=== PATIENT | female | born 1965 | race Caucasian/White ===

== ENCOUNTER → 2017-06-05 14:14 | Outpatient (CLI) | payer BC, SELFPAY ==
[2017-06-05 16:52] LABS: Thyroid Stim Hormone (TSH) 3.89 uIU/mL (0.358-3.74)
[2017-06-06 09:22] LABS: Vitamin B12 422 pg/mL (211-911)
== END ==
PROVIDERS: Family Provider Family Medicine; PCP Family Medicine; Visit Provider Psychiatry & Neurology Neurology
DX: R41.3 Other amnesia (principal)
CPT/HCPCS: 36415; 82607; 82746; 84443

== ENCOUNTER → 2017-06-19 17:55 | Outpatient (CLI) | payer BC, SELFPAY | PROVIDERS: Family Provider Family Medicine; PCP Family Medicine; Visit Provider Psychiatry & Neurology Neurology | DX: R41.3 Other amnesia (principal); Z79.899 Other long term (current) drug therapy; E66.01 Morbid (severe) obesity due to excess calories ==

== ENCOUNTER 2020-09-19 11:53 | Outpatient (RCR) | payer BC, SELFPAY | END 2020-10-18 23:59 | LOC: LABSPEC 11:53 | PROVIDERS: PCP Family Medicine; Visit Provider Family Medicine | DX: Z03.818 Encounter for observation for suspected exposure to other biological agents ruled out (principal) | CPT/HCPCS: 87635; U0005; U0003 ==

== ENCOUNTER 2024-12-23 13:11 | Emergency (ER) | payer BC, SELFPAY ==
[2024-12-23 13:16] VITALS: BP 144/87; PULSE 68; RESP 12; TEMP 36; O2SAT 97; BMI 34.9
[2024-12-23 13:20] VITALS: BP 146/83; PULSE 70; RESP 15; O2SAT 95
--- NOTE | 2024-12-23 13:32 | EKG12_ITS ---
Test Reason : CHEST PAIN Blood Pressure : */* mmHG Vent. Rate : 63 BPM Atrial Rate : 63 BPM P-R Int : 168 ms QRS Dur : 76 ms QT Int : 424 ms P-R-T Axes : 31 -7 27 degrees QTcB Int : 433 ms Normal sinus rhythm Low voltage QRS Borderline ECG Confirmed by VIRI TAM, XENIA ([id number]), editorial writer JATINDER LARSEN ([id number]) on 12/27/2024 9:03:13 AM Referred By: Confirmed By: XENIA MEREDITH MD
--- NOTE | 2024-12-23 13:48 | RAD_ITS ---
PROCEDURE: CHEST PA AND LATERAL 12/23/2024 REASON FOR EXAM: CHEST PAIN TECHNIQUE: Procedure Code: RADCXR Modality: DX Procedure: CHEST PA AND LATERAL COMPARISON: None FINDINGS: Hardware: EKG leads Heart: Normal Mediastinum: No Lungs: The lungs are clear. Bones: Mild degenerative changes. Mild exaggeration of the thoracic kyphosis. Grade 1 anterolisthesis in the lower lumbar spine. RAD/Chest PA and Lateral IMPRESSION: No acute cardiopulmonary process Reading Location: [id number]
[2024-12-23 13:52] LABS: Hematocrit 38.9 % (37-47); Hemoglobin 13.0 g/dL (12.0-15.0); Immature Granulocytes Count 0.010 X10^3/uL (0.0-0.0); Mean Corp Hgb Conc 33.4 g/dL (32-36); Mean Corpuscular Volume 88.8 fL (81-99); Mean Platelet Vol. 9.5 fl (6.2-12.0); NRBC Flagged by Analyzer 0 % (0-5); Platelet Count 282 K/mm3 (150-450); RBC Distribution Width CV 14.7 % (11.6-14.6); RBC Distribution Width SD 47.8 fl (35.1-43.9); Red Blood Count 4.38 M/mm3 (4.2-5.4); White Blood Count 4.8 K/mm3 (4.4-11.0)
[2024-12-23 14:26] LABS: Anion Gap 12 (5-15); BUN 12 mg/dL (4-19); BUN/Creat Ratio 12.0 RATIO (10-20); Calcium,Total 8.9 mg/dL (7.6-11.0); Carbon Dioxide 21.3 mmol/L (21.0-32.0); Chloride 108 mmol/L (98-108); Estimated Creatinine Clearance 69.64 ml/min (50-250); Glucose 109 mg/dL (70-99); Potassium 4.1 mmol/L (3.3-5.1); Pro- Brain NATRIURETIC PEPTIDE 96 pg/mL (<=900); Troponin T High Sensitivity 7 ng/L (<=14)
[2024-12-23 15:08] VITALS: BP 140/96; PULSE 55; RESP 14; O2SAT 97
[2024-12-23 15:54] LABS: Troponin T High Sens 2 HR 10 ng/L (<=14)
[2024-12-23 16:45] VITALS: BP 139/70; PULSE 56; RESP 16; O2SAT 99
[2024-12-23 16:58] VITALS: O2SAT 95
[2024-12-23 17:05] VITALS: PULSE 61; RESP 14; O2SAT 100
--- NOTE | 2024-12-23 17:41 | ED.VIS.CHEST ---
HPI History of Present Illness Chief Complaint: Chest Pain Narrative Narrative: Patient is a 59-year-old female who presented to the emergency department the chief complaint of chest pressure. States that yesterday she developed chest pressure and has been constant. States that nothing makes this better or worse. Patient denies any recent travel history denies any history of blood clots. Patient notes that she has around her sick grandchild recently and has been complaining of upper respiratory symptoms as well. Patient states that she has not had a stress test in the outpatient setting. Patient states that she does smoke. PFSH PFSH Home Medications ?Medication ?Instructions ?Recorded ?Last Taken ?Type bupropion HCl 300 mg 24 hr tablet, 300 mg PO DAILY 06/07/15 Unknown History extended release escitalopram oxalate 20 mg tablet 20 mg PO DAILY 06/07/15 Unknown History etodolac 300 mg capsule 300 mg PO TIDCM ##30 06/07/15 Unknown Rx gabapentin 400 mg capsule 400 mg PO DAILY 06/07/15 Unknown History gabapentin 800 mg tablet 800 mg PO QHS 06/07/15 Unknown History propranolol 10 mg tablet 10 mg PO TID PRN PRN UNKNOWN 06/07/15 Unknown History sumatriptan succinate 50 mg tablet 50 mg PO .X1 PRN 06/07/15 Unknown History tizanidine 4 mg tablet (Zanaflex) 4 mg PO Q8H PRN PRN Muscle Spasm 06/07/15 Unknown History topiramate 50 mg tablet (Topamax) 50 mg PO BID 06/07/15 Unknown History albuterol sulfate 90 mcg/actuation 2 puff inhalation Q6H PRN 12/23/24 Unknown Rx aerosol inhaler (Ventolin HFA) shortness of breath or wheezing #8.5 grams doxycycline hyclate 100 mg capsule 100 mg PO BID 5 days #10 caps 12/23/24 Unknown Rx prednisone 50 mg tablet 50 mg PO DAILY 5 days #5 tabs 12/23/24 Unknown Rx Allergy/AdvReac Type Severity Reaction Status Date / Time No Known Allergies Allergy Verified 06/07/15 17:04 Social History Smoking Status: Current every day smoker tobacco type: cigarettes ROS ROS ED ROS Narrative Constitutional: Denies any fevers, chills, headaches Cardiovascular: Complains of chest pressure as noted above denies palpitations Respiratory: Complains of cough denies any shortness of breath or wheezing Abdomen: Denies abdominal pain nausea vomit diarrhea Neurological: Denies any numbness, weakness, tingling Musculoskeletal: Denies any back pain Skin: Denies any rashes or lesions EXAM Physical Exam Narrative Exam Narrative: General: Patient was lying in bed rest comfortably did not appear to be in acute distress Head: Atraumatic, normocephalic Eyes: PERRL bilaterally, EOMI bilateral, no conjunctival injection noted Neck: Soft, supple, trachea midline Cardiovascular: Regular rate and rhythm Respiratory: Patient has end expiratory wheezing noted bilaterally Extremities: +5/5 strength noted in the bilateral lower extremity radial pulses +2/4 in the bilateral extremities, no pedal edema exam Neurological: Patient following commands as she was at [facility] years 2024 Skin: Warm, dry, tact no rashes or lesions noted Const Vital Signs: 12/23/24 13:16 12/23/24 13:20 12/23/24 13:52 Temperature 96.8 F L Temperature Source Temporal Pulse Rate 68 70 Respiratory Rate 12 15 Blood Pressure 144/87 H 146/83 H Blood Pressure Mean 106 104 Pulse Ox 97 95 Oxygen Delivery Method Room Air Room Air Room Air 12/23/24 15:08 12/23/24 16:45 12/23/24 17:05 Temperature Temperature Source Pulse Rate 55 L 56 L Respiratory Rate 14 16 Blood Pressure 140/96 H 139/70 H Blood Pressure Mean 110 93 Pulse Ox 97 99 100 Oxygen Delivery Method Room Air Room Air Room Air 12/23/24 17:05 Temperature Temperature Source Pulse Rate 61 Respiratory Rate 14 Blood Pressure Blood Pressure Mean Pulse Ox Oxygen Delivery Method MDM MDM MDM Narrative Medical decision making narrative: Patient is a 51-year-old female who presents to the emergency department chief complaint of chest discomfort. States that this pressure has been constant since yesterday and nothing makes this better or worse. On the differential diagnose includes but limited to ACS, pneumonia, pneumothorax, upper respiratory infection secondary viral etiology, COPD exacerbation. Once workup is obtained reviewed she will be reevaluated. Patient's CBC reviewed showed no evidence leukocytosis white blood count normal at 4.8, hemoglobin stable at 13, platelet count was noted to be 282. Patient sodium was 141, potassium normal 4.1, creatinine was 0.97. Patient's troponin was 7 with a delta troponin of 10 proBNP normal at 96. Patient's EKG showed sinus rhythm with a rate of [address] interval normal at 168. Patient chest x-ray reviewed by myself and by radiology which showed no acute cardiopulmonary processes. Patient was given 3 DuoNebs and Solu-Medrol. On reevaluation patient she is feeling better she would like to go home at this point time. Patient be given prescriptions for doxycycline as well as prednisone for the next 5 days. She will be given albuterol inhaler as well. She was vies follow-up with Dr. Powers send return with worsening symptoms or concerns. Given that she has not had a stress test in the outpatient setting she is also advised that she would have 1 of these is obtained as well. She is agreeable this plan as well as significant other at bedside all course concerns answered she was discharged home in stable condition. Lab Data Labs: Laboratory Results - last 24 hr 12/23/24 12/23/24 12:56 13:20 WBC 4.8 RBC 4.38 Hgb 13.0 Hct 38.9 MCV 88.8 MCH 29.7 MCHC 33.4 RDW Std Deviation 47.8 H RDW Coeff of Ho 14.7 H Plt Count 282 MPV 9.5 Immature Gran % (Auto) 0.200 Neut % (Auto) 58.0 Lymph % (Auto) 24.7 [place] % (Auto) 10.2 H Eos % (Auto) 5.0 Baso % (Auto) 1.9 H Absolute Neuts (auto) 2.8 Absolute Lymphs (auto) 1.19 Nucleated RBC % 0 Sodium 141 Potassium 4.1 Chloride 108 Carbon Dioxide 21.3 Anion Gap 12 BUN 12 Creatinine 0.97 Estim Creat Clear Calc 69.64 Est GFR (MDRD) Non-Af 68 BUN/Creatinine Ratio 12.0 Glucose 109 H Calcium 8.9 Troponin T High Sens 7 Troponin T Hi Sens 2 Hr 10 NT pro BNP II 96 Radiography Diagnostic Testing: Clinical Impression(s) from Imaging Studies Chest X-Ray 12/23/24 13:48 IMPRESSION: No acute cardiopulmonary process Reading Location: [facility] Discharge Plan Triage Chief Complaint: Chest Pain ED Provider: Alfredo Aguirre Dx/Rx/DC Orders Clinical Impression: COPD exacerbation, Chest pain, Viral upper respiratory infection Prescriptions: New albuterol sulfate [Ventolin HFA] 90 mcg/actuation HFA aerosol inhaler 2 puff inhalation Q6H PRN (Reason: shortness of breath or wheezing) Qty: 8.5 0RF prednisone 50 mg tablet 50 mg PO DAILY 5 Days Qty: 5 0RF doxycycline hyclate 100 mg capsule 100 mg PO BID 5 Days Qty: 10 0RF No Action tizanidine [Zanaflex] 4 MG tablet 4 mg PO Q8H PRN PRN (Reason: Muscle Spasm) gabapentin 400 MG capsule 400 mg PO DAILY sumatriptan succinate 50 MG tablet 50 mg PO .X1 PRN propranolol 10 MG tablet 10 mg PO TID PRN PRN (Reason: UNKNOWN) gabapentin 800 MG tablet 800 mg PO QHS escitalopram oxalate 20 MG tablet 20 mg PO DAILY bupropion HCl 300 MG tablet extended release 24 hr 300 mg PO DAILY topiramate [Topamax] 50 MG tablet 50 mg PO BID etodolac 300 MG capsule 300 mg PO TIDCM Qty: 30 0RF Rx Instructions: with food Primary Care Provider: Rogerio Millan Referrals: Rogerio Millan MD [Primary Care Provider] - Activity Restrictions/Additional Instructions: Follow-up your doctor in outpatient setting. To have your primary care physician order a stress test. Return with worsening symptoms or other concerns. Take antibiotics and steroids as prescribed. Use inhaler as prescribed. Print Language: [place]i Disposition Disposition: Home, Self Care
--- OUTSIDE RECORDS SUMMARY | 2024-12-23 21:27 | XMS RPT_ITS | CCD ---
Author Organization [facility] Care Team Providers Care Audit Consultant Name Role Phone PROVIDER, UNKNOWN Admitting Unavailable PROVIDER, UNKNOWN Attending Unavailable Rogerio Millan MD Primary Care Provider Kyler TAM, Rogerio Barnes Primary Care Provider Rogerio Millan MD Primary Care Provider Rogerio Millan MD Primary Care Provider Rogerio Millan MD Primary Care Provider Shai JAPANESE INTERPRETER.TREE WORKERAnne Unavailable Jennifer JAPANESE INTERPRETER.TREE WORKER, Rona Dickey Unavailable 1( [phone] KYLER, ROGERIO Primary Care Unavailable KYLER, ROGERIO Attending Unavailable KYLER, ROGERIO Referring Unavailable KYLER, ROGERIO Primary Care Unavailable SELF Referring Unavailable KYLER, ROGERIO Primary Care Unavailable KYLER, ROGERIO Attending Unavailable KYLER, ROGERIO Primary Care Unavailable KYLER, ROGERIO Referring Unavailable KYLER, ROGERIO Primary Care Unavailable KYLER, ROGERIO Attending Unavailable KYLER, ROGERIO Referring Unavailable KYLER, ROGERIO Primary Care Unavailable Dr. Rogerio Millan MD Primary Care Provider [phone] Dr. Alfredo Aguirre DO Emergency Provider [phone] Allergies Allergy Classification Reported Allergen(s) Allergy Type Date of Onset Reaction(s) Facility (20 sources) Furosemide; Translations: [FUROSEMIDE] Drug Allergy 06-07-2015 [facility] Medications Current Medications Medication Drug Class(es) Dates Sig (Normalized) Sig (Original) [id number] 200 actuat albuterol 0.09 mg/actuat metered dose inhaler (20 sources) beta2-Adrenergic Agonist Start: 12-23-2024 Albuterol Sulfate (Ventolin Hfa) 90 mcg/actuation HFA aerosol inhaler Active 2 NMA INHALATION EVERY 6 HOURS as needed for shortness of breath or wheezing 8.5 0 December 23, 2024 12:00am Start: 07-22-2019 take 2 puff(s) by in halation every four hours as needed for wheezing albuterol HFA (VENTOLIN HFA) 90 mcg/actuation inhaler Indications: Hemoptysis , Wheezing , Bronchitis Inhale 2 Puffs as instructed every 4 hours as needed for Wheezing/Shortness of Breath. 1 Inhaler 07/22/2019 Active Comment on above: Inhale 2 Puffs as in structed every 4 hours as needed for Wheezing/Shortness of Breath. 24 hr buPROPion hydrochloride 300 mg extended release oral tablet (20 sources) Aminoketone Start: End: take 1 tablet by mouth once daily buPROPion XL (WELLBUTRIN XL) 300 mg 24 hr tablet Indications: Depression, unspecified depression type Take 1 tablet by mouth once daily. 90 tablet 1 08/27/2024 Active Comment on above: Take 1 tablet by dasia th once daily. doxycycline hyclate 100 mg oral capsule (1 source) Tetracycline-class Drug Start: take 1 capsule by mouth twice daily Doxycycline Hyclate 100 mg capsule Active 100 mg PO TWICE A DAY 10 5 0 December 23, 2024 12:00am escitalopram 20 mg oral tablet (1 source) Serotonin Reuptake Inhibitor Start: take 1 tablet by mouth once daily Escitalopram Oxalate 20 MG tablet Active 20 mg PO DAILY June 07, 2015 1:00am etodolac 300 mg oral capsule (1 source) Nonsteroidal Anti-inflammatory Drug Start: take 1 capsule by mouth three times daily at mealtime Etodolac 300 MG capsule Active 300 mg PO 3 TIMES DAILY WITH MEALS 30 0 June 07, 2015 1:00am with food gabapentin 400 mg oral capsule (20 sources) Anti-epileptic Agent Start: End: take 1 capsule by mouth once daily in the morning, then take 2 capsules by mouth at bedtime gabapentin (NEURONTIN) 400 mg capsule Indications: Fibromyalgia Take 1 capsule by mouth every morning and 2 capsules at bedtime. 270 capsule 1 07/30/2024 05/11/2025 Active Start: 06-07-2015 take 1 tablet by dasia th at bedtime Gabapentin 800 MG tablet Active 800 mg PO AT BEDTIME June 07, 2015 1:00am Comment on above: Take 1 capsule by mo uth every morning and 2 capsules at bedtime. predniSONE 50 mg oral tablet (1 source) Start: 5 take 1 tablet by mouth once daily Prednisone 50 mg tablet Active 50 mg PO DAILY 5 5 0 December 23, 2024 12:00am propranolol hydrochloride 10 mg oral tablet (1 source) beta-Adrenergic Gabino Start: 6 take 1 tablet by mouth three times daily as needed SUMAtriptan 50 mg oral tablet (1 source) Serotonin-1b and Serotonin-1d Receptor Agonist Start: 6 Sumatriptan Succinate 50 MG tablet Active 50 mg PO .X1 PRN June 07, 2015 1:00am tiZANidine 4 mg oral tablet (1 source) Central alpha-2 Adrenergic Agonist Start: 6 take 1 tablet by mouth every eight hours as needed for muscle spasms Tizanidine (Zanaflex) 4 MG tablet Active 4 mg PO EVERY 8 HOURS NEEDED as needed for Muscle Spasm June 07, 2015 1:00am topiramate 50 mg oral tablet (20 sources) Start: 6 take 1 tablet by mouth twice daily Topiramate (Topamax) 50 MG tablet Active 50 mg PO TWICE A DAY June 07, 2015 1:00am take 1 capsule by mouth once deidra ly topiramate XR (TROKENDI XR) 50 mg capsule Take 1 capsule by mouth once daily. Active Comment on above: Take 1 capsule by mo uth once daily. Problems Active Problems Problem Classification Problem Date Documented Date Episodic/Chronic Acquired foot deformities (1 source) Talipes planus; Translations: [Flat foot [pes planus] (acquired), right foot] Episodic Chronic kidney disease (20 sources) Chronic kidney disease stage 3; Translations: [CKD (chronic kidney disease) stage 3, GFR 30-59 ml/min] Onset: 05-14-2020 Resolved: 05-21-2024 05-14-2020 Chronic Chronic obstructive pulmonary disease and bronchiectasis (1 source) Acute exacerbation of chronic obstructive airways disease; Translations: [Chronic obstructive pulmonary disease with (acute) exacerbation] 12-23-2024 Chronic Disorders of lipid metabolism (20 sources) Mixed hyperlipidemia; Translations: [Mixed hyperlipidemia] Onset: 07-31-2016 07-31-2016 Chronic Essential hypertension (20 sources) Hypertensive disorder; Translations: [Essential (primary) hypertension] Onset: 03-25-2014 03-25-2014 Chronic Headache; including migraine (20 sources) Migraine; Translations: [Migraine, unspecified, not intractable, without status migrainosus] Onset: 03-25-2014 04-26-2020 Chronic Immunizations and screening for infectious disease (14 sources) Patient encounter status; Translations: [Encounter for screening for human immunodeficiency virus [HIV]] Episodic Mood disorders (20 sources) Depressive disorder; Translations: [Depression, unspecified depression type] Onset: 03-25-2014 Chronic Nonspecific chest pain (1 source) Chest pain; Translations: [Chest pain, unspecified] 12-23-2024 Episodic Other connective tissue disease (1 source) Pain in both feet; Translations: [Pain in right foot] Episodic Other connective tissue disease (3 sources) Pain in left foot; Translations: [Pain in left foot] Episodic Other connective tissue disease (1 source) Plantar fasciitis of left foot; Translations: [Plantar fascial fibromatosis] Episodic Other diseases of kidney and ureters (1 source) Renal impairment; Translations: [Disorder of kidney and ureter, unspecified] 01-13-2023 Episodic Other hereditary and degenerative nervous system conditions (20 sources) Essential tremor; Translations: [Essential tremor] Onset: 03-25-2014 07-25-2016 Chronic Other hereditary and degenerative nervous system conditions (1 source) Essential tremor; Translations: [Tremor, essential] Onset: 07-25-2016 Chronic Other nutritional; endocrine; and metabolic disorders (16 sources) Obesity; Translations: [Obesity, unspecified] Onset: 01-23-2024 07-16-2023 Chronic Other nutritional; endocrine; and metabolic disorders (1 source) Body mass index (BMI) 36.0-36.9, adult; Translations: [Class 2 obesity with body mass index (BMI) of 36.0 to 36.9 in adult, unspecified obesity type, unspecified whether serious comorbidity present] Onset: 01-23-2024 Chronic Other screening for suspected conditions (not mental disorders or infectious disease) (4 sources) Thyroid hormone tests abnormal; Translations: [Other specified abnormal findings of blood chemistry] Onset: 05-21-2024 01-26-2024 Episodic Other upper respiratory infections (2 sources) Acute upper respiratory infection; Translations: [Acute upper respiratory infection, unspecified] 07-16-2023 Episodic Thyroid disorders (20 sources) Subclinical hypothyroidism; Translations: [Other specified hypothyroidism] Onset: 03-25-2014 Resolved: 07-25-2016 06-23-2017 Chronic Unclassified (1 source) Class 2 obesity with body mass index (BMI) of 36.0 to 36.9 in adult, unspecified obesity type, unspecified whether serious comorbidity present; Translations: [Class 2 obesity with body mass index (BMI) of 36.0 to 36.9 in adult, unspecified obesity type, unspecified whether serious comorbidity present] Onset: 01-23-2024 Past or Other Problems Problem Classification Problem Date Documented Da te Episodic/Chronic Diabetes mellitus without complication (20 sources) Hyperglycemia; Translations: [Hyperglycemia, unspecified] Onset: 11-24-2020 Resolved: 05-21-2024 11-24-2020 Episodic Gastrointestinal hemorrhage (14 sources) Rectal hemorrhage; Translations: [Hemorrhage of anus and rectum] Onset: 12-13-2010 Resolved: 12-31-2016 12-31-2016 Episodic Other connective tissue disease (20 sources) Fibromyalgia; Translations: [Fibromyalgia] Onset: 03-25-2014 Episodic Other nutritional; endocrine; and metabolic disorders (20 sources) Constitutional obesity; Translations: [Other obesity] Onset: 07-25-2016 Resolved: 07-16-2023 07-25-2016 Chronic Unclassified (2 sources) Patient encounter status 09-06-2024 Results Test Name Value Interpretation Reference Range Facility Absolute lymphocyte countOrd ered By: Alfredo Aguirre on 12-23-2024 Lymphocytes Auto (Unsp spec) [#/Vol] 1.19 10*3/uL 0.83-4.51 [facility] Absolute neutrophil countOrd ered By: Alfredo Aguirre on 12-23-2024 Neutrophils (Bld) [#/Vol] 2.8 10*3/uL 2.0-7.7 [facility] Anion gap in Serum or Plasma Ordered By: Alfredo Aguirre on 12-23-2024 Anion gap [Moles/Vol] 12 mmol/L 5-15 [facility] Automated lymphocyte count a s percentage of total leukocytesOrdered By: Alfredo Aguirre on 12-23-2024 Lymphocytes/100 WBC Auto (Unsp spec) 24.7 % 19-41 [facility] BUN/creatinine ratioOrdered By: Alfredo Aguirre on 12-23-2024 Urea nitrogen/Creatinine [Mass ratio] 12.0 mg/mg 10-20 [facility] Basophil percentageOrdered B y: Alfredo Aguirre on 12-23-2024 Basophils/100 WBC (Bld) 1.9 % High 0-1 [facility] Carbon dioxide, total [Moles /volume] in Central venous bloodOrdered By: Alfredo Aguirre on 12-23-2024 CO2 [Moles/Vol] 21.3 mmol/L 21.0-32.0 [facility] Chloride assayOrdered By: Lele Aguirre on 12-23-2024 Chloride [Moles/Vol] 108 mmol/L 98-108 [facility] Eosinophil percentageOrdered By: Alfredo Aguirre on 12-23-2024 Eosinophils/100 WBC (Bld) 5.0 % 0-5 [facility] Erythrocyte distribution wid th ratioOrdered By: Alfredo Aguirre on 12-23-2024 Erythrocyte distribution width (RBC) [Ratio] 14.7 % High 11.6-14.6 [facility] Erythrocyte distribution wid th standard deviationOrdered By: Alfredo Aguirre on 12-23-2024 Erythrocyte distribution width (RBC) [Ratio] 47.8 fl High 35.1-43.9 [facility] Glomerular filtration rate ( GFR) estimation/1.73 sq m using serum, plasma, or whole bOrdered By: Alfredo Aguirre on 12-23-2024 GFR/1.73 sq M.predicted among non-blacks MDRD (S/P/Bld) [Vol rate/Area] 68 mL/min/{1.73_m2} >60 [facility] Comment on above: mL/min/1.73m2 CKD-EP I Creatinine Equation (2020) Hematocrit Auto (Bld) [Volum e fraction]Ordered By: Alfredo Aguirre on 12-23-2024 Hematocrit (Bld) [Volume fraction] 38.9 % 37-47 [facility] Hemoglobin measurementOrdere d By: Alfredo Aguirre on 12-23-2024 Hemoglobin (Bld) [Mass/Vol] 13.0 g/dL 12.0-15.0 [facility] Immature granulocytes/100 WB C Auto (Bld)Ordered By: Alfredo Aguirre on 12-23-2024 Immature granulocytes/100 WBC (Bld) 0.200 % 0.0-0.9 [facility] Comment on above: IG% - Immature Granu locytes (promyelocytes, myelocytes and metamyelocytes) > 1% indicates that a LEFT SHIFT is Present. MCV (mean corpuscular volume ) determinationOrdered By: Alfredo Aguirre on 12-23-2024 MCV (RBC) [Entitic vol] 88.8 fL 81-99 [facility] Mean corpuscular hemoglobin (MCH) determinationOrdered By: Alfredo Aguirre on 12-23-2024 MCH (RBC) [Entitic mass] 29.7 pg 27.0-32.0 [facility] Mean corpuscular hemoglobin concentration (MCHC) determinationOrdered By: Alfredo Aguirre on 12-23-2024 MCHC (RBC) [Mass/Vol] 33.4 g/dL 32-36 [facility] Mean platelet volume determi nationOrdered By: Alfredo Aguirre on 12-23-2024 Platelet mean volume (Bld) [Entitic vol] 9.5 fL 6.2-12.0 [facility] Monocyte percentageOrdered B y: Alfredo Aguirre on 12-23-2024 Monocytes/100 WBC (Bld) 10.2 % High 0-10 [facility] Natriuretic peptide.B prohor brigida N-Terminal [Mass/volume] in Serum or PlasmaOrdered By: Alfredo Aguirre on 12-23-2024 Natriuretic peptide.B prohormone N-Terminal [Mass/Vol] 96 pg/mL <900 [facility] Comment on above: Heart Failure Unlike ly: < 300 pg/mLHeart Failure Likely< 50 Years: > 450 pg/mL50-75 Years: > 900 pg/mL>75 Years: > 1800 pg/mL Neutrophil percentageOrdered By: Alfredo Aguirre on 12-23-2024 Neutrophils/100 WBC (Bld) 58.0 % 47-70 [facility] Nucleated red blood cell per centageOrdered By: Alfredo Aguirre on 12-23-2024 Nucleated RBC/100 WBC (Bld) [Ratio] 0 % 0-5 [facility] Platelet countOrdered By: Lele Aguirre on 12-23-2024 Platelets (Bld) [#/Vol] 282 10*3/uL 150-450 [facility] Potassium measurement (mass/ volume)Ordered By: Alfredo Aguirre on 12-23-2024 Potassium (Unsp spec) [Mass/Vol] 4.1 mmol/L 3.3-5.1 [facility] RBC Auto (Bld) [#/Vol]Ordere d By: Alfredo Aguirre on 12-23-2024 RBC (Bld) [#/Vol] 4.38 10*6/uL 4.2-5.4 [facility] Serum creatinine measurement (mass/volume)Ordered By: Alfredo Aguirre on 12-23-2024 Creatinine [Mass/Vol] 0.97 mg/dL 0.70-1.20 [facility] Serum glucose measurement (m ass/volume)Ordered By: Alfredo Aguirre on 12-23-2024 Glucose [Mass/Vol] 109 mg/dL High 70-99 [facility] Serum or plasma calcium freddy urement (mass/volume)Ordered By: Alfredo Aguirre on 12-23-2024 Calcium [Mass/Vol] 8.9 mg/dL 7.6-11.0 [facility] Serum or plasma urea nitroge n measurement (mass/volume)Ordered By: Alfredo Aguirre on 12-23-2024 Urea nitrogen [Mass/Vol] 12 mg/dL 4-19 [facility] Sodium levelOrdered By: Cris Aguirre on 12-23-2024 Sodium [Moles/Vol] 141 mmol/L 133-145 [facility] Troponin T.cardiac [Mass/vol ume] in Serum or Plasma by High sensitivity methodOrdered By: Alfredo Aguirre on 12-23-2024 Troponin T.cardiac High sensitivity method [Mass/Vol] 10 ng/L <14 [facility] Troponin T.cardiac High sensitivity method [Mass/Vol] 7 ng/L <14 [facility] White blood cell (WBC) count Ordered By: Alfredo Aguirre on 12-23-2024 WBC (Bld) [#/Vol] 4.8 10*3/uL 4.4-11.0 [facility] T4/FTI/T4Uon 11-19-2024 FTI 5.3 ug/dL Normal 5.3-10.[address] [facility] Comment on above: Order Comment: Speci men Type: BLOOD SPECIMENOrdering Facility: [facility] Address: [address] [place] [address] Performed By: #### 3 016-3, T4FTI ####[facility] LABCLIA [id number] [place] [address] [place] T4 [Mass/Vol] 6.1 ug/dL Normal 5.5-10.[address] [facility] Comment on above: Order Comment: Speci men Type: BLOOD SPECIMENOrdering Facility: [facility] Address: [address] [place] [address] Performed By: #### 3 016-3, T4FTI ####[facility] LABCLIA [id number] [place] [address] [place] T4 uptake [Mass/Vol] 1.15 Normal 0.91-1.19 [facility] Comment on above: Order Comment: Speci men Type: BLOOD SPECIMENOrdering Facility: [facility] Address: [address] [place] [address] Performed By: #### 3 016-3, T4FTI ####[facility] LABIA [id number] [place] [address] [place] TSH SerPl-aCncon 11-19-2024 TSH Qn 6.560 m[IU]/L High 0.270-4.[address] [facility] Comment on above: Order Comment: Speci men Type: BLOOD SPECIMENOrdering Facility: [facility] Address: [address] [place] [address] Performed By: #### 3 016-3, T4FTI ####[facility] LABCLIA [id number] [place] [address] [place] CNOVon 11-05-2024 CNOV Office Visit (FAMPWS) DAMIAN SOLOMON ([id number]) 1965 F Date Time Provider Department 11/05/24 3:00 PM ROGERIO MILLAN FAMPWS During your visit today, we recorded the following information about you: Pulse Blood pressure Weight 64/minute 128/74 88.1 kg Rogerio Millan MD 11/05/2024 3:11 PM Signed - Continue taking your topiramate (Topamax) as prescribed; do not let your supply run out to prevent headaches and seizures. - Keep taking bupropion as prescribed for mood support. - Continue your gabapentin for fibromyalgia-related pain. - Maintain your physical therapy exercises as recommended. - Go for blood tests on November 19 to check your thyroid hormones (T4 and TSH). - In about six months, have labs drawn for thyroid-stimulating hormone (TSH), cholesterol, and a complete blood count; orders have been placed. - Complete the [facility] colorectal cancer screening kit after January 24; the order has been sent. - For leg vein discomfort, consider wearing support stockings; maintaining a healthy weight can help manage varicose veins. - Consider updating your tetanus and shingles vaccines; check your insurance coverage for these. - Schedule a follow-up visit in six months to review your labs and overall health. Rogerio Millan MD 11/05/2024 3:11 PM Signed Damian Solomon is a 59-year-old female with a history of migraines, fibromyalgia, and hypothyroidism, presenting for a 6-month follow-up. HPI Migraine: - Experiencing monthly migraines due to delayed Topamax refills. - Delay in refills reportedly due to insurance issues with [employer]. - Considering discussing medication change with neurologist at next appointment in 2 weeks. - Denies seizures. - No side effects from Topamax. Hypothyroidism: - Last blood work in January showed borderline thyroid levels. - Scheduled for T4 and TSH blood work on November 19. - Denies hair loss or constipation. - Reports weight loss. Fibromyalgia: - Managed with gabapentin; reports good control of symptoms. Depression: - Managed with bupropion; reports occasional aggravation at work. - No major side effects from medication. - Reports good sleep. 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 - Trying to lose weight; lost 3 lbs since last visit. - No chest pain or dyspnea. - is retired. MEDICATIONS: Current Outpatient Medications Medication Sig buPROPion XL (WELLBUTRIN XL) 300 mg 24 hr tablet Take 1 tablet by mouth once daily. gabapentin (NEURONTIN) 400 mg capsule Take 1 capsule by mouth every morning and 2 capsules at bedtime. albuterol HFA (VENTOLIN HFA) 90 mcg/actuation inhaler Inhale 2 Puffs as instructed every 4 hours as needed for Wheezing/Shortness of Breath. topiramate XR (TROKENDI XR) 50 mg capsule Take 1 capsule by mouth once daily. No current facility-administere d medications for this visit. ALLERGIES: ALLERGIES Allergen Reactions Lasix [Furosemide] Hives PAST MEDICAL HISTORY Diagnosis Date Arthritis back of head Depression Fibromyalgia Hemorrhage of gastrointestinal tract, unspecified Hemorrhage of rectum and anus Internal hemorrhoids without mention of complication Migraine Bavis Sleep deprivation brain won't let her sleep Unspecified essential hypertension Vulvar cellulitis 08/25/2019 PAST SURGICAL HISTORY Procedure Laterality Date APPENDECTOMY 2008 COLONOSCOPY FLX DX W/COLLJ SPEC WHEN PFRMD 12/18/10 PAST SURGICAL HISTORY OF 2009 carpal tunnel left wrist TOTAL ABDOMINAL HYSTERECT W/WO RMVL TUBE OVARY 2010 Hysterectomy, [place] FAMILY HISTORY Problem Relation Age of Onset Heart Father Diabetes Mother Asthma Mother Social History Tobacco Use Smoking status: Every Day Current packs/day: 0.50 Types: Cigarettes Smokeless tobacco: Never Vaping Use Vaping status: Never Used Substance Use Topics Alcohol use: No Drug use: No Reviewed current medications, allergies, past medical history, surgical history, family history and social history today. REVIEW OF SYSTEMS Constitutional: (+) weight loss, (-) insomnia Head: (+) headaches Cardiovascular: (-) chest pain Respiratory: (-) shortness of breath Gastrointestinal: (-) constipation, (-) abdominal pain Skin: (+) varicose veins, (-) alopecia Psychiatric: (+) irritability HEALTH MAINTENANCE: Reviewed health maintenance issues today and recommended the following in detail. Colorectal Cancer Screening due on 01/24/2025 LAB REVIEWED: Labs: - (January) T4 and TSH: Borderline results VITALS: BP 128/74 Pulse 64 Wt 88.1 kg (194 lb 3.2 oz) SpO2 98% BMI 36.66 kg/m? Last 4 Encounter Wt Readings: Date: Wt: 11/05/2024 88.1 kg (194 lb 3.2 oz) 05/21/2024 89.6 kg (197 lb 9.6 oz) 01/23/2024 86.7 kg (191 lb 2.2 oz) 07/16/2023 87.1 kg (192 lb) PHYSICAL EXAMINATION: GE (more content not included)... Normal [facility] DBT Breast - bilateral scree kyliegon 09-06-2024 IMPRESSION: There is no mammographic evidence of malignancy in either breast. Routine screening mammogram is recommended. Annual mammogram will be due in 1 year. BI-RADS Category 1: Negative RISK: Based on the Tyrer-Cuzick (TC) risk assessment model, this patient has a 5.6% lifetime risk of developing breast cancer, meaning they are at average risk for developing breast cancer. However, this is only an estimate based on available history provided on the patient's questionnaire. We encourage all patients to talk with their providers about these results, further recommendations for managing breast health, and appropriate supplemental screening options if the patient has dense breast tissue. Interpreting Radiologist: Linda Ward M.D. Electronically signed on: 09/06/2024 Global Ceo: ALEX Transcribe Date/Time: Sep 06 2024 9:48A Dictated by: LINDA WARD MD This examination was interpreted and the report reviewed and electronically signed by: LINDA WARD MD on Sep 06 2024 1:15PM [facility] DIVISION OF RADIOLOGY * * *Final Report* * * DATE OF EXAM: Sep 06 2024 10:00AM [id number] - [facility] SCREENING W LISSETH / PROCEDURE REASON: Encounter for screening mammogram for breast cancer * * * * Physician Interpretation * * * * RESULT: [address] [address] [place] [address] #[id number] - [facility] SCREENING W L[facility]SET[facility] HISTORY: 59 year-old patient seen for screening. Patient is asymptomatic in both breasts. Patient states no personal history of breast cancer. COMPARISON STUDIES: The present examination has been compared to prior imaging studies dated 12/31/2016 (mammogram), 02/05/2018 (mammogram), 05/18/2020 (mammogram), 07/16/2022 (mammogram) and 07/25/2023 (mammogram). MAMMOGRAM TECHNIQUE: The study was acquired using full field digital technology and interpreted from soft copy. Digital Breast Tomosynthesis (DBT) images were obtained and used to assist in the interpretation of this examination. MAMMOGRAM FINDINGS: There are scattered areas of fibroglandular density. No suspicious masses, calcifications or other abnormalities are seen in either breast. There are no significant interval changes. DIVISION OF RADIOLOGY Provider, [facility] [place] - 09/06/2024 * * *Final Report* * * DATE OF EXAM: Sep 06 2024 10:00AM [facility] 0582 - [facility] SCREENING W LISSETH / PROCEDURE REASON: Encounter for screening mammogram for breast cancer * * * * Physician Interpretation * * * * RESULT: [place] [address] #[id number] - [facility] [facility] SCREENING W LISSETH HISTORY: 59 year-old patient seen for screening. Patient is asymptomatic in both breasts. Patient states no personal history of breast cancer. COMPARISON STUDIES: The present examination has been compared to prior imaging studies dated 12/31/2016 (mammogram), 02/05/2018 (mammogram), 05/18/2020 (mammogram), 07/16/2022 (mammogram) and 07/25/2023 (mammogram). MAMMOGRAM TECHNIQUE: The study was acquired using full field digital technology and interpreted from soft copy. Digital Breast Tomosynthesis (DBT) images were obtained and used to assist in the interpretation of this examination. MAMMOGRAM FINDINGS: There are scattered areas of fibroglandular density. No suspicious masses, calcifications or other abnormalities are seen in either breast. There are no significant interval changes. IMPRESSION IMPRESSION: There is no mammographic evidence of malignancy in either breast. Routine screening mammogram is recommended. Annual mammogram will be due in 1 year. BI-RADS Category 1: Negative RISK: Based on the Tyrer-Cuzick (TC) risk assessment model, this patient has a 5.6% lifetime risk of developing breast cancer, meaning they are at average risk for developing breast cancer. However, this is only an estimate based on available history provided on the patient's questionnaire. We encourage all patients to talk with their providers about these results, further recommendations for managing breast health, and appropriate supplemental screening options if the patient has dense breast tissue. Interpreting Radiologist: Linda Ward M.D. Electronically signed on: 09/06/2024 Global Ceo: ALEX Transcribe Date/Time: Sep 06 2024 9:48A Dictated by: LINDA WARD MD This examination was interpreted and the report reviewed and electronically signed by: LINDA WARD MD on Sep 06 2024 1:15PM EST [facility] Radiology Study observation (narrative) [facility] DBT Breast - bilateral scree ningOrdered By: Ccf Provider on 09-06-2024 [facility] CHANG SCREENING W TOMOon 09-06 CHANG SCREENING W LISSETH * * *Final Report* * * DATE OF EXAM: Sep 06 2024 10:00AM [facility] [id number] - CHANG SCREENING W LISSETH / PROCEDURE REASON: Encounter for screening mammogram for breast cancer * * * * Physician Interpretation * * * * RESULT: [address] [address] [place] [address] #[id number] - CHANG SCREENING W LISSETH HISTORY: 59 year-old patient seen for screening. Patient is asymptomatic in both breasts. Patient states no personal history of breast cancer. COMPARISON STUDIES: The present examination has been compared to prior imaging studies dated 12/31/2016 (mammogram), 02/05/2018 (mammogram), 05/18/2020 (mammogram), 07/16/2022 (mammogram) and 07/25/2023 (mammogram). MAMMOGRAM TECHNIQUE: The study was acquired using full field digital technology and interpreted from soft copy. Digital Breast Tomosynthesis (DBT) images were obtained and used to assist in the interpretation of this examination. MAMMOGRAM FINDINGS: There are scattered areas of fibroglandular density. No suspicious masses, calcifications or other abnormalities are seen in either breast. There are no significant interval changes. IMPRESSION: There is no mammographic evidence of malignancy in either breast. Routine screening mammogram is recommended. Annual mammogram will be due in 1 year. BI-RADS Category 1: Negative RISK: Based on the Tyrer-Cuzick (TC) risk assessment model, this patient has a 5.6% lifetime risk of developing breast cancer, meaning they are at average risk for developing breast cancer. However, this is only an estimate based on available history provided on the patient's questionnaire. We encourage all patients to talk with their providers about these results, further recommendations for managing breast health, and appropriate supplemental screening options if the patient has dense breast tissue. Interpreting Radiologist: Linda Ward M.D. Electronically signed on: 09/06/2024 Global Ceo: ALEX Transcribe Date/Time: Sep 06 2024 9:48A Dictated by: LINDA WARD MD This examination was interpreted and the report reviewed and electronically signed by: LINDA WARD MD on Sep 06 2024 1:15PM EST [id number] CN Normal [facility] 06-14-2024 [facility] DAMIAN SOLOMON ([id number]) 1965 F Date Time Provider Department 06/14/24 ROGERIO MILLAN [facility] During your visit today, we recorded the following information about you: Monie Padron MA 06/14/2024 5:36 PM Signed Type of form: Physical Attestation Form Form received via walk in When form is completed, Fax form to [facility] [phone] Form has been forwarded to Physician Desk: PING Carrington William J, MD 06/14/2024 5:56 PM Signed done Shola Frye LPN 06/14/2024 6:26 PM Signed Completed. Allergies As of Date: 06/14/2024 Noted Allergy Reaction LASIX (FUROSEMIDE) 06/07/2015 4 - Hives Date Reviewed: 05/21/2024 Reviewed by: Stephanie Damian OCCA - Fully Assessed Reason for Visit: Forms [913] Prescriptions as of 06/14/2024 - buPROPion XL (WELLBUTRIN XL) 300 mg 24 hr tablet Take 1 tablet by mouth once daily. - gabapentin (NEURONTIN) 400 mg capsule Take 1 capsule by mouth every morning and 2 capsules at bedtime. - albuterol HFA (VENTOLIN HFA) 90 mcg/actuation inhaler Inhale 2 Puffs as instructed every 4 hours as needed for Wheezing/Shortness of Breath. - topiramate XR (TROKENDI XR) 50 mg capsule Take 1 capsule by mouth once daily. Problem List As Of Date 06/14/2024 Noted Resolved Rectal bleeding [K62.5] 12/13/2010 12/31/2016 Tremor, essential [G25.0] 03/25/2014 Migraine [G43.909] 03/25/2014 Fibromyalgia [M79.7] 03/25/2014 Hypertension [I10] 03/25/2014 Hypothyroid [E03.9] 03/25/2014 07/25/2016 Depressed [F32.A] 03/25/2014 Constitutional obesity [E66.89] 07/25/2016 07/16/2023 Mixed hyperlipidemia [E78.2] 07/31/2016 Subclinical hypothyroidism [E03.8] 06/23/2017 CKD (chronic kidney disease) stage 3, GFR 30-59*05/14/2020 05/21/2024 Hyperglycemia [R73.9] 11/24/2020 05/21/2024 Class 2 obesity with body mass index (BMI) of 3*01/23/2024 Encounter Status:Closed by SHOLA FRYE on 06/14/[address] [facility] CNOVon 05-21-2024 CNOV Office Visit (FAMPWS) LEANDRODAMIAN ([id number]) 1965 F Date Time Provider Department 05/21/24 8:00 AM ROGERIO MILLAN During your visit today, we recorded the following information about you: Pulse Respiration Blood pressure Weight 72/minute 18/minute 126/74 89.6 kg Height 1.55 m Rogerio Millan MD 05/21/2024 8:28 AM Signed Patient presents with: Yearly Exam: Annual exam, also discuss labs HPI: Patient presents today for office visit for routine physical. NEURO: [facility] [place]. Hx of headaches. Continues on Topiramate daily. PSYCH: Moods are good. Continues on Wellbutrin daily. No side effects. FIBRO: Taking Gabapentin. Renal function had improved on last labs. Sugars were better No signs of hypothyroidism. Tsh is subclinical with normal t4. Latest Ref Rng 01/23/2024 WBC 3.70 - 11.00 k/uL 6.58 RBC 3.90 - 5.20 m/uL 4.69 Hemoglobin 11.5 - 15.5 g/dL 13.4 Hematocrit 36.0 - 46.0 % 42.7 MCV 80.0 - 100.0 fL 91.0 MCH 26.0 - 34.0 pg 28.6 MCHC 30.5 - 36.0 g/dL 31.4 RDW-CV 11.5 - 15.0 % 15.1 (H) Platelet Count 150 - 400 k/uL 317 MPV 9.0 - 12.7 fL 9.9 Neut% % 57.9 Abs Neut (ANC) 1.45 - 7.50 k/uL 3.82 Lymph% % 27.5 Abs Lymph 1.00 - 4.00 k/uL 1.81 [place]% % 8.7 Abs [place] <0.87 k/uL 0.57 Eosin% % 4.0 Abs Eosin <0.46 k/uL 0.26 Baso% % 1.4 Abs Baso <0.11 k/uL 0.09 Immature Gran % % 0.5 IMMATURE GRANS (ABS) <0.10 k/uL 0.03 NRBC /100 WBC 0.0 Absolute nRBC <0.01 k/uL <0.01 DTYPE Auto Protein, Total 6.3 - 8.0 g/dL 7.1 Albumin 3.9 - 4.9 g/dL 4.2 Calcium 8.5 - 10.2 mg/dL 9.2 Bilirubin, Total 0.2 - 1.3 mg/dL 0.2 Alkaline Phosphatase 34 - 123 U/L 98 AST 13 - 35 U/L 19 ALT 7 - 38 U/L 17 Glucose 74 - 99 mg/dL 92 BUN 7 - 21 mg/dL 13 Creatinine 0.58 - 0.96 mg/dL 0.94 Sodium 136 - 144 mmol/L 143 Potassium 3.7 - 5.1 mmol/L 4.5 Chloride 98 - 107 mmol/L 107 CO2 22 - 30 mmol/L 23 Anion Gap 8 - 15 mmol/L 13 eGFR >=60 mL/min/1.73m? 70 Cholesterol, Total <200 mg/dL 223 (H) Triglyceride <150 mg/dL 110 HDL Cholesterol >39 mg/dL 59 Non HDL Cholesterol <130 mg/dL 164 (H) Fasting Time hrs 12 VLDL Cholesterol <30 mg/dL 22 TC:HDL Ratio <5.10 3.78 LDL Cholesterol <100 mg/dL 142 (H) LDL:HDL Ratio <2.54 2.41 Hemoglobin A1C 4.3 - 5.6 % 5.5 Estimated Average Glucose mg/dL 111 TSH 0.270 - 4.200 mIU/L 7.990 (H) Free T4 0.9 - 1.7 ng/dL 0.9 MEDICATIONS: Current Outpatient Medications Medication Sig buPROPion XL (WELLBUTRIN XL) 300 mg 24 hr tablet Take 1 tablet by mouth once daily. gabapentin (NEURONTIN) 400 mg capsule Take 1 capsule by mouth every morning and 2 capsules at bedtime. albuterol HFA (VENTOLIN HFA) 90 mcg/actuation inhaler Inhale 2 Puffs as instructed every 4 hours as needed for Wheezing/Shortness of Breath. topiramate XR (TROKENDI XR) 50 mg capsule Take 1 capsule by mouth once daily. No current facility-administere d medications for this visit. ALLERGIES: ALLERGIES Allergen Reactions Lasix [Furosemide] Hives PAST MEDICAL HISTORY Diagnosis Date Arthritis back of head Depression Fibromyalgia Hemorrhage of gastrointestinal tract, unspecified Hemorrhage of rectum and anus Internal hemorrhoids without mention of complication Migraine Bavis Sleep deprivation brain won't let her sleep Unspecified essential hypertension Vulvar cellulitis 08/25/2019 PAST SURGICAL HISTORY Procedure Laterality Date APPENDECTOMY 2009 COLONOSCOPY FLX DX W/COLLJ SPEC WHEN PFRMD 12/18/10 PAST SURGICAL HISTORY OF 2010 carpal tunnel left wrist TOTAL ABDOMINAL HYSTERECT W/WO RMVL TUBE OVARY 2010 Hysterectomy, [place] FAMILY HISTORY Problem Relation Age of Onset Heart Father Diabetes Mother Asthma Mother Social History Tobacco Use Smoking status: Every Day Current packs/day: 0.50 Types: Cigarettes Smokeless tobacco: Never Vaping Use Vaping status: Never Used Substance Use Topics Alcohol use: No Drug use: No Reviewed current medications, allergies, past medical history, surgical history, family history and social history today. REVIEW OF SYSTEMS GENERAL: No weight loss, malaise or fevers NECK: Negative for lumps, goiter, pain and significant neck swelling RESPIRATORY: Negative for cough, hemoptysis, wheezing, COPD, dyspnea or shortness of breath CARDIOVASCULAR: Negative for chest pain, leg swelling, hypertension, CHF or palpitations GI: No nausea, vomiting, or diarrhea : No history of dysuria, frequency or incontinence FIELD RADIO OPERATOR: Negative for abnormal vaginal bleeding, abnormal vaginal discharge SKIN: Negative for lesions, rash, and itching PSYCH: Negative for sleep disturbance, mood disorder and recent psychosocial stressors HEMATOLOGY/LYMPHOLOG Y: Negative for prolonged bleeding, bruising easily or swollen nodes All other reviewed and negative other than HPI. HEALTH MAINTENANCE: Revi (more content not included)... Normal [facility] 01-26-2024 [facility] DAMIAN SOLOMON ([id number]) 1965 F Date Time Provider Department 01/26/24 [facility] During your visit today, we recorded the following information about you: Rona Rodriguez APRN.[facility] 01/26/2024 1:26 PM Signed Please call labs and ask them to run a free T4. Gisela Roy MA 01/26/2024 1:34 PM Signed Spoke with Ruth Ann and she stated that this can be added. Gisela Roy MA Allergies As of Date: 01/26/2024 Noted Allergy Reaction LASIX (FUROSEMIDE) 06/07/2015 4 - Hives Date Reviewed: 01/23/2024 Reviewed by: Shola Frye LPN - Fully Assessed Primary Visit Diagnosis:Abnormal TSH [R79.89] Order(s):T4 FREE/FREE THYROXINE [SQFT4] Order #: [id number] FUTURE Prescriptions as of 01/26/2024 - buPROPion XL (WELLBUTRIN XL) 300 mg 24 hr tablet Take 1 tablet by mouth once daily. - gabapentin (NEURONTIN) 400 mg capsule Take 1 capsule by mouth every morning and 2 capsules at bedtime. - albuterol HFA (VENTOLIN HFA) 90 mcg/actuation inhaler Inhale 2 Puffs as instructed every 4 hours as needed for Wheezing/Shortness of Breath. - topiramate XR (TROKENDI XR) 50 mg capsule Take 1 capsule by mouth once daily. Problem List As Of Date 01/26/2024 Noted Resolved Rectal bleeding [K62.5] 12/13/2010 12/31/2016 Tremor, essential [G25.0] 03/25/2014 Migraine [G43.909] 03/25/2014 Fibromyalgia [M79.7] 03/25/2014 Hypertension [I10] 03/25/2014 Hypothyroid [E03.9] 03/25/2014 07/25/2016 Depressed [F32.A] 03/25/2014 Constitutional obesity [E66.89] 07/25/2016 07/16/2023 Mixed hyperlipidemia [E78.2] 07/31/2016 Subclinical hypothyroidism [E03.8] 06/23/2017 CKD (chronic kidney disease) stage 3, GFR 30-59*05/14/2020 Hyperglycemia [R73.9] 11/24/2020 Class 2 obesity with body mass index (BMI) of 3*01/23/2024 Encounter Status:Closed by GISELA ROY on 10/7/24 Normal [facility] Telephone ([facility]) LEANDRODAMIAN ([id number]) 1965 F Date Time Provider Department 01/26/24 RONA RODRIGUEZ [facility] During your visit today, we recorded the following information about you: Gisela Roy MA 01/26/2024 4:18 PM Signed ----- Message from Rona Rodriguez sent at 01/26/2024 3:34 PM EDT ----- Although your TSH is elevated and can indicate hypothyroidism, your actual thyroid function was normal. No change needed. No diabetes. LDL cholesterol is a little high. Remember to follow a diet low in saturated fats by eliminating fried foods and choosing only lean meat/skim dairy products. Gisela Roy MA 01/26/2024 4:19 PM Signed Pt notified of results via [facility]. Gisela Roy Ma Allergies As of Date: 01/26/2024 Noted Allergy Reaction LASIX (FUROSEMIDE) 06/07/2015 4 - Hives Date Reviewed: 01/23/2024 Reviewed by: Shola Frye LPN - Fully Assessed Reason for Visit: Results [95] Prescriptions as of 01/26/2024 - buPROPion XL (WELLBUTRIN XL) 300 mg 24 hr tablet Take 1 tablet by mouth once daily. - gabapentin (NEURONTIN) 400 mg capsule Take 1 capsule by mouth every morning and 2 capsules at bedtime. - albuterol HFA (VENTOLIN HFA) 90 mcg/actuation inhaler Inhale 2 Puffs as instructed every 4 hours as needed for Wheezing/Shortness of Breath. - topiramate XR (TROKENDI XR) 50 mg capsule Take 1 capsule by mouth once daily. Problem List As Of Date 01/26/2024 Noted Resolved Rectal bleeding [K62.5] 12/13/2010 12/31/2016 Tremor, essential [G25.0] 03/25/2014 Migraine [G43.909] 03/25/2014 Fibromyalgia [M79.7] 03/25/2014 Hypertension [I10] 03/25/2014 Hypothyroid [E03.9] 03/25/2014 07/25/2016 Depressed [F32.A] 03/25/2014 Constitutional obesity [E66.89] 07/25/2016 07/16/2023 Mixed hyperlipidemia [E78.2] 07/31/2016 Subclinical hypothyroidism [E03.8] 06/23/2017 CKD (chronic kidney disease) stage 3, GFR 30-59*05/14/2020 Hyperglycemia [R73.9] 11/24/2020 Class 2 obesity with body mass index (BMI) of 3*01/23/2024 Encounter Status:Closed by GISELA ROY on 01/26/[address] [facility] Free T4 [Mass/Vol]on 024 Interpretation and review of laboratory results Normal [facility] T4 FREE/FREE THYROXINEon Free T4 [Mass/Vol] 0.9 ng/dL 0.9 - 1.7 ng/dL [facility] CBC W Auto Differential pane l (Bld)on 01-23-2024 Basophils (Bld) [#/Vol] 0.09 10*3/uL Normal <0.[address] [facility] Comment on above: Order Comment: Speci men Type: BLOOD SPECIMENOrdering Facility: [facility] Address: [address] [place] [address] Performed By: #### 5 7021-8 ####[facility] LABCLIA [id number] [place] [address] [place] Basophils/100 WBC (Bld) 1.4 % Normal C [facility] Comment on above: Order Comment: Speci men Type: BLOOD SPECIMENOrdering Facility: [facility] Address: [address] [place] [address] Performed By: #### 5 7021-8 ####[facility] LABCLIA [id number] [address] [id number] [address] [place] Differential cell count method Nom (Bld) Auto Normal [facility] Comment on above: Order Comment: Speci men Type: BLOOD SPECIMENOrdering Facility: [facility] Address: [address] [place] [address] Performed By: #### 5 7021-8 ####[facility] LABCLIA [id number] [place] [address] [place] Eosinophils (Bld) [#/Vol] 0.26 10*3/uL Normal <0.[address] [facility] Comment on above: Order Comment: Speci men Type: BLOOD SPECIMENOrdering Facility: [facility] Address: [address] [place] [address] Performed By: #### 5 7021-8 ####[facility] LABIA [id number] [place] [address] [place] Eosinophils/100 WBC (Bld) 4.0 % Normal [facility] Comment on above: Order Comment: Speci men Type: BLOOD SPECIMENOrdering Facility: [facility] Address: [address] [place] [address] Performed By: #### 5 7021-8 ####[facility] LABIA [id number] [place] [address] [place] Erythrocyte distribution width (RBC) [Ratio] 15.1 % High 11.5-15.[address] [facility] Comment on above: Order Comment: Speci men Type: BLOOD SPECIMENOrdering Facility: [facility] Address: [address] [place] [address] Performed By: #### 5 7021-8 ####[facility] LABIA [id number] [place] [address] [place] Hematocrit (Bld) [Volume fraction] 42.7 % Normal 36.0-46.[address] [facility] Comment on above: Order Comment: Speci men Type: BLOOD SPECIMENOrdering Facility: [facility] Address: [address] [place] [address] Performed By: #### 5 7021-8 ####[facility] LABCLIA [id number] [place] [address] [place] Hemoglobin (Bld) [Mass/Vol] 13.4 g/dL Normal 11.5-15.[address] [facility] Comment on above: Order Comment: Speci men Type: BLOOD SPECIMENOrdering Facility: [facility] Address: [address] [place] [address] Performed By: #### 5 7021-8 ####[facility] LABCLIA [id number] [place] [address] [place] Immature granulocytes (Bld) [#/Vol] 0.03 10*3/uL Normal <0.[address] [facility] Comment on above: Order Comment: Speci men Type: BLOOD SPECIMENOrdering Facility: [facility] Address: [address] [place] [address] Performed By: #### 5 7021-8 ####[facility] LABCLIA [id number] [place] [address] [place] Immature granulocytes/100 WBC (Bld) 0.5 % Normal [facility] Comment on above: Order Comment: Speci men Type: BLOOD SPECIMENOrdering Facility: [facility] Address: [address] [place] [address] Performed By: #### 5 7021-8 ####[facility] LABCLIA [id number] [place] [address] [place] Lymphocytes (Bld) [#/Vol] 1.81 10*3/uL Normal 1.00-4.[address] [facility] Comment on above: Order Comment: Speci men Type: BLOOD SPECIMENOrdering Facility: [facility] Address: [address] [place] [address] Performed By: #### 5 7021-8 ####[facility] LABCLIA [id number] [place] [address] [place] Lymphocytes/100 WBC (Bld) 27.5 % Normal [facility] Comment on above: Order Comment: Speci men Type: BLOOD SPECIMENOrdering Facility: [facility] Address: [address] [place] [address] Performed By: #### 5 7021-8 ####[facility] LABIA [id number] [place] [address] [place] MCH (RBC) [Entitic mass] 28.6 pg Normal 26.0-34.[address] [facility] Comment on above: Order Comment: Speci men Type: BLOOD SPECIMENOrdering Facility: [facility] Address: [address] [place] [address] Performed By: #### 5 7021-8 ####[facility] LABCLIA [id number] [place] [address] [place] MCHC (RBC) [Mass/Vol] 31.4 g/dL Normal 30.5-36.0 [facility] Comment on above: Order Comment: Speci men Type: BLOOD SPECIMENOrdering Facility: [facility] Address: [address] [place] [address] Performed By: #### 5 7021-8 ####[facility] LABIA [id number] [place] [address] [place] MCV (RBC) [Entitic vol] 91.0 fL Normal 80.0-100.0 C [facility] Comment on above: Order Comment: Speci men Type: BLOOD SPECIMENOrdering Facility: [facility] Address: [address] [place] [address] Performed By: #### 5 7021-8 ####[facility] LABIA [id number] [place] [address] [place] Monocytes (Bld) [#/Vol] 0.57 10*3/uL Normal <0.[address] [facility] Comment on above: Order Comment: Speci men Type: BLOOD SPECIMENOrdering Facility: [facility] Address: [address] [place] [address] Performed By: #### 5 7021-8 ####[facility] LABCLIA [id number] [place] [address] [place] Monocytes/100 WBC (Bld) 8.7 % Normal [facility] Comment on above: Order Comment: Speci men Type: BLOOD SPECIMENOrdering Facility: [facility] Address: [address] [place] [address] Performed By: #### 5 7021-8 ####[facility] LABCLIA [id number] [place] [address] [place] Neutrophils (Bld) [#/Vol] 3.82 10*3/uL Normal 1.45-7.[address] [facility] Comment on above: Order Comment: Speci men Type: BLOOD SPECIMENOrdering Facility: [facility] Address: [address] [place] [address] Performed By: #### 5 7021-8 ####[facility] LABIA [id number] [place] [address] [place] Neutrophils/100 WBC (Bld) 57.9 % Normal [facility] Comment on above: Order Comment: Speci men Type: BLOOD SPECIMENOrdering Facility: [facility] Address: [address] [place] [address] Performed By: #### 5 7021-8 ####[facility] LABCLIA [id number] [place] [address] [place] Nucleated RBC (Bld) [#/Vol] 10*3/uL Normal <0.[address] [facility] Comment on above: Order Comment: Speci men Type: BLOOD SPECIMENOrdering Facility: [facility] Address: [address] [place] [address] Performed By: #### 5 7021-8 ####[facility] LABCLIA [id number] [place] [address] [place] Nucleated RBC/100 WBC (Bld) [Ratio] 0.0 /100 WBC Normal [facility] Comment on above: Order Comment: Speci men Type: BLOOD SPECIMENOrdering Facility: [facility] Address: [address] [place] [address] Performed By: #### 5 7021-8 ####[facility] LABCLIA [id number] [place] [address] [place] Platelet mean volume (Bld) [Entitic vol] 9.9 fL Normal 9.0-12.[address] [facility] Comment on above: Order Comment: Speci men Type: BLOOD SPECIMENOrdering Facility: [facility] Address: [address] [place] [address] Performed By: #### 5 7021-8 ####[facility] LABCLIA [id number] [place] [address] [place] Platelets (Bld) [#/Vol] 317 10*3/uL Normal 150-[address] [facility] Comment on above: Order Comment: Speci men Type: BLOOD SPECIMENOrdering Facility: [facility] Address: [address] [place] [address] Performed By: #### 5 7021-8 ####[facility] LABCLIA [id number] [place] [address] [place] RBC (Bld) [#/Vol] 4.69 10*6/uL Normal 3.90-5.20 [facility] Comment on above: Order Comment: Speci men Type: BLOOD SPECIMENOrdering Facility: [facility] Address: [address] [place] [address] Performed By: #### 5 7021-8 ####[facility] LABCLIA [id number] [place] [address] [place] WBC (Bld) [#/Vol] 6.58 10*3/uL Normal 3.70-11.00 [facility] Comment on above: Order Comment: Speci men Type: BLOOD SPECIMENOrdering Facility: [facility] Address: [address] [place] [address] Performed By: #### 5 7021-8 ####[facility] LABCLIA [id number] [address] [place] [address] [facility] CNOVon 01-23-2024 CNOV Office Visit (FAMPWS) DAMIAN SOLOMON ([id number]) 1965 F Date Time Provider Department 01/23/24 8:40 AM [facility] During your visit today, we recorded the following information about you: Pulse Blood pressure Weight 65/minute 122/72 86.7 kg Rogerio Millan MD 01/23/2024 9:00 AM Signed Patient presents with: 6 Month Exam HPI: Patient presents today for office visit for 6 month exam. FIBRO: Continues on Gabapentin 400 mg 1 capsule in the a.m 2 capsules qhs. Doing well on current dose. Feeling good. No side effects. NEURO: Follows with Neuro in [place] for headaches. Stable. Gets them usually more with stress. Continues on Topiramate 50 mg daily PSYCH: Current medication: Bupropion 300 mg daily No depression or anxiety. Feels current dose is working well. Tremor has been ok. Has fasting labs ordered already Bp is well controlled. MEDICATIONS: Current Outpatient Medications Medication Sig buPROPion XL (WELLBUTRIN XL) 300 mg 24 hr tablet Take 1 tablet by mouth once daily. gabapentin (NEURONTIN) 400 mg capsule Take 1 capsule by mouth every morning and 2 capsules at bedtime. albuterol HFA (VENTOLIN HFA) 90 mcg/actuation inhaler Inhale 2 Puffs as instructed every 4 hours as needed for Wheezing/Shortness of Breath. topiramate XR (TROKENDI XR) 50 mg capsule Take 1 capsule by mouth once daily. No current facility-administere d medications for this visit. ALLERGIES: ALLERGIES Allergen Reactions Lasix [Furosemide] Hives PAST MEDICAL HISTORY Diagnosis Date Arthritis back of head Depression Fibromyalgia Hemorrhage of gastrointestinal tract, unspecified Hemorrhage of rectum and anus Internal hemorrhoids without mention of complication Migraine Bavis Sleep deprivation brain won't let her sleep Unspecified essential hypertension Vulvar cellulitis 08/25/2019 PAST SURGICAL HISTORY Procedure Laterality Date APPENDECTOMY 2008 COLONOSCOPY FLX DX W/COLLJ SPEC WHEN PFRMD 12/18/10 PAST SURGICAL HISTORY OF 2010 carpal tunnel left wrist TOTAL ABDOMINAL HYSTERECT W/WO RMVL TUBE OVARY 2010 Hysterectomy, MIRACLE FAMILY HISTORY Problem Relation Age of Onset Heart Father Diabetes Mother Asthma Mother Social History Tobacco Use Smoking status: Every Day Current packs/day: 0.50 Types: Cigarettes Smokeless tobacco: Never Vaping Use Vaping status: Never Used Substance Use Topics Alcohol use: No Drug use: No Reviewed current medications, allergies, past medical history, surgical history, family history and social history today. REVIEW OF SYSTEMS Denies chest pain or shortness of breath. All other reviewed and negative other than HPI. HEALTH MAINTENANCE: Reviewed health maintenance issues today and recommended the following in detail. Anxiety Screening Never done Covid-19 Vaccine(2023- season) Never done VITALS: BP 122/72 Pulse 65 Wt 86.7 kg (191 lb 2.2 oz) SpO2 97% BMI 36.00 kg/m? Last 4 Encounter Wt Readings: Date: Wt: 07/16/2023 87.1 kg (192 lb) 01/10/2023 83.9 kg (185 lb) 07/12/2022 82.6 kg (182 lb) 01/11/2022 79.9 kg (176 lb 1.9 oz) PHYSICAL EXAMINATION: General appearance: Well appearing, alert, in no acute distress, well-hydrated, well nourished. Skin: Skin color, texture, turgor normal, no suspicious rashes or lesions Head: Normocephalic, no masses, lesions, tenderness or abnormalities Lungs: Lungs clear to auscultation. No wheezing, rhonchi, rales Heart: RRR without murmur, gallop, or rubs. No ectopy Abdomen: Normal abdominal exam, Abdomen soft, non-tender. Bowel sounds normal. No masses, organomegaly Extremities: No deformities, edema, skin discoloration, clubbing or cyanosis. Good capillary refill. Musculoskeletal: No joint swelling, deformity, or tenderness ASSESSMENT/PLAN: 1. Tremor, essential - ICD9: 333.1, ICD10: G25.0 (primary diagnosis) - stable. 2. Depression, unspecified depression type - ICD9: 311, ICD10: F32.A - Continue current medications. Notify us if any difficulties are noted. - BUPROPION XL 300 MG 24 HR TAB 3. Fibromyalgia - ICD9: 729.1, ICD10: M79.7 - working well. - GABAPENTIN 400 MG CAPSULE 4. Primary hypertension - ICD9: 401.9, ICD10: I10 - Controlled - able to control without meds. 5. Mixed hyperlipidemia - ICD9: 272.2, ICD10: E78.2 - Control undetermined, due for labs - has labs ordered 6. Stage 3a chronic kidney disease (HCC) - ICD9: 585.3, ICD10: N18.31 - follow labs. 7. Subclinical hypothyroidism - ICD9: 244.8, ICD10: E03.8 - follow labs. 8. Hyperglycemia - ICD9: 790.29, ICD10: R73.9 - has ordered. 9. Class 2 obesity with body mass index (BMI) of 36.0 to 36.9 in adult, unspecified obesity type, unspecified whether serious comorbidity present - ICD9: 278.00, V85.36, ICD10: E66.812, Z68.36 - watch diet. Rogerio MATTSON in six months (more content not included)... Normal [facility] Comprehensive metabolic 2000 panelon 01-23-2024 Albumin [Mass/Vol] 4.2 g/dL Normal 3.9-4.9 [facility] Comment on above: Order Comment: Speci men Type: BLOOD SPECIMENOrdering Facility: [facility] Address: [address] [place] [address] Performed By: #### 3 016-3, 49880-1, 41002-2, 3024-7 ####[facility] LABCLIA [id number] [facility] [place] [address] [place] ALP [Catalytic activity/Vol] 98 U/L Normal 34-[address] [facility] Comment on above: Order Comment: Speci men Type: BLOOD SPECIMENOrdering Facility: [facility] Address: [facility] [place] [address] Performed By: #### 3 016-3, 62050-4, 55231-7, 7 ####[facility] LABCLIA [id number] [place] [address] [place] ALT [Catalytic activity/Vol] 17 U/L Normal 7-[address] [facility] Comment on above: Order Comment: Speci men Type: BLOOD SPECIMENOrdering Facility: [facility] Address: [address] [place] [address] Performed By: #### 3 016-3, 11146-0, 12824-4, 7 ####[facility] LABCLIA [id number] [place] [address] [place] Anion gap [Moles/Vol] 13 mmol/L Normal 8-15 [facility] Comment on above: Order Comment: Speci men Type: BLOOD SPECIMENOrdering Facility: [facility] Address: [address] [place] [address] Performed By: #### 3 016-3, 56602-6, 33901-0, 7 ####[facility] LABCLIA [id number] [place] [address] [place] AST [Catalytic activity/Vol] 19 U/L Normal 13-[address] [facility] Comment on above: Order Comment: Speci men Type: BLOOD SPECIMENOrdering Facility: [facility] Address: [address] [place] [address] Performed By: #### 3 016-3, 29954-8, 72995-8, 7 ####[facility] LABCLIA [id number] [address] [address] [place] Bilirubin [Mass/Vol] 0.2 mg/dL Normal 0.2-1.3 [facility] Comment on above: Order Comment: Speci men Type: BLOOD SPECIMENOrdering Facility: [facility] Address: [address] [place] [address] Performed By: #### 3 016-3, 01705-3, 53818-9, 7 ####[facility] LABCLIA [id number] [facility] [place] [place] [address] [place] Calcium [Mass/Vol] 9.2 mg/dL Normal 8.5-10.2 [facility] Comment on above: Order Comment: Speci men Type: BLOOD SPECIMENOrdering Facility: [facility] Address: [address] [place] [address] Performed By: #### 3 016-3, 43230-5, 65246-5, 7 ####[facility] LABCLIA [id number] [place] [address] [place] Chloride [Moles/Vol] 107 mmol/L Normal 98-107 [facility] Comment on above: Order Comment: Speci men Type: BLOOD SPECIMENOrdering Facility: [facility] Address: [address] [place] [address] Performed By: #### 3 016-3, 42403-8, 54744-4, 7 ####[facility] LABCLIA [id number] [facility] [place] [address] [place] CO2 [Moles/Vol] 23 mmol/L Normal 22-[address] [facility] Comment on above: Order Comment: Speci men Type: BLOOD SPECIMENOrdering Facility: [facility] Address: [address] [place] [address] Performed By: #### 3 016-3, 97437-9, 78406-6, 7 ####[facility] LABCLIA [id number] [facility] [address] [address] [place] Creatinine [Mass/Vol] 0.94 mg/dL Normal 0.58-0.96 [facility] Comment on above: Order Comment: Chukc hernandez Type: BLOOD SPECIMENOrdering Facility: [facility] Address: [address] [id number] Performed By: #### 3 016-3, 19131-7, 00822-9, 3024-7 ####[facility] LABCLIA [id number] [address] [address] [place] Creatinine and Glomerular filtration rate.predicted panel (S/P/Bld) 70 mL/min/1.73m??? Normal >=[address] [facility] Comment on above: Order Comment: Chuck david Type: BLOOD SPECIMENOrdering Facility: [facility] Address: [address] [place] [address] Result Comment: Annabelle mated Glomerular Filtration Rate (eGFR) is calculated using the 2020 CKD-EPI creatinine equation. This equation utilizes serum creatinine, sex, and age as parameters. The creatinine assay has traceable calibration to isotope dilution-mass spectrometry. Refer to KDIGO guidelines for clinical interpretation. In patients with unstable renal function, e.g. those with acute kidney injury, the eGFR may not accurately reflect actual GFR. Performed By: #### 3 016-3, 20239-7, 32881-3, 3024-7 ####[facility] LABCLIA [id number] [address] [address] [place] Glucose [Mass/Vol] 92 mg/dL Normal 74-99 [facility] Comment on above: Order Comment: Chuck hernandez Type: BLOOD SPECIMENOrdering Facility: [facility] Address: [address] [place] [address] Result Comment: The [place] Diabetes Association (ADA) provides guidance for cutoff values for fasting glucose and random glucose. The ADA defines fasting as no caloric intake for at least 8 hours. Fasting plasma glucose results between 100 to 125 mg/dL indicate increased risk for diabetes (prediabetes). Fasting plasma glucose results greater than or equal to 126 mg/dL meet the criteria for diagnosis of diabetes. In the absence of unequivocal hyperglycemia, results should be confirmed by repeat testing. In a patient with classic symptoms of hyperglycemia or hyperglycemic crisis, random plasma glucose results greater than or equal to 200 mg/dL meet the criteria for diagnosis of diabetes. Reference: Standards of Medical Care in Diabetes 2016, [place] Diabetes Association. Diabetes Care. 2016.39(Suppl 1). Performed By: #### 3 016-3, 80470-7, 84270-5, 7 ####[facility] LABCLIA [id number] [address] [address] [place] Potassium [Moles/Vol] 4.5 mmol/L Normal 3.7-5.1 [facility] Comment on above: Order Comment: Speci men Type: BLOOD SPECIMENOrdering Facility: [facility] Address: [address] [place] [address] Performed By: #### 3 016-3, 97564-4, 71641-3, 3023-10 ####[facility] LABCLIA [id number] [place] [address] [place] Protein [Mass/Vol] 7.1 g/dL Normal 6.3-8.0 [facility] Comment on above: Order Comment: Speci men Type: BLOOD SPECIMENOrdering Facility: [facility] Address: [address] [place] [address] Performed By: #### 3 016-3, 74833-0, , 7 ####[facility] LABCLIA [id number] [place] [address] [place] Sodium [Moles/Vol] 143 mmol/L Normal 136-144 [facility] Comment on above: Order Comment: Speci men Type: BLOOD SPECIMENOrdering Facility: [facility] Address: [address] [place] [address] Performed By: #### 3 016-3, 87492-3, 11361-8, 7 ####[facility] LABCLIA [id number] [address] [address] [place] Urea nitrogen [Mass/Vol] 13 mg/dL Normal 7-[address] [facility] Comment on above: Order Comment: Chuck hernandez Type: BLOOD SPECIMENOrdering Facility: [facility] Address: [address] [place] [address] Performed By: #### 3 016-3, 37382-7, 77385-2, 3024-7 ####[facility] LABCLIA [id number] [place] [address] [place] HbA1c (Bld)on 01-23-2024 Average glucose Estimated from glycated hemoglobin (Bld) [Mass/Vol] 111 mg/dL Normal [facility] Comment on above: Order Comment: Chuck [facility] Type: BLOOD SPECIMENOrdering Facility: [facility] Address: [address] [place] [address] Result Comment: eAG: (Estimated average glucose) is a calculated value from HgbA1c and is housing management representative of the average blood glucose level in the last 2-3 month period. Performed By: #### 5 5454-3 ####[facility] LABIA [id number] [address] STATES OF [facility] HbA1c (Bld) [Mass fraction] 5.5 % Normal 4.3-5.[address] [facility] Comment on above: Order Comment: Chuck hernandez Type: BLOOD SPECIMENOrdering Facility: [facility] Address: [address] [place] [address] Result Comment: [place] Diabetes Association guidelines indicate that patients with HgbA1c in the range 5.7-6.4% are at increased risk for development of diabetes, and intervention by lifestyle modification may be beneficial. HgbA1c greater or equal to 6.5% is considered diagnostic of diabetes. Performed By: #### 5 5454-3 ####[facility] LABIA [id number] [place] [address] [place] Lipid 1996 panelon 4 Cholesterol [Mass/Vol] 223 mg/dL High <200 [facility] Comment on above: Order Comment: Chuck david Type: BLOOD SPECIMENOrdering Facility: [facility] Address: [address] [place] [address] Result Comment: <200 mg/dL, Desirable 200-239 mg/dL, Borderline high >239 mg/dL, High Performed By: #### 3 016-3, 97178-0, 00351-2, 3023-7 ####[facility] LABCLIA [id number] [address] [place] Cholesterol in HDL [Mass/Vol] 59 mg/dL Normal >[address] [facility] Comment on above: Order Comment: Speci men Type: BLOOD SPECIMENOrdering Facility: [facility] Address: [address] [place] [address] Result Comment: 40-5 9 mg/dL, Acceptable >59 mg/dL, High: Negative risk factor for coronary heart disease <40 mg/dL, Low: Positive risk factor for coronary heart disease Performed By: #### 3 016-3, 47886-1, 24041-5, 3023-7 ####[facility] LABCLIA [id number] [address] [place] Cholesterol in LDL [Mass/Vol] 142 mg/dL High <[address] [facility] Comment on above: Order Comment: Sallyi men Type: BLOOD SPECIMENOrdering Facility: [facility] Address: [address] [place] [address] Result Comment: <100 mg/dL, Optimal 100-129 mg/dL, Near optimal/above optimal 130-159 mg/dL, Borderline high 160-189 mg/dL, High >189 mg/dL, Very high Secondary prevention optimal LDL Cholesterol levels are recommended to be < 70 mg/dL Performed By: #### 3 016-3, 24508-2, 62671-6, 3023-7 ####[facility] LABCLIA [id number] [address] [place] Cholesterol in LDL/Cholesterol in HDL [Mass ratio] 2.41 {ratio} Normal <2.[address] [facility] Comment on above: Order Comment: Speci men Type: BLOOD SPECIMENOrdering Facility: [facility] Address: [address] [place] [address] Result Comment: Venu balbuena: 1. National Cholesterol Education Program ATP III Guideline At-A-Glance Quick Desk Reference: National Heart, Lung, and Blood [place]. National Institutes of Health. 2001: NIH Publication No. 01-3305. 2. An International Atherosclerosis Society position paper: global recommendations for the management of dyslipidemia: executive summary, Atherosclerosis. 2014: 232(2):410-413. Performed By: #### 3 016-3, 68579-2, 78812-5, 3023- ####[facility] LABCLIA [id number] [place] [address] [place] Cholesterol in VLDL [Mass/Vol] 22 mg/dL Normal <[address] [facility] Comment on above: Order Comment: Speci men Type: BLOOD SPECIMENOrdering Facility: [facility] Address: [address] [place] [address] Performed By: #### 3 016-3, 11998-4, 47607-8, 3023-10 ####[facility] LABCLIA [id number] [place] [address] [place] Cholesterol non HDL [Mass/Vol] 164 mg/dL High <[address] [facility] Comment on above: Order Comment: Speci men Type: BLOOD SPECIMENOrdering Facility: [facility] Address: [address] [place] [address] Result Comment: <130 mg/dL, Optimal 130-159 mg/dL, Near optimal/above optimal 160-189 mg/dL, Borderline high 190-219 mg/dL, High >219 mg/dL, Very high Secondary prevention optimal non HDL Cholesterol levels are recommended to be <100 mg/dL Performed By: #### 3 016-3, 56398-5, 72878-8, 3023-7 ####[facility] LABCLIA [id number] [place] [address] [place] Cholesterol.total/Choles terol in HDL [Mass ratio] 3.78 {ratio} Normal <5.[address] [facility] Comment on above: Order Comment: Speci men Type: BLOOD SPECIMENOrdering Facility: [facility] Address: [address] [place] [address] Performed By: #### 3 016-3, 29728-8, , 3023-10 ####[facility] LABCLIA [id number] [place] [address] [place] FASTING TIME 12 hrs Normal [facility] Comment on above: Order Comment: Speci men Type: BLOOD SPECIMENOrdering Facility: [facility] Address: [address] [place] [address] Performed By: #### 3 016-3, 77246-6, , 3023-10 ####[facility] LABCLIA [id number] [place] [address] [place] Triglyceride [Mass/Vol] 110 mg/dL Normal <150 [facility] Comment on above: Order Comment: Speci men Type: BLOOD SPECIMENOrdering Facility: [facility] Address: [address] [place] [address] Result Comment: <150 mg/dL, Normal 150-199 mg/dL, Borderline high 200-499 mg/dL, High >499 mg/dL, Very high Performed By: #### 3 016-3, 77329-6, , 3023-10 ####[facility] LABCLIA [id number] [place] [address] [place] T4 Free SerPl-mCncon 024 Free T4 [Mass/Vol] 0.9 ng/dL Normal 0.9-1.7 [facility] Comment on above: Order Comment: Speci men Type: BLOOD SPECIMENOrdering Facility: [facility] Address: [address] [place] [address] Performed By: #### 3 016-3, 93648-6, , 3023-10 ####[facility] LABCLIA [id number] [place] [address] [place] TSH SerPl-aCncon 01-23-2024 TSH Qn 7.990 m[IU]/L High 0.270-4.[address] [facility] Comment on above: Order Comment: Speci men Type: BLOOD SPECIMENOrdering Facility: [facility] Address: [address] [place] [address] Performed By: #### 3 016-3, 70921-8, 62248-8, 3024-7 ####[facility] LABCLIA [id number] [place] [address] [place] CBC W Auto Differential pane l (Bld)on 01-10-2023 Basophils (Bld) [#/Vol] 0.09 10*3/uL <0.11 k/uL [facility] Basophils/100 WBC (Bld) 1.1 % [facility] Differential cell count method Nom (Bld) Auto [facility] Eosinophils (Bld) [#/Vol] 0.25 10*3/uL <0.46 k/uL [facility] Eosinophils/100 WBC (Bld) 3.2 % [facility] Erythrocyte distribution width (RBC) [Ratio] 14.6 % 11.5 - 15.0 % [facility] Hematocrit (Bld) [Volume fraction] 44.0 % 36.0 - 46.0 % [facility] Hemoglobin (Bld) [Mass/Vol] 13.9 g/dL 11.5 - 15.5 g/dL [facility] Immature granulocytes (Bld) [#/Vol] 0.03 10*3/uL <0.10 k/uL [facility] Immature granulocytes/100 WBC (Bld) 0.4 % [facility] Lymphocytes (Bld) [#/Vol] 2.05 10*3/uL 1.00 - 4.00 k/uL [facility] Lymphocytes/100 WBC (Bld) 25.9 % [facility] MCH (RBC) [Entitic mass] 29.2 pg 26. 0 - 34.0 pg [facility] MCHC (RBC) [Mass/Vol] 31.6 g/dL 30.5 - 36.0 g/dL [facility] MCV (RBC) [Entitic vol] 92.4 fL 80.0 - 100.0 fL [facility] Monocytes (Bld) [#/Vol] 0.58 10*3/uL <0.87 k/uL [facility] Monocytes/100 WBC (Bld) 7.3 % [facility] Neutrophils (Bld) [#/Vol] 4.90 10*3/uL 1.45 - 7.50 k/uL [facility] Neutrophils/100 WBC (Bld) 62.1 % [facility] Nucleated RBC (Bld) [#/Vol] <0.01 k/uL [facility] Nucleated RBC/100 WBC (Bld) [Ratio] 0.0 /100 WBC [facility] Platelet mean volume (Bld) [Entitic vol] 9.8 fL 9.0 - 12.7 fL [facility] Platelets (Bld) [#/Vol] 329 10*3/uL 150 - 400 k/uL [facility] RBC (Bld) [#/Vol] 4.76 10*6/uL 3.90 - 5.2 0 m/uL [facility] WBC (Bld) [#/Vol] 7.90 10*3/uL 3.70 - 11. 00 k/uL [facility] XR Foot - left AP and Latera l and obliqueon 07-17-2022 IMPRESSION: No acute osseous abnormality. Other findings as described. Global Ceo: PSCB Transcribe Date/Time: Jul 17 2022 11:51A Dictated by : IRAM ZAMBRANO DO This examination was interpreted and the report reviewed and electronically signed by: IRAM ZAMBRANO DO on Jul 17 2022 11:54AM [facility] DIVISION OF RADIOLOGY * * *Final Report* * * DATE OF EXAM: Jul 12 2022 10:32AM WOX [id number] - XR FOOT 3V AP/LAT/OBL LT / PROCEDURE REASON: Foot pain, left * * * * Physician Interpretation * * * * EXAMINATION: XR FOOT 3V AP/LAT/OBL LT PATIENT/TECHNOLOGIST PROVIDED HISTORY: Left plantar midfoot and heel pain x months without injury CLINICAL INFORMATION: 57 years old Female with Foot pain, left TECHNIQUE: XR FOOT 3V AP/LAT/OBL LT Laterality: LEFT Number of different views (projections): 3 COMPARISON: None RESULT: No fracture. Mild 1st MTP osteoarthritis. Joint spaces are otherwise maintained. Hammertoe deformities. Posterior and plantar calcaneal spurs. DIVISION OF RADIOLOGY Provider, [facility] [place] - 07/17/2022 * * *Final Report* * * DATE OF EXAM: Jul 12 2022 10:32AM WOX [id number] - XR FOOT 3V AP/LAT/OBL LT / PROCEDURE REASON: Foot pain, left * * * * Physician Interpretation * * * * EXAMINATION: XR FOOT 3V AP/LAT/OBL LT PATIENT/TECHNOLOGIST PROVIDED HISTORY: Left plantar midfoot and heel pain x months without injury CLINICAL INFORMATION: 57 years old Female with Foot pain, left TECHNIQUE: XR FOOT 3V AP/LAT/OBL LT Laterality: LEFT Number of different views (projections): 3 COMPARISON: None RESULT: No fracture. Mild 1st MTP osteoarthritis. Joint spaces are otherwise maintained. Hammertoe deformities. Posterior and plantar calcaneal spurs. IMPRESSION IMPRESSION: No acute osseous abnormality. Other findings as described. Global Ceo: BRIE Transcribe Date/Time: Jul 17 2022 11:51A Dictated by : IRAM ZAMBRANO DO This examination was interpreted and the report reviewed and electronically signed by: IRAM ZAMBRANO DO on Jul 17 2022 11:54AM EST [facility] XR Foot - left AP and Latera l and obliqueOrdered By: [facility] on 07-17-2022 [facility] CHANG SCREENINGon 07-16-2022 [facility] XR Foot - left AP and Latera l and obliqueon 07-12-2022 Radiology Study observation (narrative) [facility] COVID 19, [facility](RT COLLECT )on 09-19-2020 SARS-CoV-2 (COVID-19) RNA BLAS+probe Ql (Unsp spec) Not detected Normal Not Detect [facility] Comment on above: Result Comment: Norm al Reference Range: Not Detected Method:(RT-PCR) real-time reverse transcriptase PCR [employer] Quantifind Instrument *The Food and Drug Administration (FDA) has issued an Emergency Use Authorization (EAU) for the Quantifind SARS-CoV-2 Assay for the rapid detection of the virus that causes COVID-19. This test has been validated, but the FDAs independent review of this validation is pending. *Negative results do not preclude infection and should not be used as the sole basis for treatment or patient management. Optimum specimen types and timing for peak viral levels during infections caused by SARS-CoV-2 have not been determined. Collection of multiple specimens from the same patient may be necessary to detect the virus. The possibility of a false negative result should be considered if the patient has clinical presentation or has had recent exposure. Performed By: #### L [id number] #### [facility] [address] [place], [address] CORONAVIRUS 2019 BY PCRon CORONAVIRUS 2019,PCR NOT DETECTED Normal Not Detected [facility] Comment on above: Result Comment: . This assay is designed to detect the N, ORF1ab and/or S genes of SARS-CoV-2 via nucleic acid amplification. A Negative (NOT DETECTED) result does not preclude 2019-nCoV infection since the adequacy of sample collection and/or low viral burden may result in presence of viral nucleic acids below the clinical sensitivity of this test method. Negative (NOT DETECTED) result should not be used as the sole basis for treatment or other patient management decisions. Rather negative results should be combined with clinical observations, patient history, and epidemiological information to make patient management decisions. Fact sheet for providers: https://www.fda.gov/media/117877/download Fact sheet for patients: https://www.fda.gov/media/388527/download This test has received FDA Emergency Use Authorization (EUA) and has been verified by [facility] ([facility]). This test is only authorized for the duration of time that circumstances exist to justify the authorization of the emergency use of in vitro diagnostic tests for the detection of SARS-CoV-2 virus and/or diagnosis of COVID-19 infection under section 564(b)(1) of the Act, 21 U.S.C. 360bbb-3(b)(1), unless the authorization is terminated or revoked sooner. [facility] is certified under CLIA-88 as qualified to perform high complexity testing. Testing is performed in the [facility] laboratories located at [id number] [place] [address]. Performed By: #### C OV19 #### [facility] [id number] [place] [address]. [place] [address] CORONAVIRUS 2019 BY PCRon DATE OF SYMPTOM ONSET [[id number]]? [id number] [facility] Comment on above: Performed By: #### C OV19 #### [facility] [address] [place] [address] EMPLOYED IN HEALTHCARE? No Normal [facility] Comment on above: Performed By: #### C OV19 #### [facility] [address] [place] [address] FIRST COVID NASAL SWAB TEST? Yes [facility] Comment on above: Performed By: #### C OV19 #### [facility] [address] [place] [address] HOSPITALIZED (OR PLANNED TO BE ADMITTED)? Yes [facility] Comment on above: Performed By: #### C OV19 #### [facility] [address] [place] [address] ICU? No [facility] Comment on above: Performed By: #### C OV19 #### [facility] [address] [place] [address] ? No [facility] Comment on above: Performed By: #### C OV19 #### [facility] [address] [place] [address] RESIDENT IN CONGREGATE CARE SETTING? No [facility] Comment on above: Performed By: #### C OV19 #### [facility] [address] [place] [address] SYMPTOMATIC DEFINED BY [facility]? Yes [facility] Comment on above: Performed By: #### C OV19 #### [facility] [address] [place] [address] Lab Specimen Source Nasal, Nasopharyngeal [facility] Comment on above: Performed By: #### C OV19 #### [facility] [address] [place] [id number] Provider Note - ED v2on 02-19 Provider Note - ED v2 Provider Note - ED v2: Chart Review: HISTORY OF PRESENTING ILLNESS DAMIAN is a 55 year old Female and was seen by me at 03-Mar-2020 12:30. Triage Information: Most recent Vital Sign Value Date PAST MEDICAL HISTORY ATTESTATION: I have reviewed and confirmed nurse's/medic's notes for patient's medications, allergies, medical history, and surgical history ALLERGIES/INTOLERANC ES: No Known Allergies HEALTH HISTORY: No documented data. OUTPATIENT MEDICATIONS: Home Medications Review Status for Reconciliation: Complete Med Status: Patient Currently Takes Medications Drug Name: Trokendi XR 25 mg oral capsule, extended release Instructions: 1 cap(s) orally once a day Drug Name: gabapentin 100 mg oral capsule Instructions: 1 cap(s) orally 3 times a day Drug Name: Wellbutrin 75 mg oral tablet Instructions: 1 tab(s) orally 3 times a day SIGNIFICANT EVENTS: No documented data. SEPHORA OPERATIONS CONSULTANT: Is : no Is : no RESULTS/VITAL SIGNS VITAL SIGNS: T PRBP SpO2O2(LPM) %FiO2 Method 03-Mar-2020 12:31:[id number] /85 96 MEDICAL DECISION MAKING/ED COURSE MDM/ED COURSE: This note was generated with voice recognition software and may contain errors including spelling, grammar, syntax, and misrecognization of what was dictated Chief Complaint Flu symptoms History of Present Illness Patient presents with a one-day history of flulike symptoms including body aches, chills, diarrhea. 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 Patient states she was unaware this during her care of them. Patient denies use of any ovbu-apq-noegqnu medications at home prior to arrival for symptom management. Only time his major symptoms worse, nothing makes it better. Review of Systems 10 systems reviewed negative with exception of history of present illness listed above Physical Examination General: Alert and oriented, No acute distress. Eye: Pupils are equal, round and reactive. HENT: Normocephalic Neck: Supple Respiratory: Respirations are non-labored, Symmetrical chest wall expansion Gastrointestinal: Soft, non-tender, non-distended Musculoskeletal: Normal range of motion, normal strength, no tenderness, no swelling. Integumentary: [place], warm, dry, and Intact. Neurologic: Alert, Oriented, Normal sensory, Normal motor function. Cognition and Speech: Oriented, Speech clear and coherent. Psychiatric: Cooperative, Appropriate mood & affect. Impression and Plan Course: Worsening Plan: Patient will be tested for the novel coronavirus and instructed to self isolate until a negative test result is returned. Patient agrees a plan of care, questions are encouraged and answered. Patient Instructions: Coronavirus CLINICAL IMPRESSION Diagnosis/Annotation : ED Dx Name:Viral gastroenteritis Code:A08.4 Disposition: discharged Type: home ATTESTATION CRITICAL CARE TIME Is this a critically ill patient: no Electronic Signatures: Quan Gale (JAPANESE INTERPRETER-TREE WORKER) (Signed 03-Mar-2020 12:58) Authored: HPI, PMH, PE, Results/Vital Signs, MDM/ED Course, Clinical Impression, Attestation, Chart Review, Scores Last Updated: 03-Mar-2020 12:58 by Quan Gale (JAPANESE INTERPRETER-TREE WORKER) Normal [facility] NOVEL CORONAVIRUS (COVID-19) on 10-12-2019 SARS-COV-2 Not Detected Normal Not Detected [facility] [employer] [facility] Comment on above: Order Comment: This assay was performed by Nucleic Acid Amplification (BLAS) on the Aptima??? [place]??? System ([employer] [place], [place]) using Lift Manager Mediated Amplification (TMA) technology. This test was developed, and its performance characteristics determined by [facility] [employer]. The Aptima??? SARS-CoV-2 assay is for use only under Emergency Use Authorization (EUA) in the US laboratories certified under the Clinical Laboratory Improvement Amendments of 1988 (CLIA), 42 U.S.C. ???263a, to perform high complexity tests. Performed By: #### C OVID19 #### [facility] [address] [place] [address], [id number] Vital Signs Date Time Vital Sign Value Performing Clinician Mary Grace keller 12-23-2024 17:05-0400 Heart rate 61 /min Dr. Rogerio Millan MD Work Phone: [facility] 12-23-2024 17:05-0400 Respiratory rate 14 /min Dr. Rogerio Millan MD Work Phone: [facility] 12-23-2024 17:05-0400 SaO2% (BldA) [Mass fraction] 100 % Dr. Rogerio Millan MD Work Phone: [facility] 12-23-2024 16:45-0400 Diastolic blood pressure 70 mm[Hg] Dr. Rogerio Millan MD Work Phone: [facility] 12-23-2024 16:45-0400 Systolic blood pressure 139 mm[Hg] Dr. Rogerio Millan MD Work Phone: [facility] 12-23-2024 13:16-0400 Body height 162.[address] Rogerio Millan MD Work Phone: [facility] 12-23-2024 13:16-0400 Body mass index (BMI) [Ratio] 34.9 kg/m2 Dr. Rogerio Millan MD Work Phone: [facility] 12-23-2024 13:16-0400 Body temperature 96.8 [degF] Dr. Rogerio Millan MD Work Phone: [facility] 12-23-2024 13:16-0400 Body weight 92.[address] Rogerio Millan MD Work Phone: [facility] 11-05-2024 14:42-0400 Body mass index (BMI) [Ratio] 36.66 kg/m2 Rogerio Millan MD Work Phone: [facility] 11-05-2024 14:42-0400 Body weight 88.09 kg Rogerio Millan MD Work Phone: [facility] 11-05-2024 14:42-0400 Diastolic blood pressure 74 mm[Hg] Rogerio Millan MD Work Phone: [facility] 11-05-2024 14:42-0400 Heart rate 64 /min Rogerio Millan MD Work Phone: [facility] 11-05-2024 14:42-0400 SaO2% (BldA) [Mass fraction] 98 % Rogerio Millan MD Work Phone: [facility] 11-05-2024 14:42-0400 Systolic blood pressure 128 mm[Hg] Rogerio Millan MD Work Phone: [facility] 05-21-2024 08:07-0500 Body height 155 cm Rogerio Millan MD Work Phone: [facility] 05-21-2024 08:07-0500 Body mass index (BMI) [Ratio] 37.31 kg/m2 Rogerio Millan MD Work Phone: [facility] 05-21-2024 08:07-0500 Body weight 89.63 kg Rogerio Millan MD Work Phone: [facility] 05-21-2024 08:07-0500 Diastolic blood pressure 74 mm[Hg] Rogerio Millan MD Work Phone: [facility] 05-21-2024 08:07-0500 Heart rate 72 /min Rogerio Millan MD Work Phone: [facility] 05-21-2024 08:07-0500 Respiratory rate 18 /min Rogerio Millan MD Work Phone: [facility] 05-21-2024 08:07-0500 SaO2% (BldA) [Mass fraction] 96 % Rogerio Millan MD Work Phone: [facility] 05-21-2024 08:07-0500 Systolic blood pressure 126 mm[Hg] Rogerio Millan MD Work Phone: [facility] 01-23-2024 08:49-0400 Body mass index (BMI) [Ratio] 36 kg/m2 Rogerio Millan MD Work Phone: [facility] 01-23-2024 08:49-0400 Body weight 86.7 kg Rogerio Millan MD Work Phone: [facility] 01-23-2024 08:49-0400 Diastolic blood pressure 72 mm[Hg] Rogerio Millan MD Work Phone: [facility] 01-23-2024 08:49-0400 Heart rate 65 /min Rogerio Millan MD Work Phone: [facility] 01-23-2024 08:49-0400 SaO2% (BldA) [Mass fraction] 97 % Rogerio Millan MD Work Phone: [facility] 01-23-2024 08:49-0400 Systolic blood pressure 122 mm[Hg] Rogerio Millan MD Work Phone: [facility] 07-16-2023 08:38-0400 Body height 155.2 cm Rogerio Millan MD Work Phone: [facility] 07-16-2023 08:38-0400 Body temperature 97.9 [degF] Rogerio Millan MD Work Phone: [facility] 07-16-2023 08:38-0400 Body weight 87.09 kg Rogerio Millan MD Work Phone: [facility] 07-16-2023 08:38-0400 Diastolic blood pressure 78 mm[Hg] Rogerio Millan MD Work Phone: [facility] 07-16-2023 08:38-0400 Heart rate 60 /min Rogerio Millan MD Work Phone: [facility] 07-16-2023 08:38-0400 SaO2% (BldA) [Mass fraction] 97 % Rogerio Millan MD Work Phone: [facility] 07-16-2023 08:38-0400 Systolic blood pressure 128 mm[Hg] Rogerio Millan MD Work Phone: [facility] 01-10-2023 15:33-0400 Body weight 83.92 kg Rogerio Millan MD Work Phone: [facility] 01-10-2023 15:33-0400 Diastolic blood pressure 78 mm[Hg] Rogerio Millan MD Work Phone: [facility] 01-10-2023 15:33-0400 Heart rate 82 /min Rogerio Millan MD Work Phone: [facility] 01-10-2023 15:33-0400 Respiratory rate 16 /min Rogerio Millan MD Work Phone: [facility] 01-10-2023 15:33-0400 SaO2% (BldA) [Mass fraction] 98 % Rogerio Millan MD Work Phone: [facility] 01-10-2023 15:33-0400 Systolic blood pressure 130 mm[Hg] Rogerio Millan MD Work Phone: [facility] 07-12-2022 09:50-0400 Body weight 82.56 kg Rogerio Millan MD Work Phone: [facility] 07-12-2022 09:50-0400 Diastolic blood pressure 82 mm[Hg] Rogerio Millan MD Work Phone: [facility] 07-12-2022 09:50-0400 Heart rate 63 /min Rogerio Millan MD Work Phone: [facility] 07-12-2022 09:50-0400 SaO2% (BldA) [Mass fraction] 98 % Rogerio Millan MD Work Phone: [facility] 07-12-2022 09:50-0400 Systolic blood pressure 132 mm[Hg] Rogerio Millan MD Work Phone: [facility] 01-11-2022 08:14-0400 Body height 155.2 cm Rogerio Millan MD Work Phone: [facility] 01-11-2022 08:14-0400 Body weight 79.89 kg Rogerio Millan MD Work Phone: [facility] 01-11-2022 08:14-0400 Diastolic blood pressure 72 mm[Hg] Rogerio Millan MD Work Phone: [facility] 01-11-2022 08:14-0400 Heart rate 60 /min Rogerio Millan MD Work Phone: [facility] 01-11-2022 08:14-0400 Respiratory rate 16 /min Rogerio Millan MD Work Phone: [facility] 01-11-2022 08:14-0400 SaO2% (BldA) [Mass fraction] 97 % Rogerio Millan MD Work Phone: [facility] 01-11-2022 08:14-0400 Systolic blood pressure 110 mm[Hg] Rogerio Millan MD Work Phone: [facility] Encounters Encounter Date Encounter Type Care Provider Facility Start: 12-23-2024 End: 12-23-2024 Emergency department patient visit Dr. Rogerio Millan MD Work Phone: -Emergency Department Work Phone: Start: 11-19-2024 End: 11-19-2024 ambulatory [facility] Facility:[facility] Start: 11-05-2024 End: 11-05-2024 ambulatory [facility] Facility:[facility] Start: 11-05-2024 End: 11-05-2024 Patient encounter procedure Rogerio Millan MD Work Phone: [facility] [place] Comment on above: Primary hypertension (Primary Dx); Mixed hyperlipidemia; Subclinical hypothyroidism; Reactive depression; Class 2 obesity with body mass index (BMI) of 36.0 to 36.9 in adult, unspecified obesity type, unspecified whether serious comorbidity present; Migraine without aura and without status migrainosus, not intractable; Tremor, essential; Screening for colon cancer Refill Request; Erro neous encounter-disregard Start: 09-06-2024 End: 11-06-2024 Follow-up encounter Rogerio Millan MD Work Phone: [facility] [place] Start: 09-06-2024 ambulatory ROGERIO MINERO Facility:[facility] Start: 09-06-2024 End: 09-06-2024 Subsequent hospital visit by physician Screen Mammo [facility] Comment on above: Encounter for screen ing mammogram for breast cancer [Z12.31] Start: 08-27-2024 End: 08-27-2024 Refill Rogerio Millan MD Work Phone: [facility] [place] Comment on above: Refill Request Start: 08-24-2024 End: 09-24-2024 ambulatory Rogerio Millan MD Work Phone: [facility] [place] Start: 07-29-2024 End: 07-30-2024 Refill Rogerio Millan MD Work Phone: [facility] [place] Comment on above: Refill Request Start: 06-30-2024 End: 06-30-2024 ambulatory Rogerio Millan MD Work Phone: [facility] [place] Comment on above: Physical paperwork Start: 06-14-2024 End: 06-14-2024 Telephone encounter Rogerio Millan MD Work Phone: [facility] [place] Comment on above: Forms Start: 05-21-2024 End: 05-21-2024 ambulatory ROGERIO KYLER Facility:[facility] Start: 05-21-2024 Encounter for genera l adult medical examination without abnormal findings ROGERIO MILLAN [facility] Start: 05-21-2024 End: 05-21-2024 Patient encounter procedure Rogerio Millan MD Work Phone: [facility] [place] Comment on above: Well adult exam (Binta nanci Dx); Tremor, essential; Migraine without aura and without status migrainosus, not intractable; Primary hypertension; Mixed hyperlipidemia; Subclinical hypothyroidism; Reactive depression; Encounter for screening mammogram for malignant neoplasm of breast Start: 05-21-2024 End: 05-21-2024 Patient encounter status Rogerio Millan MD Work Phone: [facility] Start: 01-26-2024 End: 01-26-2024 Telephone encounter Rona Rodriguez APRN.CNP Work Phone: [facility] [place] Comment on above: Results Start: 01-23-2024 End: 01-23-2024 ambulatory ROGERIO MILLAN Facility:[facility] Start: 01-23-2024 End: 01-23-2024 Patient encounter procedure Rogerio Millan MD Work Phone: [facility] [place] Comment on above: Tremor, essential (P rimary Dx); Depression, unspecified depression type; Fibromyalgia; Primary hypertension; Mixed hyperlipidemia; Stage 3a chronic kidney disease (HCC); Subclinical hypothyroidism; Hyperglycemia; Class 2 obesity with body mass index (BMI) of 36.0 to 36.9 in adult, unspecified obesity type, unspecified whether serious comorbidity present Start: 08-03-2023 Refill Rogerio Millan MD Work Phone: [facility] [place] Comment on above: Refill Request Start: 07-28-2023 Documentation procedure Mammog ramos Coordinator [facility] Start: 07-28-2023 Letter encounter Mammography Coordinator [facility] Department Start: 07-25-2023 End: 07-25-2023 Subsequent hospital visit by physician Screen Mammo [facility] Comment on above: Encounter for screen ing mammogram for malignant neoplasm of breast [Z12.31] Start: 07-16-2023 End: 07-16-2023 Patient encounter procedure Rogerio Millan MD Work Phone: [facility] [place] Comment on above: URI, acute (Primary Dx); Migraine without aura and without status migrainosus, not intractable; Fibromyalgia; Primary hypertension; Stage 3a chronic kidney disease (HCC); Hyperglycemia; Subclinical hypothyroidism; Reactive depression; Class 2 obesity with body mass index (BMI) of 36.0 to 36.9 in adult, unspecified obesity type, unspecified whether serious comorbidity present; Encounter for screening mammogram for malignant neoplasm of breast Start: 01-13-2023 Telephone encounter Rogerio Millan MD Work Phone: [facility] [place] Comment on above: Results Start: 01-10-2023 End: 01-10-2023 Patient encounter procedure Rogerio Millan MD Work Phone: [facility] [place] Comment on above: Migraine without aur a and without status migrainosus, not intractable (Primary Dx); Primary hypertension; Stage 3a chronic kidney disease (HCC); Reactive depression; Subclinical hypothyroidism; Hyperglycemia; Depression, unspecified depression type; Fibromyalgia; Need for influenza vaccination Start: 08-14-2022 End: 08-14-2022 Patient encounter procedure Anuel Garcia Work Phone: Podiatry Comment on above: Plantar fasciitis of left foot (Primary Dx); Foot pain, left Start: 07-16-2022 Documentation procedure [facility]og ramos [facility] Start: 07-16-2022 Letter encounter Mammography Coordinator [facility] Department Start: 07-16-2022 End: 07-16-2022 Subsequent hospital visit by physician Screen Mammo [facility] Comment on above: Screening breast exa mination [Z12.39] Start: 07-12-2022 End: 07-12-2022 Subsequent hospital visit by physician Xr [facility] [place] Work Phone: Radiology Comment on above: Foot pain, left [M79 .672] Start: 07-12-2022 End: 07-12-2022 Patient encounter procedure Rogerio Millan MD Work Phone: [facility] [place] Comment on above: Migraine without aur a and without status migrainosus, not intractable (Primary Dx); Depression, unspecified depression type; Fibromyalgia; Hyperglycemia; Subclinical hypothyroidism; Stage 3a chronic kidney disease (HCC); Primary hypertension; Mixed hyperlipidemia; Foot pain, left; Screening breast examination Start: 04-04-2022 Refdavid Durham on [employer] Work Phone: [facility] [place] Comment on above: Refill Request Start: 01-11-2022 End: 01-11-2022 Patient encounter procedure Rogerio Millan MD Work Phone: [facility] [place] Comment on above: Well adult exam ([facility] Dx); Subclinical hypothyroidism; Hyperglycemia; Reactive depression; Stage 3a chronic kidney disease (HCC); Fibromyalgia; Screening for HIV (human immunodeficiency virus); Need for hepatitis C screening test; Need for vaccination; Screening for colon cancer; Screening breast examination; Pes planus of both feet; Foot pain, bilateral Start: 01-11-2022 End: 01-11-2022 Patient encounter status Rogerio Millan MD Work Phone: [facility] [place] Start: 11-19-2021 ambulatory [facility] Comment on above: Colorectal Cancer Sc reening Start: 09-28-2021 Belén Durham on [employer] Work Phone: [facility] [place] Comment on above: Refill Request Start: 10-12-2019 Patient encounter procedure UNKNOWN PROVIDER Facility:[facility] Procedures Date Procedure Procedure Detail Performing Clinician Start: 12-23-2024 X-ray of chest, PA a nd lateral views Dr. Rogerio Millan MD Work Phone: Start: 12-23-[address] Rogerio Millan MD Work Phone: Start: 09-06-2024 Screening digital br east tomosynthesis bi Rogerio Millan MD Work Phone: Start: 01-23-2024 Lipid 1996 panel - S yamileth or Plasma Rona Rodriguez JAPANESE INTERPRETER.TREE WORKER Work Phone: Start: 01-10-2023 INFLUENZA VACCINE, A GE 6 MO - 64 YR, QUADRIVALENT (AFLURIA, FLULAVAL, FLUZONE) Rogerio Millan MD Work Phone: Start: 07-16-2022 End: 07-16-2022 Mammography Rogerio Millan MD Work Phone: Start: 07-12-2022 Radex foot complete minimum 3 views Rogerio Millan MD Work Phone: Start: 01-15-2022 Lipid 1996 panel - S yamileth or Plasma Rogerio Millan MD Work Phone: Start: 05-18-2020 Mammography NA Villar PA-C Work Phone: Start: 12-18-2010 Colonoscopy NA Villar PA-C Work Phone: Plan of Treatment Date Care Activity Detail Author Start: 01-22-2029 Lipid panel Lipid Screening [facility] Start: 01-22-2027 [facility] Start: 01-15-2027 Lipid 1996 panel - Serum or Plasma Lipid Screening [facility] Start: 01-15-2027 Lipid panel Lipid Screening [facility] Start: 01-15-2027 LIPID SCREEN LIPID SCREEN [facility] Start: 01-24-2026 [facility] Start: 01-10-2026 [facility] Start: 11-21-2025 LIPID SCREEN LIPID SCREEN [facility] Start: 11-05-2025 Annual PCP Team Manager [facility] Disease Visit Annual PCP Team Chronic Disease Visit [facility] Start: 11-05-2025 Shingrix Vaccine (1 of 2) Shingrix Vaccine (1 of 2) [facility] Comment on above: Postponed from 01/12 (Declined at this time) Start: 11-05-2025 Urine microalbumin profile DTaP,Tdap,Td Vaccine (1 - Tdap) [facility] Comment on above: Postponed from 01/12 (Declined at this time) Start: 09-06-2025 Screening for malign ant neoplasm of breast Mammogram Screening [facility] Start: 07-12-2025 DIABETES SCREEN DIABETES SCREEN [facility] Start: 07-12-2025 Diabetes Screening Diabetes Screenin g [facility] Start: 05-21-2025 Annual PCP Team Manager [facility] Disease Visit Annual PCP Team Chronic Disease Visit [facility] Start: 05-21-2025 BP Controlled (<130/80) BP Controlle d (<130/80) [facility] Start: 05-18-2025 End: 05-18-2025 Patient encounter procedure 05/18/2025 3:20 PM EST Office Visit Family Claudio Trini [address] [place] [id number] Rogerio Millan MD [address] [place] [id number] 6 mo follow up Family Claudio Guptaoster Comment on above: 6 mo follow up Start: 05-08-2025 End: 08-07-2025 CBC W Auto Differential panel - Blood COMPLETE BLOOD COUNT AND DIFFERENTIAL Lab Routine Mixed hyperlipidemia Expected: 05/08/2025, Expires: 08/07/2025 [facility] Work Phone: Comment on above: Expected: 05/08/2025 , Expires: 08/07/2025 Start: 05-08-2025 End: 08-07-2025 Comprehensive metabolic 2000 panel - Serum or Plasma COMPREHENSIVE METABOLIC PANEL Lab Routine Mixed hyperlipidemia Expected: 05/08/2025, Expires: 08/07/2025 [facility] Comment on above: Expected: 05/08/2025 , Expires: 08/07/2025 Start: 05-08-2025 End: 08-07-2025 Lipid 1996 panel - Serum or Plasma LIPID PANEL, FASTING Lab Routine Mixed hyperlipidemia Subclinical hypothyroidism Expected: 05/08/2025, Expires: 08/07/2025 [facility] Comment on above: Expected: 05/08/2025 , Expires: 08/07/2025 Start: 05-08-2025 End: 08-07-2025 Thyrotropin [Units/volume] in Serum or Plasma THYROID STIMULATING HORMONE Lab Routine Subclinical hypothyroidism Expected: 05/08/2025, Expires: 08/07/2025 [facility] Comment on above: Expected: 05/08/2025 , Expires: 08/07/2025 Start: 01-24-2025 End: 04-25-2025 COLOGUARD COLOGUARD Lab Routine Screening for colon cancer Expected: 01/24/2025, Expires: 04/25/2025 [facility] Comment on above: Expected: 01/24/2025 , Expires: 04/25/2025 Start: 01-24-2025 COLOGUARD (FIT-DNA) COLOGUARD (FIT-D NA) [facility] Start: 01-24-2025 COLORECTAL CANCER SCREENING COLORECTAL CANCER SCREENING [facility] Start: 01-24-2025 Screening for malign ant neoplasm of colon [facility] Start: 01-22-2025 Annual PCP Team Manager [facility] Disease Visit Annual PCP Team Chronic Disease Visit [facility] Start: 01-22-2025 Anxiety Screening Anxiety Screening [facility] Comment on above: Postponed from 01/12 (Declined at this time) Start: 01-22-2025 BP Controlled (<130/80) BP Controlle d (<130/80) [facility] Start: 01-22-2025 Covid-19 Vaccine () Covid-19 Vaccine () [facility] Comment on above: Postponed from 12/20 (Declined at this time) Start: 01-22-2025 Creatinine measurement Serum Creatin ine [facility] Start: 01-15-2025 DIABETES SCREEN DIABETES SCREEN [facility] Start: 12-23-2024 [facility] Start: 12-23-2024 [facility] Start: 12-20-2024 Influenza vaccination Influenza Vacc ine (#1) [facility] Start: 11-26-2024 End: 11-26-2024 Patient encounter procedure 11/26/2024 3:20 PM EDT Office Visit Family Claudio Feliz [address] [place] [id number] Rogerio Millan MD [address] [place] [id number] 6 month follow up Family Claudio Fel[place] Comment on above: 6 month follow up Start: 11-19-2024 End: 11-19-2024 ambulatory 11/19/2024 8:30 AM EDT Results Only [facility] [address] [place] [id number] [facility] Start: 11-19-2024 End: 11-19-2024 ambulatory 11/19/2024 7:15 AM EDT Results Only [facility] [address] [place] [id number] [facility] Start: 11-18-2024 End: 02-17-2025 T4/FTI/T4U T4/FTI/T4U Lab Routine Subclinical hypothyroidism Expected: 11/18/2024, Expires: 02/17/2025 [facility] Comment on above: Expected: 11/18/2024 , Expires: 02/17/2025 Start: 11-18-2024 End: 02-17-2025 Thyrotropin [Units/volume] in Serum or Plasma THYROID STIMULATING HORMONE Lab Routine Subclinical hypothyroidism Expected: 11/18/2024, Expires: 02/17/2025 [facility] Work Phone: Comment on above: Expected: 11/18/2024 , Expires: 02/17/2025 Start: 09-06-2024 End: 09-06-2024 Patient encounter procedure 09/06/2024 9:50 AM EDT Appointment Mammogram [address] [place] [id number] Mammogram Start: 07-24-2024 Screening for malign ant neoplasm of breast Mammogram Screening [facility] Start: 07-23-2024 End: 07-23-2024 Patient encounter procedure 07/23/2024 3:20 PM EDT Office Visit Family Claudio [place] [address] [place] [id number] Rogerio Millan MD [address] [place] [id number] 6 month follow up Family Claudio [place] Comment on above: 6 month follow up Start: 07-15-2024 Annual PCP Team Manager [facility] Disease Visit Annual PCP Team Chronic Disease Visit [facility] Start: 07-15-2024 BP Controlled (<130/80) BP Controlle d (<130/80) [facility] Start: 07-15-2024 Covid-19 Vaccine () Covid-19 Vaccine () [facility] Comment on above: Postponed from 12/20 (Declined at this time) Start: 07-15-2024 Shingrix Vaccine (1 of 2) Shingrix Vaccine (1 of 2) [facility] Comment on above: Postponed from 01/12 (Declined at this time) Start: 07-15-2024 Urine microalbumin profile DTaP,Tdap,Td Vaccine (1 - Tdap) [facility] Comment on above: Postponed from 01/12 (Declined at this time) Start: 07-09-2024 End: 07-09-2024 Patient encounter procedure 07/09/2024 8:30 AM EDT Appointment Mammogram [address] [place] [address] Mammogram Start: 01-25-2024 Creatinine measurement Serum Creatin ine [facility] Start: 01-25-2024 Serum Creatinine Serum Creatinine [facility] Start: 01-23-2024 End: 01-23-2024 Patient encounter procedure 01/23/2024 8:40 AM EDT Office Visit Family Claudio [place] [address] [place] [address] Rogerio Millan MD [address] [place] [address] 6 Month follow up Family Claudio [place] Comment on above: 6 Month follow up Start: 01-16-2024 End: 04-16-2024 CBC W Auto Differential panel - Blood CBC + DIFF Lab Routine Primary hypertension Expected: 01/16/2024, Expires: 04/16/2024 [facility] Work Phone: Comment on above: Expected: 01/16/2024 , Expires: 04/16/2024 Start: 01-16-2024 End: 04-16-2024 Comprehensive metabolic 2000 panel - Serum or Plasma COMP METABOLIC PANEL Lab Routine Primary hypertension Expected: 01/16/2024, Expires: 04/16/2024 [facility] Work Phone: Comment on above: Expected: 01/16/2024 , Expires: 04/16/2024 Start: 01-16-2024 End: 04-16-2024 Hemoglobin A1c in Blood HGB A1C Lab Routine Hyperglycemia Expected: 01/16/2024, Expires: 04/16/2024 [facility] Work Phone: Comment on above: Expected: 01/16/2024 , Expires: 04/16/2024 Start: 01-16-2024 End: 04-16-2024 Lipid 1996 panel - Serum or Plasma LIPID PANEL BASIC Lab Routine Primary hypertension Expected: 01/16/2024, Expires: 04/16/2024 [facility] Work Phone: Comment on above: Expected: 01/16/2024 , Expires: 04/16/2024 Start: 01-16-2024 End: 04-16-2024 Thyrotropin [Units/volume] in Serum or Plasma TSH BLD Lab Routine Subclinical hypothyroidism Expected: 01/16/2024, Expires: 04/16/2024 [facility] Work Phone: Comment on above: Expected: 01/16/2024 , Expires: 04/16/2024 Start: 01-11-2024 Annual PCP Team Manager Center [facility] Disease Visit Annual PCP Team Chronic Disease Visit [facility] Start: 01-11-2024 Hemoglobin/Hematocrit Hemoglobin/Hem atocrit [facility] Start: 01-11-2024 Serum Creatinine Serum Creatinine [facility] Start: 12-21-2023 Covid-19 Vaccine ( season) Covid-19 Vaccine () [facility] Start: 11-22-2023 DIABETES SCREEN DIABETES SCREEN [facility] Start: 07-17-2023 Mammography [facility] Start: 07-17-2023 Screening for malign ant neoplasm of breast Mammogram Screening [facility] Start: 07-13-2023 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 DISEASE VISIT ANNUAL PCP TEAM CHRONIC DISEASE VISIT [facility] Start: 07-13-2023 COVID-19 VACCINE (#1) COVID-19 VACCI NE (#1) [facility] Comment on above: Postponed from 07/12 (Declined at this time) Start: 07-13-2023 SERUM CREATININE SERUM CREATININE [facility] Start: 07-13-2023 SHINGRIX VACCINE (1 of 2) SHINGRIX VACCINE (1 of 2) [facility] Comment on above: Postponed from 01/12 (Declined at this time) Start: 07-13-2023 Urine microalbumin profile [facility] Comment on above: Postponed from 01/12 (Declined at this time) Start: 07-11-2023 End: 09-10-2023 Lipid 1996 panel - Serum or Plasma LIPID PANEL BASIC Lab Routine Subclinical hypothyroidism Expected: 07/11/2023, Expires: 09/10/2023 [facility] Work Phone: Comment on above: Expected: 07/11/2023 , Expires: 09/10/2023 Start: 01-15-2023 SERUM CREATININE SERUM CREATININE [facility] Start: 01-13-2023 End: 01-14-2024 Basic metabolic 2000 panel - Serum or Plasma BASIC METABOLIC PNL Lab Routine Renal insufficiency Expected: 01/13/2023, Expires: 01/14/2024 [facility] Work Phone: Comment on above: Expected: 01/13/2023 , Expires: 01/14/2024 Start: 01-13-2023 End: 03-15-2023 Urinalysis complete panel - Urine URINALYSIS, WITH MICROSCOPIC Lab Routine Renal insufficiency Expected: 01/13/2023, Expires: 03/15/2023 [facility] Work Phone: Comment on above: Expected: 01/13/2023 , Expires: 03/15/2023 Start: 01-11-2023 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 DISEASE VISIT ANNUAL PCP TEAM CHRONIC DISEASE VISIT [facility] Start: 01-11-2023 BP CONTROLLED (<130/80) BP CONTROLLE D (<130/80) [facility] Start: 01-10-2023 End: 03-12-2023 Comprehensive metabolic 2000 panel - Serum or Plasma [facility] Work Phone: Comment on above: Expected: 01/10/2023 , Expires: 03/12/2023 Start: 01-10-2023 End: 03-12-2023 Hemoglobin A1c in Blood [facility] Work Phone: Comment on above: Expected: 01/10/2023 , Expires: 03/12/2023 Start: 01-10-2023 End: 03-12-2023 Thyrotropin [Units/volume] in Serum or Plasma [facility] Work Phone: Comment on above: Expected: 01/10/2023 , Expires: 03/12/2023 Start: 07-12-2022 End: 09-11-2022 Basic metabolic 2000 panel - Serum or Plasma [facility] Work Phone: Comment on above: Expected: 07/12/2022 , Expires: 09/11/2022 Start: 07-12-2022 End: 09-11-2022 Thyrotropin [Units/volume] in Serum or Plasma [facility] Work Phone: Comment on above: Expected: 07/12/2022 , Expires: 09/11/2022 Start: 05-22-2022 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 DISEASE VISIT ANNUAL PCP TEAM CHRONIC DISEASE VISIT [facility] Start: 05-22-2022 BP CONTROLLED (<130/80) BP CONTROLLE D (<130/80) [facility] Start: 01-11-2022 End: 01-11-2023 CBC W Auto Differential panel - Blood CBC + DIFF Lab Routine Stage 3a chronic kidney disease (HCC) Expected: 01/11/2022, Expires: 01/11/2023 [facility] Work Phone: Comment on above: Expected: 01/11/2022 , Expires: 01/11/2023 Start: 01-11-2022 End: 01-11-2023 Comprehensive metabolic 2000 panel - Serum or Plasma COMP METABOLIC PANEL Lab Routine Stage 3a chronic kidney disease (HCC) Expected: 01/11/2022, Expires: 01/11/2023 [facility] Work Phone: Comment on above: Expected: 01/11/2022 , Expires: 01/11/2023 Start: 01-11-2022 End: 03-13-2022 Hemoglobin A1c in Blood HGB A1C Lab Routine Hyperglycemia Expected: 01/11/2022, Expires: 03/13/2022 [facility] Work Phone: Comment on above: Expected: 01/11/2022 , Expires: 03/13/2022 Start: 01-11-2022 End: 03-13-2022 Hepatitis C virus Ab [Presence] in Serum HEP C AB IA W/CONF SCRN Lab Routine Need for hepatitis C screening test Expected: 01/11/2022, Expires: 03/13/2022 [facility] Work Phone: Comment on above: Expected: 01/11/2022 , Expires: 03/13/2022 Start: 01-11-2022 End: 03-13-2022 HIV 1+2 Ab [Presence] in Serum or Plasma by Immunoassay HIV 1 2 COMBO(AG/AB),WITH REFLEX TO DIFFERENTIATION Lab Routine Screening for HIV (human immunodeficiency virus) Expected: 01/11/2022, Expires: 03/13/2022 [facility] Work Phone: Comment on above: Expected: 01/11/2022 , Expires: 03/13/2022 Start: 01-11-2022 End: 01-11-2023 Lipid 1996 panel - Serum or Plasma LIPID PANEL BASIC Lab Routine Subclinical hypothyroidism Expected: 01/11/2022, Expires: 01/11/2023 [facility] Work Phone: Comment on above: Expected: 01/11/2022 , Expires: 01/11/2023 Start: 01-11-2022 End: 03-13-2022 Thyrotropin [Units/volume] in Serum or Plasma TSH BLD Lab Routine Subclinical hypothyroidism Expected: 01/11/2022, Expires: 03/13/2022 [facility] Work Phone: Comment on above: Expected: 01/11/2022 , Expires: 03/13/2022 Start: 12-20-2021 Influenza vaccination INFLUENZA (#1) [facility] Start: 05-18-2021 Mammography MAMMOGRAM [facility] Start: 05-12-2021 SERUM CREATININE SERUM CREATININE [facility] Start: 04-26-2021 HEMOGLOBIN/HEMATOCRIT HEMOGLOBIN/HEM ATOCRIT [facility] Start: 12-18-2020 Colonoscopy COLONOSCOPY [facility] Start: 12-18-2020 COLORECTAL CANCER SCREENING COLORECTAL CANCER SCREENING [facility] Start: 01-13-2016 SHINGRIX VACCINE (1 of 2) SHINGRIX VACCINE (1 of 2) [facility] Start: 12-19-2011 Colonoscopy COLONOSCOPY [facility] Start: 12-19-2011 Screening for malign ant neoplasm of colon Colonoscopy [facility] Start: 12-14-2011 FECAL OCCULT BLOOD FECAL OCCULT BLOO D [facility] Start: 12-14-2011 Screening for malign ant neoplasm of colon Fecal Occult Blood [facility] Start: 2011 COLOGUARD (FIT-DNA) COLOGUARD (FIT-D NA) [facility] Start: [address] COLONOGRAPHY [facility] Start: 2011 Screening for malign ant neoplasm of colon [facility] Start: 2011 SIGMOIDOSCOPY SIGMOIDOSCOPY [facility] Start: 1985 Urine microalbumin profile [facility] Start: 01-13-1984 Anxiety Screening Anxiety Screening [facility] Start: 01-13-1984 BP CONTROLLED (<130/80) BP CONTROLLE D (<130/80) [facility] Start: 01-13-1984 HEPATITIS C SCREENING HEPATITIS C SC REENING [facility] Start: 01-13-1984 HIV SCREENING HIV SCREENING [facility] Start: 01-13-1972 PNEUMOCOCCAL (1 - PCV) PNEUMOCOCCAL (1 - PCV) [facility] Start: 1971 COVID-19 VACCINE (#1) COVID-19 VACCI NE (#1) [facility] Start: 1966 COVID-19 VACCINE (#1) COVID-19 VACCI NE (#1) [facility] Start: 1966 HEPATITIS B (1 of 3 - 3-dose series) HEPATITIS B (1 of 3 - 3-dose series) [facility] COLOGUARD COLOGUARD Lab Ro utine Screening for colon cancer Ordered: 01/11/2022 [facility] Work Phone: Comment on above: Ordered: 01/11/2022 COVID & INFLUENZA A/ B & RSV NAAT, ROUTINE COVID & INFLUENZA A/B & RSV NAAT, ROUTINE Microbiology Routine URI, acute 07/16/2023 9:14 AM EDT [facility] Work Phone: End: 08-11-2023 CHANG SCREENING CHANG SCREENING Radiology Routine Screening breast examination 1 Occurrences starting 07/12/2022 until 08/11/2023 [facility] Work Phone: Comment on above: 1 Occurrences starti ng 07/12/2022 until 08/11/2023 End: 08-14-2024 MG Breast Screening CHANG SCREENING Radiology Routine Encounter for screening mammogram for malignant neoplasm of breast 1 Occurrences starting 07/16/2023 until 08/14/2024 [facility] Work Phone: Comment on above: 1 Occurrences starti ng 07/16/2023 until 08/14/2024 MG Breast Screening CHANG SCREENIN G Radiology Routine Encounter for screening mammogram for malignant neoplasm of breast 07/25/2023 9:21 AM EDT [facility] Work Phone: End: 07-25-2024 MG Breast Screening CHANG SCREENING Radiology Routine Encounter for screening mammogram for malignant neoplasm of breast 1 Occurrences starting 05/21/2024 until 07/25/2024 [facility] Comment on above: 1 Occurrences starti ng 05/21/2024 until 07/25/2024 End: 02-10-2023 Screening mammography bi 2-view breast inc cad CHANG SCREENING Radiology Routine Screening breast examination 1 Occurrences starting 01/11/2022 until 02/10/2023 [facility] Work Phone: Comment on above: 1 Occurrences starti ng 01/11/2022 until 02/10/2023 Troponin T.cardiac [Mass/volume] in Serum or Plasma by High sensitivity method [facility] End: 02-10-2023 XR FOOT GENERAL 3V AP/LAT/OBL BILATERAL XR FOOT GENERAL 3V AP/LAT/OBL BILATERAL Radiology Routine Pes planus of both feet Foot pain, bilateral 1 Occurrences starting 01/11/2022 until 02/10/2023 [facility] Work Phone: Comment on above: 1 Occurrences starti ng 01/11/2022 until 02/10/2023 End: 08-11-2023 XR FOOT GENERAL 3V AP/LAT/OBL LEFT XR FOOT GENERAL 3V AP/LAT/OBL LEFT Radiology Routine Foot pain, left 1 Occurrences starting 07/12/2022 until 08/11/2023 [facility] Work Phone: Comment on above: 1 Occurrences starti ng 07/12/2022 until 08/11/2023 XR FOOT GENERAL 3V AP/LAT/OBL LEFT XR FOOT GENERAL 3V AP/LAT/OBL LEFT Radiology Routine Foot pain, left 07/12/2022 10:32 AM EDT [facility] Work Phone: [facility] Immunizations Immunization Date Immunization Notes Care Provider Christiano edouard 12-30-2023 influenza virus vaccine, unspecified formulation Rogerio Millan MD Work Phone: [facility] 12-30-2023 influenza, injectabl e, madin arturo canine kidney, preservative free Rogerio Millan MD Work Phone: [facility] 01-10-2023 influenza, injectabl e, quadrivalent, contains preservative Rogerio Millan MD Work Phone: [facility] 01-11-2022 pneumococcal (PCV20) vaccine, 20 valent (PREVNAR 20) Rogerio Millan MD Work Phone: [facility] 01-11-2022 pneumococcal Conjuga te, unspecified formulation Rogerio Millan MD Work Phone: [facility] Work Phone: 01-05-2022 influenza, injectabl e, quadrivalent, preservative free Rogerio Millan MD Work Phone: [facility] Work Phone: 01-05-2022 influenza, seasonal, injectable Rogerio Millan MD Work Phone: [facility] 01-11-2021 Influenza, injectabl e, Madin Fallentimber Canine Kidney, quadrivalent with preservative TERESA Villar PA-C Work Phone: [facility] 01-11-2021 influenza, injectabl e, quadrivalent, preservative free Rogerio Millan MD Work Phone: [facility] Work Phone: 02-05-2020 Influenza, injectabl e, Madin Fallentimber Canine Kidney, quadrivalent with preservative Rogerio Millan MD Work Phone: [facility] Work Phone: 12-21-2019 influenza, seasonal, injectable NA Villar PA-C Work Phone: [facility] 01-26-2018 influenza, injectabl e, quadrivalent, contains preservative NA Villar PA-C Work Phone: [facility] Work Phone: 12-31-2016 influenza, injectabl e, quadrivalent, contains preservative NA Villar PA-C Work Phone: [facility] 01-17-2015 influenza, seasonal, injectable NA Villar PA-C Work Phone: [facility] 01-23-2014 influenza, seasonal, injectable NA Villar PA-C Work Phone: [facility] 03-06-2009 novel [id number], preservative-free, injectable Rogerio Millan MD Work Phone: [facility] Work Phone: Payers Date Payer Category Payer [employer] BLUE CARD PPO OOS Member Subscriber Plan / Payer (Effective 2024-Present) Name: Leandro Damian Malinda Relation to Subscriber: Self Name: Damian Solomon Payer ID: [id number] (NAIC) Type: PPO Address: [place] [id number] 2024 Unknown [id number] 2022 Unknown [id number] 2018 Unknown 2018 Unknown SHEREE ROCHA PPO [id number] 2018-Present [phone] [id number] [place] [address] PPO [id number] 1966 Unknown [id number] Social History Date Type Detail Facility Start: 03-25-2014 End: 12-23-2024 Tobacco smoking status NHIS Smokes tobacco daily [facility] History of tobacco use Cigarette Smoker C [facility] Start: 03-25-2014 End: 03-26-2020 Cigarettes smoked current (pack per day) - Reported 0.5 [facility] Start: 03-25-2014 End: 01-23-2024 Tobacco use and exposure Smokeless tobacco non-user [facility] Start: 05-22-2021 End: 05-21-2024 Alcohol intake Current non-drinker of alcohol (finding) [facility] Start: 1965 Sex Assigned At Not on file C [facility] Start: 01-01-2022 End: 01-11-2022 Exposure to SARS-CoV-2 (event) Not sure [facility] Start: 07-12-2022 History SDOH Social Connections Phone 5 [facility] Start: 07-12-2022 History SDOH Social Connections Get Together 98 [facility] Start: 07-12-2022 History SDOH Social Connections Living 3 [facility] Start: 07-12-2022 History SDOH Stress 1 [facility] Start: 07-12-2022 History SDOH Transpo rt Med 2 [facility] Start: 03-26-2020 End: 07-12-2022 Social connection and isolation panel [facility] How often do you get together with friends or relatives? Patient refused [facility] [facility] Are you now , , , , never or living with a partner? [facility] Do you feel stress - tense, restless, nervous, or anxious, or unable to sleep at night because your mind is troubled all the time - these days [OSQ] Not at all [facility] (I/We) worried whechris er (my/our) food would run out before (I/we) got money to buy more. DK or Refused [facility] In the past 12 month s, was there a time when you were not able to pay the mortgage or rent on time? No [facility] How often to you hav e a drink containing alcohol? Never [facility] (I/We) worried akil er (my/our) food would run out before (I/we) got money to buy more. Never true [facility] Start: 1965 Sex Assigned At Female [facility] Functional Status Date Assessment Result Facility 11-04-2024 Total score [AUDIT-C] 0 11/05/19 5:46 AM EDT User, Bertat [facility] 11-04-2024 How often to you hav e a drink containing alcohol? Never 11/04/2024 5:46 AM EDT User, Kylahhart Never [facility] 11-04-2024 Functional status Patient does n ot drink 11/04/2024 5:46 AM EDT User, Dennis Patient does not drink [facility] 11-04-2024 How often do you hav e 6 or more drinks on 1 occasion? Never 11/04/2024 5:46 AM EDT User, Bertat Never [facility] 09-26-2014 Are you deaf, or do you have serious difficulty hearing No 09/26/2014 3:51 PM EDT Shola Frye LPN No [facility] 09-26-2014 Are you blind, or do you have serious difficulty seeing, even when wearing glasses No 09/26/2014 3:51 PM EDT Shola Frye LPN No [facility] 09-26-2014 Do you have serious difficulty walking or climbing stairs No 09/26/2014 3:51 PM EDT Shola Frye LPN No [facility] 09-26-2014 Do you have difficul ty dressing or bathing No 09/26/2014 3:51 PM EDT Shola Frye LPN No [facility] 09-26-2014 Because of a physica l, mental, or emotional condition, do you have difficulty doing errands alone such as visiting a physician's office or shopping No 09/26/2014 3:51 PM EDT Shola Frye LPN No [facility] Mental Status Date Assessment Result Facility 12-23-2024 Cognitive function Voice/Name [facility] Work Phone: 09-26-2014 Because of a physica l, mental, or emotional condition, do you have serious difficulty concentrating, remembering, or making decisions No 09/26/2014 3:51 PM EDT Shola Frye LPN No [facility] Clinical Notes 03-25-2014 to 12-23-2024 Note Date & Type Note Facility 12-23-2024 Discharge summary [facility] 12-23-2024 Radiology Diagnostic study note [facility] Imaging Services [address] [place] [id number] Chest PA and Lateral MR#: [id number] Acct: [id number] Name: DAMIAN SOLOMON Rep #: [id number] : 1965 F 59 From: Ingris Thomas MD PCP: Dr. Rogerio Millan MD Status: PRE E R Study:Chest PA and Lateral Date of Exam: 12/23/24 Exam# [id number] Ordering Dr: Kecia Aguirre DO PROCEDURE: CHEST PA AND LATERAL 12/23/2024 REASON FOR EXAM: CHEST PAIN TECHNIQUE: Procedure Code: RADCXR Modality: DX Procedure: CHEST PA AND LATERAL COMPARISON: None FINDINGS: Hardware: EKG leads Heart: Normal Mediastinum: No Lungs: The lungs are clear. Bones: Mild degenerative changes. Mild exaggeration of the thoracic kyphosis. Grade 1 anterolisthesis in the lower lumbar spine. RAD/Chest PA and Lateral IMPRESSION: No acute cardiopulmonary process Reading Location: [id number] CC: Dr. Alfredo Aguirre DO; Dr. Rogerio Millan MD ~ Global Ceo: Signed [facility] 12-23-2024 Discharge summary Note Date/Time December 23, 2024 5:48pm [facility] Medical Records Department [address] [place] [id number] Emergency Department Summary 12/23/24 MR#: [id number] Acct: [id number] Name: DAMIAN SOLOMON Rep #:[id number] : 1965 59 From: Alfredo Aguirre DO PCP: Dr. Rogerio Millan MD Status:REG E R Location: ED HPI History of Present Illness Chief Complaint: Chest Pain Narrative Narrative: Patient is a 59-year-old female who presented to the emergency department the chief complaint of chest pressure. States that yesterday she developed chest pressure and has been constant. States that nothing makes this better or worse. Patient denies any recent travel history denies any history of blood clots. Patient notes that she has around her sick grandchild recently and has been complaining of upper respiratory symptoms as well. Patient states that she has not had a stress test in the outpatient setting. Patient states that she does smoke. PFSH PFS Home Medications ?Medication ?Instructions ?Recorded ?Last Taken ?Type bupropion HCl 300 mg 24 hr tablet, 300 mg PO DAILY Unknown History extended release escitalopram oxalate 20 mg tablet 20 mg PO DAILY 06/07 Unknown History etodolac 300 mg capsule 300 mg PO TIDCM ##30 6 Unknown Rx gabapentin 400 mg capsule 400 mg PO DAILY 06/07/15 Unk nown History gabapentin 800 mg tablet 800 mg PO QHS 06/07/15 Unkno wn History propranolol 10 mg tablet 10 mg PO TID PRN PRN UNKNOWN 06/07/15 Unknown History sumatriptan succinate 50 mg tablet 50 mg PO .X1 PRN Unknown History tizanidine 4 mg tablet (Zanaflex) 4 mg PO Q8H PRN PRN Muscle Spasm 06/07/15 Unknown History topiramate 50 mg tablet (Topamax) 50 mg PO BID 6 Unknown History albuterol sulfate 90 mcg/actuation 2 puff inhalation Q 6H PRN 12/23/24 Unknown Rx aerosol inhaler (Ventolin HFA) shortness of breath or wheezing #8.5 grams doxycycline hyclate 100 mg capsule 100 mg PO BID 5 day s #10 caps 12/23/24 Unknown Rx prednisone 50 mg tablet 50 mg PO DAILY 5 days #5 tab s 12/23/24 Unknown Rx Allergy/AdvReac Type Severity Reaction Status Date / Time No Known Allergies Allergy Verified 06/07/15 17:04 Social History Smoking Status: Current every day smoker tobacco type: cigarettes ROS ROS ED ROS Narrative Constitutional: Denies any fevers, chills, headaches Cardiovascular: Complains of chest pressure as noted above denies palpitations Respiratory: Complains of cough denies any shortness of breath or wheezing Abdomen: Denies abdominal pain nausea vomit diarrhea Neurological: Denies any numbness, weakness, tingling Musculoskeletal: Denies any back pain Skin: Denies any rashes or lesions EXAM Physical Exam Narrative Exam Narrative: General: Patient was lying in bed rest comfortably did not appear to be in acutedistress Head: Atraumatic, normocephalic Eyes: PERRL bilaterally, EOMI bilateral, no conjunctival injection noted Neck: Soft, supple, trachea midline Cardiovascular: Regular rate and rhythm Respiratory: Patient has end expiratory wheezing noted bilaterally Extremities: +5/5 strength noted in the bilateral lower extremity radial pulses +2/4 in the bilateral extremities, no pedal edema exam Neurological: Patient following commands as she was at [facility] years 2024 Skin: Warm, dry, tact no rashes or lesions noted Const Vital Signs: 12/23/24 13:16 12/23/24 13:20 12/23/24 13:52 Temperature 96.8 F L Temperature Source Temporal Pulse Rate 68 70 Respiratory Rate 12 15 Blood Pressure 144/87 H 146/83 H Blood Pressure Mean 106 104 Pulse Ox 97 95 Oxygen Delivery Method Room Air Room Air Room Air 12/23/24 15:08 12/23/24 16:45 12/23/24 17:05 Temperature Temperature Source Pulse Rate 55 L 56 L Respiratory Rate 14 16 Blood Pressure 140/96 H 139/70 H Blood Pressure Mean 110 93 Pulse Ox 97 99 100 Oxygen Delivery Method Room Air Room Air Room Air 12/23/24 17:05 Temperature Temperature Source Pulse Rate 61 Respiratory Rate 14 Blood Pressure Blood Pressure Mean Pulse Ox Oxygen Delivery Method MDM MDM MDM Narrative Medical decision making narrative: Patient is a 51-year-old female who presents to the emergency department chief complaint of chest discomfort. States that this pressure has been constant since yesterday and nothing makes this better or worse. On the differential diagnose includes but limited to ACS, pneumonia, pneumothorax, upper respiratoryinfection secondary viral etiology, COPD exacerbation. Once workup is obtained reviewed she will be reevaluated. Patient's CBC reviewed showed no evidence leukocytosis white blood count normal at 4.8, hemoglobin stable at 13, platelet count was noted to be 282. Patient sodium was 141, potassium normal 4.1, creatinine was 0.97. Patient's troponin was 7 with a delta troponin of 10 proBNP normal at 96. Patient's EKG showed sinus rhythm with a rate of [address] interval normal at 168. Patient chest x-ray reviewed by myself and by radiology which showed no acute cardiopulmonary processes. Patient was given 3 DuoNebs and Solu-Medrol. On reevaluation patient she is feeling better she would like to go home at this point time. Patient be given prescriptions for doxycycline as well as prednisone for the next 5 days. She will be given albuterol inhaler as well. She was vies follow-up with Dr. Powers send return with worsening symptoms or concerns. Given that she has not had a stress test in the outpatient setting she is also advised that she would have 1 of these is obtained as well. She is agreeable this plan as well as significant other at bedside all course concerns answered she was discharged home in stable condition. Lab Data Labs: Laboratory Results - last 24 hr 12/23/24 12/23/24 12:56 13:20 WBC 4.8 RBC 4.38 Hgb 13.0 Hct 38.9 MCV 88.8 MCH 29.7 MCHC 33.4 RDW Std Deviation 47.8 H RDW Coeff of Ho 14.7 H Plt Count 282 MPV 9.5 Immature Gran % (Auto) 0.200 Neut % (Auto) 58.0 Lymph % (Auto) 24.7 [place] % (Auto) 10.2 H Eos % (Auto) 5.0 Baso % (Auto) 1.9 H Absolute Neuts (auto) 2.8 Absolute Lymphs (auto) 1.19 Nucleated RBC % 0 Sodium 141 Potassium 4.1 Chloride 108 Carbon Dioxide 21.3 Anion Gap 12 BUN 12 Creatinine 0.97 Estim Creat Clear Calc 69.64 Est GFR (MDRD) Non-Af 68 BUN/Creatinine Ratio 12.0 Glucose 109 H Calcium 8.9 Troponin T High Sens 7 Troponin T Hi Sens 2 Hr 10 NT pro BNP II 96 Radiography Diagnostic Testing: Clinical Impression(s) from Imaging Studies Chest X-Ray 12/23/24 13:48 IMPRESSION: No acute cardiopulmonary process Reading Location: [id number] Discharge Plan Triage Chief Complaint: Chest Pain ED Provider: Alfredo Aguirre Dx/Rx/DC Orders Clinical Impression: COPD exacerbation, Chest pain, Viral upper respiratory infection Prescriptions: New albuterol sulfate [Ventolin HFA] 90 mcg/actuation HFA aerosol inhaler 2 puff inhalation Q6H PRN (Reason: shortness of breath or wheezing) Qty: 8.5 0RF prednisone 50 mg tablet 50 mg PO DAILY 5 Days Qty: 5 0RF doxycycline hyclate 100 mg capsule 100 mg PO BID 5 Days Qty: 10 0RF No Action tizanidine [Zanaflex] 4 MG tablet 4 mg PO Q8H PRN PRN (Reason: Muscle Spasm) gabapentin 400 MG capsule 400 mg PO DAILY sumatriptan succinate 50 MG tablet 50 mg PO .X1 PRN propranolol 10 MG tablet 10 mg PO TID PRN PRN (Reason: UNKNOWN) gabapentin 800 MG tablet 800 mg PO QHS escitalopram oxalate 20 MG tablet 20 mg PO DAILY bupropion HCl 300 MG tablet extended release 24 hr 300 mg PO DAILY topiramate [Topamax] 50 MG tablet 50 mg PO BID etodolac 300 MG capsule 300 mg PO TIDCM Qty: 30 0RF Rx Instructions: with food Primary Care Provider: Rogerio Millan Referrals: Rogerio Millan MD [Primary Care Provider] - Activity Restrictions/Additional Instructions: Follow-up your doctor in outpatient setting. To have your primary care physician order a stress test. Return with worsening symptoms or other concerns. Take antibiotics and steroids as prescribed. Use inhaler as prescribed. Print Language: Azeri Disposition Disposition: Home, Self Care What to do if you have Problems For any increased pain, shortness of breath, bleeding, nausea or vomiting, chestpain, or any unexpected problems, contact your Primary Care Provider. Call [facility] ([phone]) or report to the closest Emergency Room. Call 911 if necessary. 12/23/24 1417 <Electronically signed by Alfredo Aguirre DO> Cosigner Signature (if applicable): CC: Dr. Rogerio Millan MD ~ Signed ADDENDUM by Dr. Alfredo Aguirre DO on 12/23/24 at 1748 HEART Score for Major Cardiac Events from [employer] on 12/23/2024 All calculations should be rechecked by clinician prior to use RESULT SUMMARY: 2 points Low Score (0-3 points) Risk of MACE of 0.9-1.7%. INPUTS: History ?> 0 = Slightly suspicious EKG ?> 0 = Normal Age ?> 1 = 45-64 Risk factors ?> 1 = 1-2 risk factors Initial troponin ?> 0 = <=ormal limit 12/23/24 1748<Electronically signed by Alfredo Aguirre DO> Cosigner Signature (if applicable): cc: Dr. Rogerio Millan MD ~* Signed [facility] Work Phone: [phone] NoteHNO ID: [id number] Author: ROGERIO MILLAN MD Service: ? Author Type: Physician Type: Progress Notes Filed: 11/05/2024 15:11 Note Text: Damian Solomon is a 59-year-old female with a history of migraines, fibromyalgia, and hypothyroidism, presenting for a 6-month follow-up. HPI Migraine: - Experiencing monthly migraines due to delayed Topamax refills. - Delay in refills reportedly due to insurance issues with [employer]. - Considering discussing medication change with neurologist at next appointment in 2 weeks. - Denies seizures. - No side effects from Topamax. Hypothyroidism: - Last blood work in January showed borderline thyroid levels. - Scheduled for T4 and TSH blood work on November 19. - Denies hair loss or constipation. - Reports weight loss. Fibromyalgia: - Managed with gabapentin; reports good control of symptoms. Depression: - Managed with bupropion; reports occasional aggravation at work. - No major side effects from medication. - Reports good sleep. 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 - Trying to lose weight; lost 3 lbs since last visit. - No chest pain or dyspnea. - is retired. MEDICATIONS: Current Outpatient Medications Medication Sig buPROPion XL (WELLBUTRIN XL) 300 mg 24 hr tablet Take 1 tablet by mouth once daily. gabapentin (NEURONTIN) 400 mg capsule Take 1 capsule by mouth every morning and 2 capsules at bedtime. albuterol HFA (VENTOLIN HFA) 90 mcg/actuation inhaler Inhale 2 Puffs as instructed every 4 hours as needed for Wheezing/Shortness of Breath. topiramate XR (TROKENDI XR) 50 mg capsule Take 1 capsule by mouth once daily. No current facility-administered medications for this visit. ALLERGIES: ALLERGIES Allergen Reactions Lasix [Furosemide] Hives PAST MEDICAL HISTORY Diagnosis Date Arthritis back of head Depression Fibromyalgia Hemorrhage of gastrointestinal tract, unspecified Hemorrhage of rectum and anus Internal hemorrhoids without mention of complication Migraine Bavis Sleep deprivation brain won't let her sleep Unspecified essential hypertension Vulvar cellulitis 08/25/2019 PAST SURGICAL HISTORY Procedure Laterality Date APPENDECTOMY 2008 COLONOSCOPY FLX DX W/COLLJ SPEC WHEN PFRMD 12/18/10 PAST SURGICAL HISTORY OF 2010 carpal tunnel left wrist TOTAL ABDOMINAL HYSTERECT W/WO RMVL TUBE OVARY 2010 Hysterectomy, [place] FAMILY HISTORY Problem Relation Age of Onset Heart Father Diabetes Mother Asthma Mother Social History Tobacco Use Smoking status: Every Day Current packs/day: 0.50 Types: Cigarettes Smokeless tobacco: Never Vaping Use Vaping status: Never Used Substance Use Topics Alcohol use: No Drug use: No Reviewed current medications, allergies, past medical history, surgical history, family history and social history today. REVIEW OF SYSTEMS Constitutional: (+) weight loss, (-) insomnia Head: (+) headaches Cardiovascular: (-) chest pain Respiratory: (-) shortness of breath Gastrointestinal: (-) constipation, (-) abdominal pain Skin: (+) varicose veins, (-) alopecia Psychiatric: (+) irritability HEALTH MAINTENANCE: Reviewed health maintenance issues today and recommended the following in detail. Colorectal Cancer Screening due on 01/24/2025 LAB REVIEWED: Labs: - (January) T4 and TSH: Borderline results VITALS: BP 128/74 Pulse 64 Wt 88.1 kg (194 lb 3.2 oz) SpO2 98% BMI 36.66 kg/m? Last 4 Encounter Wt Readings: Date: Wt: 11/05/2024 88.1 kg (194 lb 3.2 oz) 05/21/2024 89.6 kg (197 lb 9.6 oz) 01/23/2024 86.7 kg (191 lb 2.2 oz) 07/16/2023 87.1 kg (192 lb) PHYSICAL EXAMINATION: GENERAL: NAD, alert and oriented. SKIN: Unremarkable, no rash or skin lesions. HEAD: Normocephalic. NECK: Supple, no lymphadenopathy, normal thyroid, no carotid bruits. LUNGS: Clear to auscultation bilaterally, no wheezes/rhonchi/rales. HEART: Regular rate and rhythm, no murmurs. No ectopy. EXTREMITIES: Normal, no deformities, no skin discoloration, no edema. ABDOMEN: Soft, non-tender. NEURO: Awake, alert and oriented x3, cranial nerves II-XII grossly intact, normal gait, no involuntary motions. ASSESSMENT AND PLAN 1. Primary hypertension (I10) - Blood pressure well-controlled today. 2. Mixed hyperlipidemia (E78.2) - Ordered lipid panel to be performed in 6 months. 3. Subclinical hypothyroidism (E03.8) - Previous labs in January showed borderline thyroid function. - Upcoming T4 and TSH labs scheduled for November 19. - Will re-evaluate TSH in 6 months; medication initiation considered if TSH approaches 10. - No symptoms of hair loss or constipation reported. 4. Reactive depression (F32.9) - Mood stable on bupropion; no major side effects reported. - Continue current medication regimen. 5. Class 2 obesity with body mass index (BMI) of 36.0 to 36.9 in adult, unspecified obesity type, unspeci (more content not included)...[facility]07-18-2025 History of Present illness Narrative* Rogerio Millan MD - 11/05/2024 3:11 PM EDT Daiman Solomon is a 59-year-old female with a history of migraines, fibromyalgia, and hypothyroidism, presenting for a 6-month follow-up. HPI Migraine: - Experiencing monthly migraines due to delayed Topamax refills. - Delay in refills reportedly due to insurance issues with [employer]. - Considering discussing medication change with neurologist at next appointment in 2 weeks. - Denies seizures. - No side effects from Topamax. Hypothyroidism: - Last blood work in January showed borderline thyroid levels. - Scheduled for T4 and TSH blood work on November 19. - Denies hair loss or constipation. - Reports weight loss. Fibromyalgia: - Managed with gabapentin; reports good control of symptoms. Depression: - Managed with bupropion; reports occasional aggravation at work. - No major side effects from medication. - Reports good sleep. 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 - Trying to lose weight; lost 3 lbs since last visit. - No chest pain or dyspnea. - is retired. MEDICATIONS: Current Outpatient Medications Medication Sig buPROPion XL (WELLBUTRIN XL) 300 mg 24 hr tablet Take 1 tablet by mouth once daily. gabapentin (NEURONTIN) 400 mg capsule Take 1 capsule by mouth every morning and 2 capsules at bedtime. albuterol HFA (VENTOLIN HFA) 90 mcg/actuation inhaler Inhale 2 Puffs as instructed every 4 hours asneeded for Wheezing/Shortness of Breath. topiramate XR (TROKENDI XR) 50 mg capsule Take 1 capsule by mouth once daily. No current facility-administered medications for this visit. ALLERGIES: ALLERGIES Allergen Reactions Lasix [Furosemide] Hives PAST MEDICAL HISTORY Diagnosis Date Arthritis back of head Depression Fibromyalgia Hemorrhage of gastrointestinal tract, unspecified Hemorrhage of rectum and anus Internal hemorrhoids without mention of complication Migraine Bavis Sleep deprivation brain won't let her sleep Unspecified essential hypertension Vulvar cellulitis 08/25/2019 PAST SURGICAL HISTORY Procedure Laterality Date APPENDECTOMY 2008 COLONOSCOPY FLX DX W/COLLJ SPEC WHEN PFRMD 12/18/10 PAST SURGICAL HISTORY OF 2009 carpal tunnel left wrist TOTAL ABDOMINAL HYSTERECT W/WO RMVL TUBE OVARY 2010 Hysterectomy, [place] FAMILY HISTORY Problem Relation Age of Onset Heart Father Diabetes Mother Asthma Mother Social History Tobacco Use Smoking status: Every Day Current packs/day: 0.50 Types: Cigarettes Smokeless tobacco: Never Vaping Use Vaping status: Never Used Substance Use Topics Alcohol use: No Drug use: No Reviewed current medications, allergies, past medical history, surgical history, family history andsocial history today. REVIEW OF SYSTEMS Constitutional: (+) weight loss, (-) insomnia Head: (+) headaches Cardiovascular: (-) chest pain Respiratory: (-) shortness of breath Gastrointestinal: (-) constipation, (-) abdominal pain Skin: (+) varicose veins, (-) alopecia Psychiatric: (+) irritability HEALTH MAINTENANCE: Reviewed health maintenance issues today and recommended the following in detail. Colorectal Cancer Screening due on 01/24/2025 LAB REVIEWED: Labs: - (January) T4 and TSH: Borderline results VITALS: BP 128/74 Pulse 64 Wt 88.1 kg (194 lb 3.2 oz) SpO2 98% BMI 36.66 kg/m Last 4 Encounter Wt Readings: Date: Wt: 11/05/2024 88.1 kg (194 lb 3.2 oz) 05/21/2024 89.6 kg (197 lb 9.6 oz) 01/23/2024 86.7 kg (191 lb 2.2 oz) 07/16/2023 87.1 kg (192 lb) PHYSICAL EXAMINATION: GENERAL: NAD, alert and oriented. SKIN: Unremarkable, no rash or skin lesions. HEAD: Normocephalic. NECK: Supple, no lymphadenopathy, normal thyroid, no carotid bruits. LUNGS: Clear to auscultation bilaterally, no wheezes/rhonchi/rales. HEART: Regular rate and rhythm, no murmurs. No ectopy. EXTREMITIES: Normal, no deformities, no skin discoloration, no edema. ABDOMEN: Soft, non-tender. NEURO: Awake, alert and oriented x3, cranial nerves II-XII grossly intact, normal gait, no involuntary motions. ASSESSMENT AND PLAN 1. Primary hypertension (I10) - Blood pressure well-controlled today. 2. Mixed hyperlipidemia (E78.2) - Ordered lipid panel to be performed in 6 months. 3. Subclinical hypothyroidism (E03.8) - Previous labs in January showed borderline thyroid function. - Upcoming T4 and TSH labs scheduled for November 19. - Will re-evaluate TSH in 6 months; medication initiation considered if TSH approaches 10. - No symptoms of hair loss or constipation reported. 4. Reactive depression (F32.9) - Mood stable on bupropion; no major side effects reported. - Continue current medication regimen. 5. Class 2 obesity with body mass index (BMI) of 36.0 to 36.9 in adult, unspecified obesity type, unspecified whether serious comorbidity present (E66.812) - Weight decreased by 3 lbs since last visit. - Encouraged continued weight loss efforts. 6. Migraine without aura and without status migrainosus, not intractable (G43.009) - Headaches occurring monthly due to delayed availability of topiramate. - Discussed with neurologist about potential medication change. - Advised to explore alternative pharmacies or inquire about a 90-day supply with insurance. - Follow-up with neurologist in 2 weeks. 7. Tremor, essential (G25.0) - No issues reported. 8. Screening for colon cancer (Z12.11) - Ordered Cologuard test to be performed after January 24. (See patient after visit summary for additional instructions to patient) Rogerio Millan MD Recording using [employer] software for draft documentation of the visit was discussed with the patient/authorized housing management representative; all questions welcomed and answered. Patient/authorized housing management representative agreed to proceed [facility] Instructions* Patient Instructions* Rogerio Millan MD - 11/05/2024 3:11 PM EDT - Continue taking your topiramate (Topamax) as prescribed; do not let your supply run out to prevent headaches and seizures. - Keep taking bupropion as prescribed for mood support. - Continue your gabapentin for fibromyalgia-related pain. - Maintain your physical therapy exercises as recommended. - Go for blood tests on November 19 to check your thyroid hormones (T4 and TSH). - In about six months, have labs drawn for thyroid-stimulating hormone (TSH), cholesterol, and a complete blood count; orders have been placed. - Complete the [employer] colorectal cancer screening kit after January 24; the order has been sent. - For leg vein discomfort, consider wearing support stockings; maintaining a healthy weight can help manage varicose veins. - Consider updating your tetanus and shingles vaccines; check your insurance coverage for these. - Schedule a follow-up visit in six months to review your labs and overall health. documented in this encounterGe[facility]05-19-[facility]25 History of Present illness Narrative* Ayo Weeks Mammo Tech - 09/06/2024 9:50 AM EDT Radiology Service Progress Note PATIENT NAME: Damian Solomon DATE OF SERVICE: September 06, 2024 TIME: 10:34 AM PATIENT IDENTITY VERIFICATION COMPLETED USING TWO (2) IDENTIFIERS: Name and Date of confirmedby patient verbally. FALL SCREENING: Has the patient had 2 falls in the last year or 1 fall with injury or currently using an Ambulatory Assistive Device (Walker, Cane, Wheelchair, Crutches, etc.)? No PATIENT GENDER DATA: Assigned female at . status: : No status:NO. PATIENT RELEVANT IMPLANT DATA REVIEWED: Not Applicable PATIENT PRESENTS WITH AN IMPLANTABLE OR ATTACHED TANK SETTER: No RADIOLOGY DEPARTMENT: Mammography PERIPHERAL IV DATA: Not applicable SIGNED BY: Duglas Humphreys September 06, 2024 10:34 AM documented in this encounterGe[facility]05-19-2025 NoteHNO ID: [id number] Author: AYO WEEKS Mammo Tech Service: ? Author Type: Community Outreach Manager Type: Progress Notes Filed: 09/06/2024 10:34 Note Text: Radiology Service Progress Note PATIENT NAME: Damian Solomon DATE OF SERVICE: September 06, 2024 TIME: 10:34 AM PATIENT IDENTITY VERIFICATION COMPLETED USING TWO (2) IDENTIFIERS: Name and Date of confirmed by patient verbally. FALL SCREENING: Has the patient had 2 falls in the last year or 1 fall with injury or currently using an Ambulatory Assistive Device (Walker, Cane, Wheelchair, Crutches, etc.)? No PATIENT GENDER DATA: Assigned female at . status: : No status: NO. PATIENT RELEVANT IMPLANT DATA REVIEWED: Not Applicable PATIENT PRESENTS WITH AN IMPLANTABLE OR ATTACHED TANK SETTER: No RADIOLOGY DEPARTMENT: Mammography PERIPHERAL IV DATA: Not applicable SIGNED BY: Duglas Humphreys September 06, 2024 10:34 [facility]05-09-2025 Telephone encounter Note* Telephone Encounter - Monie Padron MA - 08/27/2024 11:23 AM EDT Prescription Refill Information The patient has been identified by name and date of : Yes Caregiver verified no other encounters exist for this prescription request: Yes Caregiver confirmed with patient/requestor that no other refills are due, in the near future, with this provider at this time: Yes The last office visit in the department: 05/21/24 Does the patient have a future office visit with this provider/department: Yes: 11/26/24 Dr Millan Requested Prescriptions Pending Prescriptions Disp Refills buPROPion XL (WELLBUTRIN XL) 300 mg 24 hr tablet 90 tablet 1 Sig: Take 1 tablet by mouth once daily. Monie Padron MA August 27, 2024 11:25 AM [facility]05-09-[facility]25 Miscellaneous Notes* Telephone Encounter - Monie Padron MA - 08/27/2024 11:23 AM EDT Prescription Refill Information The patient has been identified by name and date of : Yes Caregiver verified no other encounters exist for this prescription request: Yes Caregiver confirmed with patient/requestor that no other refills are due, in the near future, with this provider at this time: Yes The last office visit in the department: 05/21/24 Does the patient have a future office visit with this provider/department: Yes: 11/26/24 Dr Millan Requested Prescriptions Pending Prescriptions Disp Refills buPROPion XL (WELLBUTRIN XL) 300 mg 24 hr tablet 90 tablet 1 Sig: Take 1 tablet by mouth once daily. Monie Padron MA August 27, 2024 11:25 AM documented in this encounterGeorgetown [facility]05-06-2025 NotePatient Outreach (FAMPWS) DAMIAN SOLOMON ([id number]) 1965 F Date Time Provider Department 08/24/24 ROGERIO MILLAN FAMPWS During your visit today, we recorded the following information about you: Allergies As of Date: 08/24/2024 Noted Allergy Reaction LASIX (FUROSEMIDE) 06/07/2015 4 - Hives Date Reviewed: 05/21/2024 Reviewed by: Stephanie Damian OCCA - Fully Assessed Visit Diagnosis:Encounter for screening mammogram for breast cancer [Z12.31] Order(s):CHANG HUGGINS W LISSETH [[id number]] Order #: [id number] FUTURE Prescriptions as of 09/24/2024 - buPROPion XL (WELLBUTRIN XL) 300 mg 24 hr tablet Take 1 tablet by mouth once daily. - gabapentin (NEURONTIN) 400 mg capsule Take 1 capsule by mouth every morning and 2 capsules at bedtime. - albuterol HFA (VENTOLIN HFA) 90 mcg/actuation inhaler Inhale 2 Puffs as instructed every 4 hours as needed for Wheezing/Shortness of Breath. - topiramate XR (TROKENDI XR) 50 mg capsule Take 1 capsule by mouth once daily. Problem List As Of Date 08/24/2024 Noted Resolved Rectal bleeding [K62.5] 12/13/2010 12/31/2016 Tremor, essential [G25.0] 03/25/2014 Migraine [G43.909] 03/25/2014 Fibromyalgia [M79.7] 03/25/2014 Hypertension [I10] 03/25/2014 Hypothyroid [E03.9] 03/25/2014 07/25/2016 Depressed [F32.A] 03/25/2014 Constitutional obesity [E66.89] 07/25/2016 07/16/2023 Mixed hyperlipidemia [E78.2] 07/31/2016 Subclinical hypothyroidism [E03.8] 06/23/2017 CKD (chronic kidney disease) stage 3, GFR 30-59*05/14/2020 05/21/2024 Hyperglycemia [R73.9] 11/24/2020 05/21/2024 Class 2 obesity with body mass index (BMI) of 3*01/23/2024 Encounter Status:Closed by RIMMA MADRIGAL on 09/24/24[facility] 07-30-2024 Telephone encounter Note* Telephone Encounter - Shola Frye LPN - 07/30/2024 9:03 AM EDT Prescription Refill Information The patient has been identified by name and date of : Yes Caregiver verified no other encounters exist for this prescription request: Yes Caregiver confirmed with patient/requestor that no other refills are due, in the near future, with this provider at this time: Yes The last office visit in the department: 05/21/24 Does the patient have a future office visit with this provider/department: Yes Requested Prescriptions Pending Prescriptions Disp Refills gabapentin (NEURONTIN) 400 mg capsule 270 capsule 1 Sig: Take 1 capsule by mouth every morning and 2 capsules at bedtime. Shola Frye LPN July 30, 2024 9:05 AM [facility]04-11-2025 Miscellaneous Notes* Telephone Encounter - Shola Frye LPN - 07/30/2024 9:03 AM EDT Prescription Refill Information The patient has been identified by name and date of : Yes Caregiver verified no other encounters exist for this prescription request: Yes Caregiver confirmed with patient/requestor that no other refills are due, in the near future, with this provider at this time: Yes The last office visit in the department: 05/21/24 Does the patient have a future office visit with this provider/department: Yes Requested Prescriptions Pending Prescriptions Disp Refills gabapentin (NEURONTIN) 400 mg capsule 270 capsule 1 Sig: Take 1 capsule by mouth every morning and 2 capsules at bedtime. Shola Frye LPN July 30, 2024 9:05 AM documented in this encounterGe[facility]03-12-2025 Telephone encounter Note * Telephone Encounter - Luciana Sánchez LPN - 06/30/2024 3:46 PM EDT Patient calling asking if PCP could get completed before the end of this month or she will be paying higher monthly insurance premium. [facility]03-12-[facility] Miscellaneous Notes* Telephone Encounter - Luciana Sánchez LPN - 06/30/2024 3:46 PM EDT Patient calling asking if PCP could get completed before the end of this month or she will be paying higher monthly insurance premium. documented in this encounterGe[facility]02-24-2025 Telephone encounter Note * Telephone Encounter - Shola Frye LPN - 06/14/2024 6:25 PM EST Completed. [facility]-24-[facility]25 Miscellaneous Notes* Telephone Encounter - Shola Frye LPN - 06/14/2024 6:25 PM EST Completed. * Telephone Encounter - Rogerio Millan MD - 06/14/2024 5:56 PM EST done * Telephone Encounter - Monie Padron MA - 06/14/2024 5:02 PM EST Type of form: Physical Attestation Form Form received via walk in When form is completed, Fax form to [facility] [employer] [phone] Form has been forwarded to Physician Desk: Dr. Kyler Padron MA documented in this encounterGeorgetown [facility]al Hospital02-24-2025 Telephone encounter Note * Telephone Encounter - Rogerio Millan MD - 06/14/2024 5:56 PM EST done [facility] Telephone encounter Note* Telephone Encounter - Monie Padron MA - 06/14/2024 5:02 PM EST Type of form: Physical Attestation Form Form received via walk in When form is completed, Fax form to [facility] [employer] [phone] Form has been forwarded to Physician Desk: Dr. Kyler Padron MA [facility]01-31-2025 NoteHNO ID: [id number] Author: ROGERIO MILLAN MD Service: ? Author Type: Physician Type: Progress Notes Filed: 05/21/2024 08:28 Note Text: Patient presents with: Yearly Exam: Annual exam, also discuss labs HPI: Patient presents today for office visit for routine physical. NEURO: Sees [facility] in [place]. Hx of headaches. Continues on Topiramate daily. PSYCH: Moods are good. Continues on Wellbutrin daily. No side effects. FIBRO: Taking Gabapentin. Renal function had improved on last labs. Sugars were better No signs of hypothyroidism. Tsh is subclinical with normal t4. Latest Ref Rng 01/23/2024 WBC 3.70 - 11.00 k/uL 6.58 RBC 3.90 - 5.20 m/uL 4.69 Hemoglobin 11.5 - 15.5 g/dL 13.4 Hematocrit 36.0 - 46.0 % 42.7 MCV 80.0 - 100.0 fL 91.0 MCH 26.0 - 34.0 pg 28.6 MCHC 30.5 - 36.0 g/dL 31.4 RDW-CV 11.5 - 15.0 % 15.1 (H) Platelet Count 150 - 400 k/uL 317 MPV 9.0 - 12.7 fL 9.9 Neut% % 57.9 Abs Neut (ANC) 1.45 - 7.50 k/uL 3.82 Lymph% % 27.5 Abs Lymph 1.00 - 4.00 k/uL 1.81 [place]% % 8.7 Abs [place] <0.87 k/uL 0.57 Eosin% % 4.0 Abs Eosin <0.46 k/uL 0.26 Baso% % 1.4 Abs Baso <0.11 k/uL 0.09 Immature Gran % % 0.5 IMMATURE GRANS (ABS) <0.10 k/uL 0.03 NRBC /100 WBC 0.0 Absolute nRBC <0.01 k/uL <0.01 DTYPE Auto Protein, Total 6.3 - 8.0 g/dL 7.1 Albumin 3.9 - 4.9 g/dL 4.2 Calcium 8.5 - 10.2 mg/dL 9.2 Bilirubin, Total 0.2 - 1.3 mg/dL 0.2 Alkaline Phosphatase 34 - 123 U/L 98 AST 13 - 35 U/L 19 ALT 7 - 38 U/L 17 Glucose 74 - 99 mg/dL 92 BUN 7 - 21 mg/dL 13 Creatinine 0.58 - 0.96 mg/dL 0.94 Sodium 136 - 144 mmol/L 143 Potassium 3.7 - 5.1 mmol/L 4.5 Chloride 98 - 107 mmol/L 107 CO2 22 - 30 mmol/L 23 Anion Gap 8 - 15 mmol/L 13 eGFR >=60 mL/min/1.73m? 70 Cholesterol, Total <200 mg/dL 223 (H) Triglyceride <150 mg/dL 110 HDL Cholesterol >39 mg/dL 59 Non HDL Cholesterol <130 mg/dL 164 (H) Fasting Time hrs 12 VLDL Cholesterol <30 mg/dL 22 TC:HDL Ratio <5.10 3.78 LDL Cholesterol <100 mg/dL 142 (H) LDL:HDL Ratio <2.54 2.41 Hemoglobin A1C 4.3 - 5.6 % 5.5 Estimated Average Glucose mg/dL 111 TSH 0.270 - 4.200 mIU/L 7.990 (H) Free T4 0.9 - 1.7 ng/dL 0.9 MEDICATIONS: Current Outpatient Medications Medication Sig buPROPion XL (WELLBUTRIN XL) 300 mg 24 hr tablet Take 1 tablet by mouth once daily. gabapentin (NEURONTIN) 400 mg capsule Take 1 capsule by mouth every morning and 2 capsules at bedtime. albuterol HFA (VENTOLIN HFA) 90 mcg/actuation inhaler Inhale 2 Puffs as instructed every 4 hours as needed for Wheezing/Shortness of Breath. topiramate XR (TROKENDI XR) 50 mg capsule Take 1 capsule by mouth once daily. No current facility-administered medications for this visit. ALLERGIES: ALLERGIES Allergen Reactions Lasix [Furosemide] Hives PAST MEDICAL HISTORY Diagnosis Date Arthritis back of head Depression Fibromyalgia Hemorrhage of gastrointestinal tract, unspecified Hemorrhage of rectum and anus Internal hemorrhoids without mention of complication Migraine Bavis Sleep deprivation brain won't let her sleep Unspecified essential hypertension Vulvar cellulitis 08/25/2019 PAST SURGICAL HISTORY Procedure Laterality Date APPENDECTOMY 2008 COLONOSCOPY FLX DX W/COLLJ SPEC WHEN PFRMD 12/18/10 PAST SURGICAL HISTORY OF 2009 carpal tunnel left wrist TOTAL ABDOMINAL HYSTERECT W/WO RMVL TUBE OVARY 2010 Hysterectomy, [place] FAMILY HISTORY Problem Relation Age of Onset Heart Father Diabetes Mother Asthma Mother Social History Tobacco Use Smoking status: Every Day Current packs/day: 0.50 Types: Cigarettes Smokeless tobacco: Never Vaping Use Vaping status: Never Used Substance Use Topics Alcohol use: No Drug use: No Reviewed current medications, allergies, past medical history, surgical history, family history and social history today. 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 HEALTH MAINTENANCE: Reviewed health maintenance issues today and recommended the following in detail. Mammogram Screening due on 07/24/2024 VITALS: BP 126/74 (BP Site: Left Arm, BP Position: Sitting) Pulse 72 Resp 18 Ht 155 cm (5' 1.02) Wt 89.6 kg (197 lb 9.6 oz) SpO2 96% BMI 37.31 kg/m? Las (more content not included)...[facility]01-31-2025 History of Present illness Narrative* Rogerio Millan MD - 05/21/2024 8:02 AM EST Patient presents with: Yearly Exam: Annual exam, also discuss labs HPI: Patient presents today for office visit for routine physical. NEURO: Sees [facility] in [place]. Hx of headaches. Continues on Topiramate daily. PSYCH: Moods are good. Continues on Wellbutrin daily. No side effects. FIBRO: Taking Gabapentin. Renal function had improved on last labs. Sugars were better No signs of hypothyroidism. Tsh is subclinical with normal t4. Latest Ref Rng 01/23/2024 WBC 3.70 - 11.00 k/uL 6.58 RBC 3.90 - 5.20 m/uL 4.69 Hemoglobin 11.5 - 15.5 g/dL 13.4 Hematocrit 36.0 - 46.0 % 42.7 MCV 80.0 - 100.0 fL 91.0 MCH 26.0 - 34.0 pg 28.6 MCHC 30.5 - 36.0 g/dL 31.4 RDW-CV 11.5 - 15.0 % 15.1 (H) Platelet Count 150 - 400 k/uL 317 MPV 9.0 - 12.7 fL 9.9 Neut% % 57.9 Abs Neut (ANC) 1.45 - 7.50 k/uL 3.82 Lymph% % 27.5 Abs Lymph 1.00 - 4.00 k/uL 1.81 [place]% % 8.7 Abs [place] <0.87 k/uL 0.57 Eosin% % 4.0 Abs Eosin <0.46 k/uL 0.26 Baso% % 1.4 Abs Baso <0.11 k/uL 0.09 Immature Gran % % 0.5 IMMATURE GRANS (ABS) <0.10 k/uL 0.03 NRBC /100 WBC 0.0 Absolute nRBC <0.01 k/uL <0.01 DTYPE Auto Protein, Total 6.3 - 8.0 g/dL 7.1 Albumin 3.9 - 4.9 g/dL 4.2 Calcium 8.5 - 10.2 mg/dL 9.2 Bilirubin, Total 0.2 - 1.3 mg/dL 0.2 Alkaline Phosphatase 34 - 123 U/L 98 AST 13 - 35 U/L 19 ALT 7 - 38 U/L 17 Glucose 74 - 99 mg/dL 92 BUN 7 - 21 mg/dL 13 Creatinine 0.58 - 0.96 mg/dL 0.94 Sodium 136 - 144 mmol/L 143 Potassium 3.7 - 5.1 mmol/L 4.5 Chloride 98 - 107 mmol/L 107 CO2 22 - 30 mmol/L 23 Anion Gap 8 - 15 mmol/L 13 eGFR >=60 mL/min/1.73m 70 Cholesterol, Total <200 mg/dL 223 (H) Triglyceride <150 mg/dL 110 HDL Cholesterol >39 mg/dL 59 Non HDL Cholesterol <130 mg/dL 164 (H) Fasting Time hrs 12 VLDL Cholesterol <30 mg/dL 22 TC:HDL Ratio <5.10 3.78 LDL Cholesterol <100 mg/dL 142 (H) LDL:HDL Ratio <2.54 2.41 Hemoglobin A1C 4.3 - 5.6 % 5.5 Estimated Average Glucose mg/dL 111 TSH 0.270 - 4.200 mIU/L 7.990 (H) Free T4 0.9 - 1.7 ng/dL 0.9 MEDICATIONS: Current Outpatient Medications Medication Sig buPROPion XL (WELLBUTRIN XL) 300 mg 24 hr tablet Take 1 tablet by mouth once daily. gabapentin (NEURONTIN) 400 mg capsule Take 1 capsule by mouth every morning and 2 capsules at bedtime. albuterol HFA (VENTOLIN HFA) 90 mcg/actuation inhaler Inhale 2 Puffs as instructed every 4 hours asneeded for Wheezing/Shortness of Breath. topiramate XR (TROKENDI XR) 50 mg capsule Take 1 capsule by mouth once daily. No current facility-administered medications for this visit. ALLERGIES: ALLERGIES Allergen Reactions Lasix [Furosemide] Hives PAST MEDICAL HISTORY Diagnosis Date Arthritis back of head Depression Fibromyalgia Hemorrhage of gastrointestinal tract, unspecified Hemorrhage of rectum and anus Internal hemorrhoids without mention of complication Migraine Bavis Sleep deprivation brain won't let her sleep Unspecified essential hypertension Vulvar cellulitis 08/25/2019 PAST SURGICAL HISTORY Procedure Laterality Date APPENDECTOMY 2008 COLONOSCOPY FLX DX W/COLLJ SPEC WHEN PFRMD 12/18/10 PAST SURGICAL HISTORY OF 2010 carpal tunnel left wrist TOTAL ABDOMINAL HYSTERECT W/WO RMVL TUBE OVARY 2010 Hysterectomy, [place] FAMILY HISTORY Problem Relation Age of Onset Heart Father Diabetes Mother Asthma Mother Social History Tobacco Use Smoking status: Every Day Current packs/day: 0.50 Types: Cigarettes Smokeless tobacco: Never Vaping Use Vaping status: Never Used Substance Use Topics Alcohol use: No Drug use: No Reviewed current medications, allergies, past medical history, surgical history, family history andsocial history today. 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 HEALTH MAINTENANCE: Reviewed health maintenance issues today and recommended the following in detail. Mammogram Screening due on 07/24/2024 VITALS: BP 126/74 (BP Site: Left Arm, BP Position: Sitting) Pulse 72 Resp 18 Ht 155 cm (5' 1.02) Wt 89.6 kg (197 lb 9.6 oz) SpO2 96% BMI 37.31 kg/m Last 4 Encounter Wt Readings: Date: Wt: 01/23/2024 86.7 kg (191 lb 2.2 oz) 07/16/2023 87.1 kg (192 lb) 01/10/2023 83.9 kg (185 lb) 07/12/2022 82.6 kg (182 lb) PHYSICAL EXAMINATION: General appearance: Well appearing, alert, in no acute distress, well-hydrated, well nourished. Skin: Skin color, texture, turgor normal, no suspicious rashes or lesions Head: Normocephalic, no masses, lesions, tenderness or abnormalities Eyes: Anicteric sclera. Pupils are equally round and reactive to light. Extraocular movements are intact. Ears: External ears normal, canals clear Nose/Sinuses: Nares normal, septum midline, mucosa normal, no drainage or sinus tenderness Oropharynx: Lips, mucosa, and tongue normal, teeth and gums normal, oropharynx normal Neck: Supple, no adenopathy; thyroid symmetric, normal size, no bruits Lungs: Lungs clear to auscultation. No wheezing, rhonchi, rales Heart: RRR without murmur, gallop, or rubs. No ectopy Abdomen: Normal abdominal exam, Abdomen soft, non-tender. Bowel sounds normal. No masses, organomegaly Extremities: No deformities, edema, skin discoloration, clubbing or cyanosis. Good capillary refill. Musculoskeletal: No joint swelling, deformity, or tenderness Peripheral pulses: Normal Neuro: Gait normal. Reflexes normal and symmetric. Sensation grossly intact. Mild essential tremor of the head. ASSESSMENT/PLAN: 1. Well adult exam - ICD9: V70.0, ICD10: Z00.00 (primary diagnosis) - Counseled on healthy diet and regular exercise 2. Tremor, essential - ICD9: 333.1, ICD10: G25.0 - stable. 3. Migraine without aura and without status migrainosus, not intractable - ICD9: 346.10, ICD10: G43.009 - stable. Seeing neuro 4. Primary hypertension - ICD9: 401.9, ICD10: I10 - Controlled - Continue current medications 5. Mixed hyperlipidemia - ICD9: 272.2, ICD10: E78.2 - Controlled - Continue current medications 6. Subclinical hypothyroidism - ICD9: 244.8, ICD10: E03.8 - follow labs. - THYROID STIMULATING HORMONE - T4/FTI/T4U 7. Reactive depression - ICD9: 300.4, ICD10: F32.9 - doing well. 8. Encounter for screening mammogram for malignant neoplasm of breast - ICD9: V76.12, ICD10: Z12.31 - Follow up for annual exam in one year. - CHANG SCREENING Rogerio Millan MD RTO in six months or prn. documented in this encounterGe[facility]10-07-2024 Miscellaneous Notes* Telephone Encounter - Gisela Roy MA - 01/26/2024 4:19 PM EDT Pt notified of results via [facility]. Gisela Roy Ma * Telephone Encounter - Gisela Roy MA - 01/26/2024 4:18 PM EDT ----- Message from Rona Rodriguez sent at 01/26/2024 3:34 PM EDT ----- Although your TSH is elevated and can indicate hypothyroidism, your actual thyroid function was normal. No change needed. No diabetes. LDL cholesterol is a little high. Remember to follow a diet low in saturated fats by eliminating fried foods and choosing only lean meat/skim dairy products. documented in this encounterGe[facility]10-07-2024 Telephone encounter Note * Telephone Encounter - Gisela Roy MA - 01/26/2024 4:19 PM EDT Pt notified of results via [facility]. Gisela Roy Ma [facility]10-07-2024 Telephone encounter Note* Telephone Encounter - Gisela Roy MA - 01/26/2024 4:18 PM EDT ----- Message from Rona Rodriguez sent at 01/26/2024 3:34 PM EDT ----- Although your TSH is elevated and can indicate hypothyroidism, your actual thyroid function was normal. No change needed. No diabetes. LDL cholesterol is a little high. Remember to follow a diet low in saturated fats by eliminating fried foods and choosing only lean meat/skim dairy products. [facility] Telephone encounter Note* Telephone Encounter - Gisela Roy MA - 01/26/2024 1:34 PM EDT Spoke with Ruth Ann and she stated that this can be added. Gisela Roy MA [facility]10-07-2024 Miscellaneous Notes* Telephone Encounter - Gisela Roy MA - 01/26/2024 1:34 PM EDT Spoke with Ruth Ann and she stated that this can be added. Gisela Roy MA * Telephone Encounter - Roan Rodriguez APRN.CNP - 01/26/2024 1:25 PM EDT Please call labs and ask them to run a free T4. documented in this encounterGeorgetown [facility]10-07-2024 Telephone encounter Note * Telephone Encounter - Rona Rodriguez APRN.CNP - 01/26/2024 1:25 PM EDT Please call labs and ask them to run a free T4. [facility]10-04-2024 NoteHNO ID: [id number] Author: ROGERIO MILLAN MD Service: ? Author Type: Physician Type: Progress Notes Filed: 01/23/2024 09:00 Note Text: Patient presents with: 6 Month Exam HPI: Patient presents today for office visit for 6 month exam. FIBRO: Continues on Gabapentin 400 mg 1 capsule in the a.m 2 capsules qhs. Doing well on current dose. Feeling good. No side effects. NEURO: Follows with Neuro in [place] for headaches. Stable. Gets them usually more with stress. Continues on Topiramate 50 mg daily PSYCH: Current medication: Bupropion 300 mg daily No depression or anxiety. Feels current dose is working well. Tremor has been ok. Has fasting labs ordered already Bp is well controlled. MEDICATIONS: Current Outpatient Medications Medication Sig buPROPion XL (WELLBUTRIN XL) 300 mg 24 hr tablet Take 1 tablet by mouth once daily. gabapentin (NEURONTIN) 400 mg capsule Take 1 capsule by mouth every morning and 2 capsules at bedtime. albuterol HFA (VENTOLIN HFA) 90 mcg/actuation inhaler Inhale 2 Puffs as instructed every 4 hours as needed for Wheezing/Shortness of Breath. topiramate XR (TROKENDI XR) 50 mg capsule Take 1 capsule by mouth once daily. No current facility-administered medications for this visit. ALLERGIES: ALLERGIES Allergen Reactions Lasix [Furosemide] Hives PAST MEDICAL HISTORY Diagnosis Date Arthritis back of head Depression Fibromyalgia Hemorrhage of gastrointestinal tract, unspecified Hemorrhage of rectum and anus Internal hemorrhoids without mention of complication Migraine Bavis Sleep deprivation brain won't let her sleep Unspecified essential hypertension Vulvar cellulitis 08/25/2019 PAST SURGICAL HISTORY Procedure Laterality Date APPENDECTOMY 2009 COLONOSCOPY FLX DX W/COLLJ SPEC WHEN PFRMD 12/18/10 PAST SURGICAL HISTORY OF 2010 carpal tunnel left wrist TOTAL ABDOMINAL HYSTERECT W/WO RMVL TUBE OVARY 2010 Hysterectomy, [place] FAMILY HISTORY Problem Relation Age of Onset Heart Father Diabetes Mother Asthma Mother Social History Tobacco Use Smoking status: Every Day Current packs/day: 0.50 Types: Cigarettes Smokeless tobacco: Never Vaping Use Vaping status: Never Used Substance Use Topics Alcohol use: No Drug use: No Reviewed current medications, allergies, past medical history, surgical history, family history and social history today. REVIEW OF SYSTEMS Denies chest pain or shortness of breath. All other reviewed and negative other than HPI. HEALTH MAINTENANCE: Reviewed health maintenance issues today and recommended the following in detail. Anxiety Screening Never done Covid-19 Vaccine( season) Never done VITALS: BP 122/72 Pulse 65 Wt 86.7 kg (191 lb 2.2 oz) SpO2 97% BMI 36.00 kg/m? Last 4 Encounter Wt Readings: Date: Wt: 07/16/2023 87.1 kg (192 lb) 01/10/2023 83.9 kg (185 lb) 07/12/2022 82.6 kg (182 lb) 01/11/2022 79.9 kg (176 lb 1.9 oz) PHYSICAL EXAMINATION: General appearance: Well appearing, alert, in no acute distress, well-hydrated, well nourished. Skin: Skin color, texture, turgor normal, no suspicious rashes or lesions Head: Normocephalic, no masses, lesions, tenderness or abnormalities Lungs: Lungs clear to auscultation. No wheezing, rhonchi, rales Heart: RRR without murmur, gallop, or rubs. No ectopy Abdomen: Normal abdominal exam, Abdomen soft, non-tender. Bowel sounds normal. No masses, organomegaly Extremities: No deformities, edema, skin discoloration, clubbing or cyanosis. Good capillary refill. Musculoskeletal: No joint swelling, deformity, or tenderness ASSESSMENT/PLAN: 1. Tremor, essential - ICD9: 333.1, ICD10: G25.0 (primary diagnosis) - stable. 2. Depression, unspecified depression type - ICD9: 311, ICD10: F32.A - Continue current medications. Notify us if any difficulties are noted. - BUPROPION XL 300 MG 24 HR TAB 3. Fibromyalgia - ICD9: 729.1, ICD10: M79.7 - working well. - GABAPENTIN 400 MG CAPSULE 4. Primary hypertension - ICD9: 401.9, ICD10: I10 - Controlled - able to control without meds. 5. Mixed hyperlipidemia - ICD9: 272.2, ICD10: E78.2 - Control undetermined, due for labs - has labs ordered 6. Stage 3a chronic kidney disease (HCC) - ICD9: 585.3, ICD10: N18.31 - follow labs. 7. Subclinical hypothyroidism - ICD9: 244.8, ICD10: E03.8 - follow labs. 8. Hyperglycemia - ICD9: 790.29, ICD10: R73.9 - has ordered. 9. Class 2 obesity with body mass index (BMI) of 36.0 to 36.9 in adult, unspecified obesity type, unspecified whether serious comorbidity present - ICD9: 278.00, V85.36, ICD10: E66.812, Z68.36 - watch diet. Rogerio MATTSON in six months and prn.[facility]10-04-2024 History of Present illness Narrative* Rogerio Millan MD - 01/23/2024 8:47 AM EDT Patient presents with: 6 Month Exam HPI: Patient presents today for office visit for 6 month exam. FIBRO: Continues on Gabapentin 400 mg 1 capsule in the a.m 2 capsules qhs. Doing well on current dose. Feeling good. No side effects. NEURO: Follows with Neuro in [place] for headaches. Stable. Gets them usually more with stress. Continues on Topiramate 50 mg daily PSYCH: Current medication: Bupropion 300 mg daily No depression or anxiety. Feels current dose is working well. Tremor has been ok. Has fasting labs ordered already Bp is well controlled. MEDICATIONS: Current Outpatient Medications Medication Sig buPROPion XL (WELLBUTRIN XL) 300 mg 24 hr tablet Take 1 tablet by mouth once daily. gabapentin (NEURONTIN) 400 mg capsule Take 1 capsule by mouth every morning and 2 capsules at bedtime. albuterol HFA (VENTOLIN HFA) 90 mcg/actuation inhaler Inhale 2 Puffs as instructed every 4 hours asneeded for Wheezing/Shortness of Breath. topiramate XR (TROKENDI XR) 50 mg capsule Take 1 capsule by mouth once daily. No current facility-administered medications for this visit. ALLERGIES: ALLERGIES Allergen Reactions Lasix [Furosemide] Hives PAST MEDICAL HISTORY Diagnosis Date Arthritis back of head Depression Fibromyalgia Hemorrhage of gastrointestinal tract, unspecified Hemorrhage of rectum and anus Internal hemorrhoids without mention of complication Migraine Bavis Sleep deprivation brain won't let her sleep Unspecified essential hypertension Vulvar cellulitis 08/25/2019 PAST SURGICAL HISTORY Procedure Laterality Date APPENDECTOMY 2009 COLONOSCOPY FLX DX W/COLLJ SPEC WHEN PFRMD 12/18/10 PAST SURGICAL HISTORY OF 2010 carpal tunnel left wrist TOTAL ABDOMINAL HYSTERECT W/WO RMVL TUBE OVARY 2010 Hysterectomy, [place]LE FAMILY HISTORY Problem Relation Age of Onset Heart Father Diabetes Mother Asthma Mother Social History Tobacco Use Smoking status: Every Day Current packs/day: 0.50 Types: Cigarettes Smokeless tobacco: Never Vaping Use Vaping status: Never Used Substance Use Topics Alcohol use: No Drug use: No Reviewed current medications, allergies, past medical history, surgical history, family history andsocial history today. REVIEW OF SYSTEMS Denies chest pain or shortness of breath. All other reviewed and negative other than HPI. HEALTH MAINTENANCE: Reviewed health maintenance issues today and recommended the following in detail. Anxiety Screening Never done Covid-19 Vaccine(2023- season) Never done VITALS: BP 122/72 Pulse 65 Wt 86.7 kg (191 lb 2.2 oz) SpO2 97% BMI 36.00 kg/m Last 4 Encounter Wt Readings: Date: Wt: 07/16/2023 87.1 kg (192 lb) 01/10/2023 83.9 kg (185 lb) 07/12/2022 82.6 kg (182 lb) 01/11/2022 79.9 kg (176 lb 1.9 oz) PHYSICAL EXAMINATION: General appearance: Well appearing, alert, in no acute distress, well-hydrated, well nourished. Skin: Skin color, texture, turgor normal, no suspicious rashes or lesions Head: Normocephalic, no masses, lesions, tenderness or abnormalities Lungs: Lungs clear to auscultation. No wheezing, rhonchi, rales Heart: RRR without murmur, gallop, or rubs. No ectopy Abdomen: Normal abdominal exam, Abdomen soft, non-tender. Bowel sounds normal. No masses, organomegaly Extremities: No deformities, edema, skin discoloration, clubbing or cyanosis. Good capillary refill. Musculoskeletal: No joint swelling, deformity, or tenderness ASSESSMENT/PLAN: 1. Tremor, essential - ICD9: 333.1, ICD10: G25.0 (primary diagnosis) - stable. 2. Depression, unspecified depression type - ICD9: 311, ICD10: F32.A - Continue current medications. Notify us if any difficulties are noted. - BUPROPION XL 300 MG 24 HR TAB 3. Fibromyalgia - ICD9: 729.1, ICD10: M79.7 - working well. - GABAPENTIN 400 MG CAPSULE 4. Primary hypertension - ICD9: 401.9, ICD10: I10 - Controlled - able to control without meds. 5. Mixed hyperlipidemia - ICD9: 272.2, ICD10: E78.2 - Control undetermined, due for labs - has labs ordered 6. Stage 3a chronic kidney disease (HCC) - ICD9: 585.3, ICD10: N18.31 - follow labs. 7. Subclinical hypothyroidism - ICD9: 244.8, ICD10: E03.8 - follow labs. 8. Hyperglycemia - ICD9: 790.29, ICD10: R73.9 - has ordered. 9. Class 2 obesity with body mass index (BMI) of 36.0 to 36.9 in adult, unspecified obesity type, unspecified whether serious comorbidity present - ICD9: 278.00, V85.36, ICD10: E66.812, Z68.36 - watch diet. Rogerio Millan RTO in six months and prn. [facility]24 Miscellaneous Notes* Telephone Encounter - Nanci Hodges LPN - 08/04/2023 9:25 AM EDT Patient MyChart message requesting the following refill Refill(s) Requested: Requested Prescriptions Pending Prescriptions Disp Refills buPROPion XL (WELLBUTRIN XL) 300 mg 24 hr tablet 90 tablet 1 Sig: Take 1 tablet by mouth once daily. gabapentin (NEURONTIN) 400 mg capsule 270 capsule 1 Sig: Take 1 capsule by mouth every morning and 2 capsules at bedtime. ALLERGIES Allergen Reactions Lasix [Furosemide] Hives (home) [phone] (cell) Last Office Visit Date: 07/16/2023 Last [facility] Visit: Visit date not found Future Appointment: 01/23/2024 The patients preferred pharmacy has been captured for this encounter? yes Request is for script(s) to be escript to pharmacy. Nanci Hodges LPN documented [facility]Ge[facility]04-08-2024 Miscellaneous Notes* Letter - Coordinator, Mammography - 07/28/2023 7:44 PM EDT July 29, 2023 PID: [id number] Damian Solomon [address] [place] [address] Dear Ms. Solomon, We are pleased to inform you that the results of your recent breast imaging exam on 07/25/2023 are normal. Early detection of cancer is very important. We also understand recommendations regarding breast cancer screening are controversial. Please discuss with your primary care provider which strategy is best for you and whether a mammogram is right for you. Your imaging studies and report will be kept on file at [facility] as part of your permanent medical record and are available for your continuing care. Thank you for allowing us to help in meeting your health care needs. Sincerely, Dr. Dias Interpreting Radiologist [facility] (Normal over 40) documented in this encounterGe[facility]04-05-2024 History of Present illness Narrative* Shelia Sorensen RT(R) - 07/25/2023 9:30 AM EDT Radiology Service Progress Note PATIENT NAME: Damian Solomon DATE OF SERVICE: July 25, 2023 TIME: 9:21 AM PATIENT IDENTITY VERIFICATION COMPLETED USING TWO (2) IDENTIFIERS: Name and Date of confirmedby patient verbally. FALL SCREENING: Has the patient had 2 falls in the last year or 1 fall with injury or currently using an Ambulatory Assistive Device (Walker, Cane, Wheelchair, Crutches, etc.)? No PATIENT GENDER DATA: Female. status: : No status: NO. PATIENT RELEVANT IMPLANT DATA REVIEWED: Yes PATIENT PRESENTS WITH AN IMPLANTABLE OR ATTACHED TANK SETTER: No RADIOLOGY DEPARTMENT: Mammography PERIPHERAL IV DATA: Not applicable SIGNED BY: RT Garett(R) July 25, 2023 9:21 AM documented in this encounterGe[facility]03-27-2024 History of Present illness Narrative* Rogerio Millan MD - 07/16/2023 8:39 AM EDT Patient presents with: 6 Month Exam HPI: Patient presents today for office visit for follow up. Mentions scratchy throat since Friday. Progressed into B/L ear pain and pressure. Some nasal and chest congestion. Drainage is clear. Mild cough. Cough is dry. Eyes are itchy. Denies fevers Denies body aches Notes she works at [employer] and her unit last week all had URI and pink eye. No covid pos patients. No gi issues. Denies chest pain and shortness of breath FIBRO: Continues on Gabapentin 400 mg 1 capsule in the a.m 2 capsules qhs. Doing well on current dose. Feeling good. NEURO: Follows with Neuro in [place] for headaches. Stable. Continues on Topiramate 50 mg daily PSYCH: Current medication: Bupropion 300 mg daily No depression or anxiety. Feels current dose is working well. Tremor has been ok. MEDICATIONS: Current Outpatient Medications Medication Sig buPROPion XL (WELLBUTRIN XL) 300 mg 24 hr tablet Take 1 tablet by mouth once daily. gabapentin (NEURONTIN) 400 mg capsule Take 1 capsule by mouth every morning and 2 capsules at bedtime. albuterol HFA (VENTOLIN HFA) 90 mcg/actuation inhaler Inhale 2 Puffs as instructed every 4 hours asneeded for Wheezing/Shortness of Breath. topiramate XR (TROKENDI XR) 50 mg capsule Take 1 capsule by mouth once daily. No current facility-administered medications for this visit. ALLERGIES: ALLERGIES Allergen Reactions Lasix [Furosemide] Hives PAST MEDICAL HISTORY Diagnosis Date Arthritis back of head Depression Fibromyalgia Hemorrhage of gastrointestinal tract, unspecified Hemorrhage of rectum and anus Internal hemorrhoids without mention of complication Migraine Bavis Sleep deprivation brain won't let her sleep Unspecified essential hypertension Vulvar cellulitis 08/25/2019 PAST SURGICAL HISTORY Procedure Laterality Date APPENDECTOMY 2008 COLONOSCOPY FLX DX W/COLLJ SPEC WHEN PFRMD 12/18/10 PAST SURGICAL HISTORY OF 2009 carpal tunnel left wrist TOTAL ABDOMINAL HYSTERECT W/WO RMVL TUBE OVARY 2010 Hysterectomy, [place]IR[place]LE FAMILY HISTORY Problem Relation Age of Onset Heart Father Diabetes Mother Asthma Mother Social History Tobacco Use Smoking status: Every Day Packs/day: .5 Types: Cigarettes Smokeless tobacco: Never Vaping Use Vaping Use: Never used Substance Use Topics Alcohol use: No Drug use: No Reviewed current medications, allergies, past medical history, surgical history, family history andsocial history today. REVIEW OF SYSTEMS No gi or gu issues. All other reviewed and negative other than HPI. HEALTH MAINTENANCE: Reviewed health maintenance issues today and recommended the following in detail. BP Controlled (<130/80) Never done DTaP,Tdap,Td Vaccine(1 - Tdap) Never done Shingrix Vaccine(1 of 2) Never done Covid-19 Vaccine(1 - ) Never done Mammogram Screening due on 07/17/2023 VITALS: BP 128/78 Pulse 60 Temp 36.6 C (97.9 F) Ht 155.2 cm (5' 1.1) Wt 87.1 kg (192 lb) SpO2 97% BMI 36.16 kg/m Last 4 Encounter Wt Readings: Date: Wt: 01/10/2023 83.9 kg (185 lb) 07/12/2022 82.6 kg (182 lb) 01/11/2022 79.9 kg (176 lb 1.9 oz) 05/22/2021 79.8 kg (176 lb) PHYSICAL EXAMINATION: General appearance: Well appearing, alert, in no acute distress, well-hydrated, well nourished. Skin: Skin color, texture, turgor normal, no suspicious rashes or lesions Head: Normocephalic, no masses, lesions, tenderness or abnormalities Eyes: Anicteric sclera. Pupils are equally round and reactive to light. Extraocular movements are intact. Ears: External ears normal, canals clear Nose/Sinuses: Nares normal, septum midline, mucosa normal, no drainage or sinus tenderness Oropharynx: Lips, mucosa, and tongue normal, teeth and gums normal, oropharynx normal Neck: Supple, no adenopath Lungs: Lungs clear to auscultation. No wheezing, rhonchi, rales Heart: RRR without murmur, gallop, or rubs. No ectopy Abdomen: Normal abdominal exam, Abdomen soft, non-tender. Bowel sounds normal. No masses, organomegaly Extremities: No deformities, edema, skin discoloration, clubbing or cyanosis. Good capillary refill. ASSESSMENT/PLAN: 1. URI, acute - ICD9: 465.9, ICD10: J06.9 (primary diagnosis) - Discussed viral etiology and rationale for treatment. - Symptomatic treatment with prn analgesia - Supportive care with fluids and rest - COVID & INFLUENZA A/B & RSV NAAT, ROUTINE 2. Migraine without aura and without status migrainosus, not intractable - ICD9: 346.10, ICD10: G43.009 - stable. 3. Fibromyalgia - ICD9: 729.1, ICD10: M79.7 - continue meds. 4. Primary hypertension - ICD9: 401.9, ICD10: I10 - no need for meds. - COMP METABOLIC PANEL - CBC + DIFF - LIPID PANEL BASIC 5. Stage 3a chronic kidney disease (HCC) - ICD9: 585.3, ICD10: N18.31 - stable. Follow lab.s 6. Hyperglycemia - ICD9: 790.29, ICD10: R73.9 - follow labs. - HGB A1C 7. Subclinical hypothyroidism - ICD9: 244.8, ICD10: E03.8 - follow labs. - TSH BLD 8. Reactive depression - ICD9: 300.4, ICD10: F32.9 - doing well 9. Class 2 obesity with body mass index (BMI) of 36.0 to 36.9 in adult, unspecified obesity type, unspecified whether serious comorbidity present - ICD9: 278.00, V85.36, ICD10: E66.9, Z68.36 - follow and work on weight. 10. Encounter for screening mammogram for malignant neoplasm of breast - ICD9: V76.12, ICD10: Z12.31 - CHANG SCREENING Rogerio Millan MD RTO in six months documented [facility] encounterGe[facility]09-25-2023 Miscellaneous Notes* Telephone Encounter - Gisela Roy Ma - 01/13/2023 9:42 AM EDT Pt notified and voiced understanding. Gisela Roy Ma * Telephone Encounter - Rogerio Millan MD - 01/13/2023 8:03 AM EDT Labs are stable. Except her kidney function is decreased. May be related to hydration. Push fluids.Recheck bmp and ua in two weeks. documented in this encounterGe[facility]09-22-2023 History of Present illness Narrative* Rogerio Millan MD - 01/10/2023 4:07 PM EDT Patient presents with: 6 Month Exam HPI: Patient presents today for office visit for follow up. Had a stressful week. Mother in law and dog . Wellbutrin is working well. No depression or anxiety. Sleeping well. Takes gabapentin for fibromyalgia. Overall feels it is doing well. No chest pain or shortness of breath. Headaches are stable. Still seeing neuro in [place] for headaches. Has a few recently but have been ok. MEDICATIONS: Current Outpatient Medications Medication Sig buPROPion XL (WELLBUTRIN XL) 300 mg 24 hr tablet Take 1 tablet by mouth once daily. gabapentin (NEURONTIN) 400 mg capsule Take 1 capsule by mouth every morning and 2 capsules at bedtime. albuterol HFA (VENTOLIN HFA) 90 mcg/actuation inhaler Inhale 2 Puffs as instructed every 4 hours asneeded for Wheezing/Shortness of Breath. topiramate XR (TROKENDI XR) 50 mg capsule Take 1 capsule by mouth once daily. No current facility-administered medications for this visit. ALLERGIES: ALLERGIES Allergen Reactions Lasix [Furosemide] Hives PAST MEDICAL HISTORY Diagnosis Date Arthritis back of head Depression Fibromyalgia Hemorrhage of gastrointestinal tract, unspecified Hemorrhage of rectum and anus Internal hemorrhoids without mention of complication Migraine Bavis Sleep deprivation brain won't let her sleep Unspecified essential hypertension Vulvar cellulitis 08/25/2019 PAST SURGICAL HISTORY Procedure Laterality Date APPENDECTOMY 2009 COLONOSCOPY FLX DX W/COLLJ SPEC WHEN PFRMD 12/18/10 PAST SURGICAL HISTORY OF 2010 carpal tunnel left wrist TOTAL ABDOMINAL HYSTERECT W/WO RMVL TUBE OVARY 2010 Hysterectomy, MIRACLE FAMILY HISTORY Problem Relation Age of Onset Heart Father Diabetes Mother Asthma Mother Social History Tobacco Use Smoking status: Every Day Packs/day: .5 Types: Cigarettes Smokeless tobacco: Never Vaping Use Vaping Use: Never used Substance Use Topics Alcohol use: No Drug use: No Reviewed current medications, allergies, past medical history, surgical history, family history andsocial history today. REVIEW OF SYSTEMS No gi or gu changes. All other reviewed and negative other than HPI. HEALTH MAINTENANCE: Reviewed health maintenance issues today and recommended the following in detail. BP Controlled (<130/80) Never done Influenza Vaccine(1) due on 12/20/2022 VITALS: BP 130/78 Pulse 82 Resp 16 Wt 83.9 kg (185 lb) SpO2 98% BMI 34.84 kg/m Last 4 Encounter Wt Readings: Date: Wt: 01/10/2023 83.9 kg (185 lb) 07/12/2022 82.6 kg (182 lb) 01/11/2022 79.9 kg (176 lb 1.9 oz) 05/22/2021 79.8 kg (176 lb) PHYSICAL EXAMINATION: General appearance: Well appearing, alert, in no acute distress, well-hydrated, well nourished. Skin: Skin color, texture, turgor normal, no suspicious rashes or lesions Head: Normocephalic, no masses, lesions, tenderness or abnormalities Lungs: Lungs clear to auscultation. No wheezing, rhonchi, rales Heart: RRR without murmur, gallop, or rubs. No ectopy Abdomen: Normal abdominal exam, Abdomen soft, non-tender. Bowel sounds normal. No masses, organomegaly Extremities: No deformities, edema, skin discoloration, clubbing or cyanosis. Good capillary refill. Musculoskeletal: No joint swelling, deformity, or tenderness PSYCH:Affect normal. Normal speech. Normal eye contact ASSESSMENT/PLAN: 1. Migraine without aura and without status migrainosus, not intractable - ICD9: 346.10, ICD10: G43.009 (primary diagnosis) - continue to follow 2. Primary hypertension - ICD9: 401.9, ICD10: I10 - Controlled 3. Stage 3a chronic kidney disease (HCC) - ICD9: 585.3, ICD10: N18.31 - continue meds. - CBC + DIFF - COMP METABOLIC PANEL 4. Reactive depression - ICD9: 300.4, ICD10: F32.9 - continue to follow. 5. Subclinical hypothyroidism - ICD9: 244.8, ICD10: E03.8 - LIPID PANEL BASIC - TSH BLD 6. Hyperglycemia - ICD9: 790.29, ICD10: R73.9 - stable. - HGB A1C 7. Depression, unspecified depression type - ICD9: 311, ICD10: F32.A - BUPROPION XL 300 MG 24 HR TAB 8. Fibromyalgia - ICD9: 729.1, ICD10: M79.7 - GABAPENTIN 400 MG CAPSULE Rogerio Millan MD documented in this encounterGe[facility]04-26-2023 History of Present illness Narrative* Ericka Dang LPN - 08/14/2022 9:[address] Garcia Damian was provided with nightsplint, size M, and instructed/educated in its application, wear, and care. All questions were answered, and patient was able to demonstrate competence with the necessary skills to utilize the above equipment. Per Damian Young was provided with powerstep original , size 8.5, and instructed/educated inits application, wear, and care. All questions were answered, and patient was able to demonstrate competence with the necessary skills to utilize the above equipment. Ericka Dang LPN * Anuel Garcia - 08/14/2022 8:43 AM EDT Images from the original note were not included. Consultation requested by Dr. Millan for an opinion regarding left heel pain. My final recommendations will be communicated back to the requesting physician by way of shared Medical record or letter torequesting physician via US mail. Initial Podiatric Office Visit: Chief Complaint: This 57 year old female who presents with chief complaint:left heel pain HPI Patient presents to clinic for evaluation of left foot Patient has pain to the left heel that first statrted in December She states the pain is most severe when she is waking up in the morning or getting up from a resting position. Patient has tried ibuprofen, ice massage which does help but she still has pain. She is here to discuss option. PAIN EVALUATION 08/13/2022 0951 Pain Level: 9 Pain Location: Foot-Left Description: Cutting;Sharp;Stabbing;Throbbing Frequency: Continuous Intervention/Comfort measure: Cold Hemoglobin A1C (%) Date Value 01/15/2022 5.2 11/21/2020 5.7 PCP: Rogerio Millan MD PAST MEDICAL HISTORY Diagnosis Date Arthritis back of head Depression Fibromyalgia Hemorrhage of gastrointestinal tract, unspecified Hemorrhage of rectum and anus Internal hemorrhoids without mention of complication Migraine Bavis Sleep deprivation brain won't let her sleep Unspecified essential hypertension Vulvar cellulitis 08/25/2019 Current Outpatient Medications Medication Sig buPROPion XL (WELLBUTRIN XL) 300 mg 24 hr tablet Take 1 tablet by mouth once daily. gabapentin (NEURONTIN) 400 mg capsule Take 1 capsule by mouth every morning and 2 capsules at bedtime. albuterol HFA (VENTOLIN HFA) 90 mcg/actuation inhaler Inhale 2 Puffs as instructed every 4 hours asneeded for Wheezing/Shortness of Breath. topiramate XR (TROKENDI XR) 50 mg capsule Take 1 capsule by mouth once daily. No current facility-administered medications for this visit. ALLERGIES Allergen Reactions Lasix [Furosemide] Hives PAST SURGICAL HISTORY Procedure Laterality Date APPENDECTOMY 2009 COLONOSCOPY FLX DX W/COLLJ SPEC WHEN PFRMD 12/18/10 PAST SURGICAL HISTORY OF 2010 carpal tunnel left wrist TOTAL ABDOMINAL HYSTERECT W/WO RMVL TUBE OVARY 2010 Hysterectomy, MIRACLE FAMILY HISTORY Problem Relation Age of Onset Heart Father Diabetes Mother Asthma Mother Social History Tobacco Use Smoking status: Every Day Packs/day: 0.50 Types: Cigarettes Smokeless tobacco: Never Vaping Use Vaping Use: Never used Substance Use Topics Alcohol use: No Drug use: No REVIEW OF SYSTEMS GENERAL: Negative for Malaise, significant weight loss, fever RESPIRATORY: Negative for cough, wheezing and shortness of breath CARDIOVASCULAR: Negative for chest pain, leg swelling and palpitations GI: Negative for abdominal discomfort, blood in stools or black stools and change in bowel habits : Negative for dysuria, frequency and incontinence MUSCULOSKELETAL: Negative for joint pain or swelling, back pain, and muscle pain. SKIN: Negative for lesions, rash, and itching. HEMATOLOGY/LYMPHOLOGY Negative for prolonged bleeding, bruising easily, and swollen nodes. ENDOCRINE: Negative for cold or heat intolerance, polyuria, polydipsia and goiter. NEURO: negative Physical Exam: Constitutional: Pt is a well developed 57 year old female who is alert, oriented and cooperative Eyes: Following during examination. No redness or drainage. Respiratory: RR normal and nonlabored. Even breathing. No evidence of distress or shortness of breath. Psychology: Patient is engaged during conversation. Normal affect and mood. Does not appear depressed or anxious during encounter. Vascular: Dorsalis pedis and posterior tibial pulses palpable as b/l Capillary Fill time < 5 seconds to digits 1-5 b/l Skin temperature warm to warm proximal to distal b/l Hair growth present to digits Neurological: intact light touch/epicritic sensation - tinel b/l intact protective sensation no significant neurological deficits Dermatological: Nails 1-5 b/l appear normal. Webspaces clean and dry 1-4 b/l. Skin appears well hydrated and supple. good color, texture, turgor. No open lesions present. No callosities present. Musculoskeletal/Orthopaedic: Patient has pain to palpation of plantar medial calcaneal tubercle, left foot Foot type is neutral structurally AJ ROM is full with knee extended and flexed 1st MPJ is decreased when loaded and no pain or crepitus are noted with ROM. MTJ, STJ are full and free of pain and crepitus. +5/5 muscle strength dorsiflexion, plantarflexion, inversion, eversion b/l Radiographs: 3 views left foot ordered August 14, 2022: I have personally reviewed and interpreted these XR myself: plantar heel spur present. Arthritis of b/l foot ASSESSMENT: (M72.2) Plantar fasciitis of left foot (primary encounter diagnosis) (M79.672) Foot pain, left PLAN: 1. Initial Office Visit - A thorough review of the patient's PMH and Podiatric physical exam was completed. 2. Patient advised to perform stretching excercises, icing, and to make appropriate shoe gear changes to include wearing athletic-type shoes with supportive insoles. No barefoot walking. Patient alsogiven written instructions on how to correctly perform the stretching of the achilles tendon/calf st retches, and the heel spur/plantar fasciitis regimen. 3. Patient advised to seek wide, deep toe box, accomodative, comfortable, lace- up, athletic/walkingtype footwear that includes motion control characteristics for support and cushion that need to be worn at all times when weight-bearing. Shoes should be tested for torsional stability as well as proper bending at the toebox rather than at the midfoot. Good quality shoes such as, but not limited to, New Balance or Asics are examples of more proper foot gear. 4. Patient recommended to get powerstep insoles for proper support of the arch in order to alleviate the tension and stress on the plantar fascia associated with normal daily walking. Patient advisedthat these modalities used in conjunction with stretching and icing are able to alleviate most symptoms from this condition. 5. Night splint ordered 6. Offered injection. She declined. If pain fails to improve, consider injection 7. She does have arthritis of forefoot. Continue with wider shoes. She has no pain in her toes ESTHER Harman DPM Podiatry [address] [facility] [address] Dept: [phone] Dept * Hallie Marquez RN - 08/14/2022 8:15 AM EDT AMB ROOMING INTAKE FLOWSHEET DATA Pain Pain Level: 9 Pain Location: Foot-Left Description: Cutting, Sharp, Stabbing, Throbbing Frequency: Continuous Intervention/Comfort measure: Cold Patient presents with: Left Foot - New, Pain Patient presents for left foot pain that has been ongoing for months. Patient had recent X-Ray of foot. States that she has been wearing inserts and thick socks that help some as well as rolling footon water bottle. documented [facility]04[facility]23 Instructions* Patient Instructions* Anuel Garcia - 08/14/2022 8:48 AM EDT Images from the original note were not included. What is Plantar Fasciitis? Plantar fasciitis is the most common cause of heel pain. The pain is caused by inflammation of the plantar fascia. If you strain your plantar fascia, it becomes weak, swollen and irritated (inflamed). The resulting pain may be isolated in the heel or may appear at different points on the bottom of the foot, from time to time; it may occur in one foot or both. Some think that plantar fasciitis pain is caused by irritation of nerves from tissue swelling or inflammation, but it is debatable. Plantar fasciitis is common in middle-aged people; it also occurs in younger people who are on their feeta lot, such as athletes or soldiers. The plantar fascia is a strong band of connective tissue that extends from the base of the toes, along the bottom of the foot, to the bottom of the heel (calcaneous bone); it acts like a bowstring tomaintain the arch of the foot. What are heel spurs? The inflammatory reaction of the heel bone may produce spike-like projections of new bone, called heel spurs. The spurs sometimes show on X-rays. They neither cause the initial pain nor do they causethe initial problem. However, later, having to walk on spurs may cause sharp pain. What causes plantar fasciitis? Plantar fasciitis is caused by straining the ligament that supports your arch. Repeated strain can cause tiny tears in the ligament. These lead to pain and swelling. During walking, the plantar fascia experiences tension up to twice the body weight with each step. While this is normal, those who spend much time on their feet, such as nurses, clinical appeals reviewer/waiters, andmail carriers, often experience plantar fasciitis. Athletes involved in tennis or other racquet sports, race walking, jogging or running also show a higher incidence of plantar fasciitis than do those participating in other activities. Thus, it's clear that plantar fasciitis is predominantly an overuse injury. In fact, any activity that results in prolonged tension and stress on the plantar fascia may cause plantar fasciitis. It is possible that changes in footwear may play a role in causing plantar fasciitis, no matter what activity is occurring. Those who are overweight are prone to plantarfasciitis. This is true even for sedentary people who get little physical activity. Abnormalities of the foot and ankle joints may predispose some individuals to development of plantar fasciitis (spec ifically, over pronation of the subtalar joint). Contributing Factors * Flat feet * Toe running, hill running * Sudden weight increase * High-arched, rigid feet * Soft terrain, e.g. running on sand * Obesity * Pronated feet (rolled inward) * Sudden increase in activity* Family tendency * Poor shoe support * Worn out or poorly fitted shoes * Increasing age * Walking,standing or running for long periods of time, especially on hard surfaces. How is the Injury Treated? Rest Your Feet: Limit, or if possible, stop activities that are causing your heel pain. Try to avoid running or walking on hard surfaces, such as concrete. Use pain as your guide. If your foot is toopainful, rest it. Ice: Ice the sore area for 30 to 60 minutes, several times a day, to reduce inflammation and relieve pain. Apply a plastic bag of crushed ice (or a bag of frozen peas) over a towel. Ice the sore areafor 15 minutes after activity/exercise. Application of heat is not generally recommended, as heat ex pands the bone and connective tissue, perhaps exerting greater pressure on nerves and thereby increasing pain. If heat is used, follow it with ice. Medication: If your condition developed recently, anti-inflammatory/analgesic medication, combined with heel pads (see below) may be all that is necessary to relieve pain and to reduce inflammation. If no pain relief has occurred after 2- 3 weeks, however, your doctor may inject either cortisone or local anesthetic directly into the tender area. Exercises: Do simple exercises, such as calf stretches and towel stretches (see below) several times a day, especially when you first get up in the morning. These can help your ligament become more flexible and strengthen the muscles that support your arch. Shoes: Poorly fitting shoes can cause plantar fasciitis. The best type of shoe to wear is a good walking or running shoe with good shock absorption and excellent arch support. You should choose the one that fits the best. [place] with your athletic shoes to find a pair that is comfortable and causes fewer symptoms. Put your shoes on as soon as you get out of bed; going barefoot or wearing slippers may make your pain worse. Good brands include (but are not limited to): New Balance, Asics, Saucony, SAS and Merrel s. Taping: Your doctor may tape your foot to maintain the arch. This takes some of the tension off theplantar fascia. Weight Loss: If your weight is putting extra stress on your feet, your doctor may encourage you to try a weight-loss program. Orthotics: An orthotic insole is a molded piece of rubber, plastic, or other material that you insert into your shoe. It corrects the alignment of your foot and cushions your foot from excessive pounding. These may be prescription or non-prescription. Prescription orthotics are custom-fitted and may fit better and control pain better, but are very expensive. Night Splints: A night splint holds the foot with the toes pointed up and the ankle at a 90-degree angle. This position applies a constant, gentle stretch to the plantar fascia. Corticosteroid Shots: Steroids may be injected into the tender area to reduce inflammation. REHAB Exercises to stretch the plantar fascia, the calf muscles, and the Achilles tendon. Tightness of the muscles of the calves may contribute to plantar fasciitis, so stretching the calf muscles is important to rehabilitation, as is stretching of the plantar fascia itself. Plantar fascial stretches Assisted Dorsiflexion/Plantar Fascia Stretch: Sit on the floor or ground, barefoot, with both legs outstretched. Use a towel or elastic band and wrap it around the ball (and not the toes) of the affected foot. Use the towel or elastic band to provide resistance to upward movement of the forefoot. Pull foot upward (toward your body) with the help of the elastic band or towel, and then return to the starting position. Ten repetitions are recommended. Perform the sequence at least three times a day. Alternate Plantar Fascia Stretch: Sit upright in a chair, barefoot. Place the ankle of the affectedfoot on your opposite knee. Using the same hand as the affected foot, reach across and grab the toes. Flex the ankle toward and pull the toes toward the villalpando. To test the stretch, place the thumb of your hand on the bottom of the foot. You should be able to feel the cord-like plantar fascia, running the length of the foot. Hold the stretch for a count of 10, then relax. Repeat 10 times. Do the sequence at least three times a day. Achilles/Calf Stretches Strengthening the muscles of the calves may contribute to successful rehabilitation of plantar fasciitis, as well as prevent reoccurrence. The exercises below will help strengthen the calf muscles. Calf and Achilles Tendon Stretch (Gastrocnemius Stretch): Face a wall, standing an arm's length away. Place one foot back. Place both hands on the wall. Bend the elbows and knee of your forward leg, keeping the heel of the backward foot on the floor and keeping your body straight (aligned), until your forehead nearly touches the wall, or until significant stretch is felt in the muscles of the calf of the backward leg. Hold this position for 10 to 15 seconds. Extend elbows (straighten your arms and stand upright again) and maintain this position for 10 seconds. Repeat this cycle 15 to 20 times. Switch legs and repeat the exercise. Powerstep Original Full length. Can purchase at [employer] here in [place], [employer] in [place] or [place]. Also can find in [place] in [facility]. Powersteps can also be purchased online, starting around $25.00 If you have a metatarsal or dancer pad for your feet apply the pad directly to the insole so you can interchange between your shoes. Find a shoe with a removable insole and take this out and replace with your powerstep insole. Always bring powersteps with you when shopping for shoes so that you can make sure that everything fits well together documented in this [facility]03-28-2023 Miscellaneous Notes* Letter - Mammography Coordinator - 07/16/2022 10:34 AM EDT July 18, 2022 PID: [id number] Damian Solomon [address] [place] [address] Dear Ms. Solomon, We are pleased to inform you that the results of your recent breast imaging exam on 07/16/2022 are normal. Early detection of cancer is very important. We also understand recommendations regarding breast cancer screening are controversial. Please discuss with your primary care provider which strategy is best for you and whether a mammogram is right for you. Your imaging studies and report will be kept on file at [facility] as part of your permanent medical record and are available for your continuing care. Thank you for allowing us to help in meeting your health care needs. Sincerely, Dr. Griffiths Interpreting Radiologist [facility] (Normal over 40) documented in this encounterGeorgetown [facility]03-28-2023 History of Present illness Narrative* Krystina Cooper RT(R) - 07/16/2022 8:50 AM EDT Radiology Service Progress Note PATIENT NAME: Damian Solomon DATE OF SERVICE: July 16, 2022 TIME: 8:55 AM PATIENT IDENTITY VERIFICATION COMPLETED USING TWO (2) IDENTIFIERS: Name and Date of confirmedby patient verbally. FALL SCREENING: Has the patient had 2 falls in the last year or 1 fall with injury or currently using an Ambulatory Assistive Device (Walker, Cane, Wheelchair, Crutches, etc.)? No PATIENT GENDER DATA: Female. status: : No status: NO. PATIENT RELEVANT IMPLANT DATA REVIEWED: Not Applicable RADIOLOGY DEPARTMENT: Mammography PERIPHERAL IV DATA: Not applicable SIGNED BY: RT Mateo(R) July 16, 2022 8:55 AM documented in this encounterGe[facility]03-24-2023 History of Present illness Narrative* Shannon Gunn RT(R) - 07/12/2022 10:30 AM EDT Radiology Service Progress Note PATIENT NAME: Damian Solomon DATE OF SERVICE: July 12, 2022 TIME: 10:23 AM PATIENT IDENTITY VERIFICATION COMPLETED USING TWO (2) IDENTIFIERS: Name and Date of confirmedby patient verbally. FALL SCREENING: Has the patient had 2 falls in the last year or 1 fall with injury or currently using an Ambulatory Assistive Device (Walker, Cane, Wheelchair, Crutches, etc.)? No PATIENT GENDER DATA: Female. status: : No status: NO. PATIENT RELEVANT IMPLANT DATA REVIEWED: Yes RADIOLOGY DEPARTMENT: General X-ray: Exam(s) Completed: Lower Extremity X- Ray(s): Foot, Left and Wt. Bearing PERIPHERAL IV DATA: Not applicable SIGNED BY: RT Mariano(R) July 12, 2022 10:23 AM documented in this encounterGe[facility]03-24-2023 History of Present illness Narrative* Rogerio Millan MD - 07/12/2022 9:52 AM EDT Patient presents with: 6 Month Exam HPI: Patient presents today for office visit for follow up. PSYCH: Currently tolerating medications well: Yes . Side effects: No. Sleep issues: No. Energy changes: No. Appetite changes: No. Current depression: No. Current anxiety: No. Suicidal ideation: No. 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. Has been doing this for a month now and liking it much easier on her. Fibro:is doing well. Headaches are doing well. Still with some foot pain on the left foot. Xray had been ordered, still around the heel. Has seen podiatry in the past. Had recommended foot wear. Has been using ice. Is chronic. Component Latest Ref Rng & Units 01/15/2022 WBC 3.70 - 11.00 k/uL 6.05 RBC 3.90 - 5.20 m/uL 4.65 Hemoglobin 11.5 - 15.5 g/dL 13.4 Hematocrit 36.0 - 46.0 % 43.5 MCV 80.0 - 100.0 fL 93.5 MCH 26.0 - 34.0 pg 28.8 MCHC 30.5 - 36.0 g/dL 30.8 RDW-CV 11.5 - 15.0 % 14.4 Platelet Count 150 - 400 k/uL 309 MPV 9.0 - 12.7 fL 9.6 Neut% % 52.9 Abs Neut (ANC) 1.45 - 7.50 k/uL 3.20 Lymph% % 35.9 Abs Lymph 1.00 - 4.00 k/uL 2.17 [place]% % 6.6 Abs [place] <0.87 k/uL 0.40 Eosin% % 3.0 Abs Eosin <0.46 k/uL 0.18 Baso% % 1.3 Abs Baso <0.11 k/uL 0.08 Immature Gran % % 0.3 IMMATURE GRANS (ABS) <0.10 k/uL <0.03 NRBC /100 WBC 0.0 Absolute nRBC <0.01 k/uL <0.01 DTYPE Auto Protein, Total 6.3 - 8.0 g/dL 6.6 Albumin 3.9 - 4.9 g/dL 4.1 Calcium 8.5 - 10.2 mg/dL 9.1 Bilirubin, Total 0.2 - 1.3 mg/dL 0.3 Alkaline Phosphatase 34 - 123 U/L 77 AST 13 - 35 U/L 22 ALT 7 - 38 U/L 14 Glucose 74 - 99 mg/dL 92 BUN 7 - 21 mg/dL 12 Creatinine 0.58 - 0.96 mg/dL 1.03 (H) Sodium 136 - 144 mmol/L 142 Potassium 3.7 - 5.1 mmol/L 4.0 Chloride 97 - 105 mmol/L 106 (H) CO2 22 - 30 mmol/L 24 Anion Gap 9 - 18 mmol/L 12 eGFR >=60 mL/min/1.73m 64 Cholesterol, Total <200 mg/dL 234 (H) Triglyceride <150 mg/dL 74 HDL Cholesterol >39 mg/dL 62 Non HDL Cholesterol <130 mg/dL 172 (H) Fasting Time hrs 12 VLDL Cholesterol <30 mg/dL 15 TC:HDL Ratio <5.10 3.77 LDL Cholesterol <100 mg/dL 157 (H) LDL:HDL Ratio <2.54 2.53 HIV 12 Combo (Ag/Ab) Nonreactive Nonreactive HIV 1/2 Ab HIV Interpretation Hemoglobin A1C 4.3 - 5.6 % 5.2 Estimated Average Glucose mg/dL 103 TSH 0.270 - 4.200 mIU/L 5.750 (H) Hep C Antibody IA Negative Negative MEDICATIONS: Current Outpatient Medications Medication Sig buPROPion XL (WELLBUTRIN XL) 300 mg 24 hr tablet Take 1 tablet by mouth once daily. gabapentin (NEURONTIN) 400 mg capsule Take 1 capsule by mouth every morning and 2 capsules at bedtime. topiramate XR (TROKENDI XR) 50 mg capsule Take 1 capsule by mouth once daily. albuterol HFA (VENTOLIN HFA) 90 mcg/actuation inhaler Inhale 2 Puffs as instructed every 4 hours asneeded for Wheezing/Shortness of Breath. No current facility-administered medications for this visit. ALLERGIES: ALLERGIES Allergen Reactions Lasix [Furosemide] Hives PAST MEDICAL HISTORY Diagnosis Date Arthritis back of head Depression Fibromyalgia Hemorrhage of gastrointestinal tract, unspecified Hemorrhage of rectum and anus Internal hemorrhoids without mention of complication Migraine Bavis Sleep deprivation brain won't let her sleep Unspecified essential hypertension Vulvar cellulitis 08/25/2019 PAST SURGICAL HISTORY Procedure Laterality Date APPENDECTOMY 2008 COLONOSCOPY FLX DX W/COLLJ SPEC WHEN PFRMD 12/18/10 PAST SURGICAL HISTORY OF 2010 carpal tunnel left wrist TOTAL ABDOMINAL HYSTERECT W/WO RMVL TUBE OVARY 2010 Hysterectomy, MIRACLE FAMILY HISTORY Problem Relation Age of Onset Heart Father Diabetes Mother Asthma Mother Social History Tobacco Use Smoking status: Every Day Packs/day: 0.50 Types: Cigarettes Smokeless tobacco: Never Vaping Use Vaping Use: Never used Substance Use Topics Alcohol use: No Drug use: No Reviewed current medications, allergies, past medical history, surgical history, family history andsocial history today. REVIEW OF SYSTEMS All other reviewed and negative other than HPI. HEALTH MAINTENANCE: Reviewed health maintenance issues today and recommended the following in detail. COVID-19 VACCINE(1) Never done DTAP,TDAP,TD(1 - Tdap) Never done SHINGRIX VACCINE(1 of 2) Never done MAMMOGRAM due on 05/18/2021 VITALS: BP 132/82 Pulse 63 Wt 82.6 kg (182 lb) SpO2 98% BMI 34.27 kg/m Last 4 Encounter Wt Readings: Date: Wt: 07/12/2022 82.6 kg (182 lb) 01/11/2022 79.9 kg (176 lb 1.9 oz) 05/22/2021 79.8 kg (176 lb) 11/24/2020 87.5 kg (193 lb) PHYSICAL EXAMINATION: General appearance: pleasant. Skin: Skin color, texture, turgor normal, no suspicious rashes or lesions Head: Normocephalic, no masses, lesions, tenderness or abnormalities Lungs: Lungs clear to auscultation. No wheezing, rhonchi, rales Heart: RRR without murmur, gallop, or rubs. No ectopy Abdomen: Normal abdominal exam, Abdomen soft, non-tender. Bowel sounds normal. No masses, organomegaly Extremities: No deformities, edema, skin discoloration, clubbing or cyanosis. Good capillary refill. Musculoskeletal: No joint swelling, deformity, or tenderness ASSESSMENT/PLAN: 1. Migraine without aura and without status migrainosus, not intractable - ICD9: 346.10, ICD10: G43.009 (primary diagnosis) - continue meds. 2. Depression, unspecified depression type - ICD9: 311, ICD10: F32.A - BUPROPION XL 300 MG 24 HR TAB 3. Fibromyalgia - ICD9: 729.1, ICD10: M79.7 - GABAPENTIN 400 MG CAPSULE 4. Hyperglycemia - ICD9: 790.29, ICD10: R73.9 - a1c was good. 5. Subclinical hypothyroidism - ICD9: 244.8, ICD10: E03.8 Follow labs. - TSH BLD 6. Stage 3a chronic kidney disease (HCC) - ICD9: 585.3, ICD10: N18.31 - has been stable. - BASIC METABOLIC PNL 7. Primary hypertension - ICD9: 401.9, ICD10: I10 - good off of meds. 8. Mixed hyperlipidemia - ICD9: 272.2, ICD10: E78.2 - stable. 9. Foot pain, left - ICD9: 729.5, ICD10: M79.672 - XR FOOT GENERAL 3V AP/LAT/OBL LEFT - CONSULT TO PODIATRY 10. Screening breast examination - ICD9: V76.10, ICD10: Z12.39 - CHANG SCREENING Rogerio Millan RTO in six months and prn. documented in this [facility]12-15-2022 Miscellaneous Notes* Telephone Encounter - Zoya Hawthorne LPN - 04/04/2022 8:32 AM EST Patient phones requesting refills as follows: Requested Prescriptions Pending Prescriptions Disp Refills buPROPion XL (WELLBUTRIN XL) 300 mg 24 hr tablet 90 tablet 1 Sig: Take 1 tablet by mouth once daily. AWA 01/11/22 NOV 07/12/21 Please review and advise. Zoya Hawthorne LPN documented in this encounterGe[facility]09-23-2022 History of Present illness Narrative* Rogerio Millan MD - 01/11/2022 8:18 AM EDT Patient presents with: Physical HPI: Patient presents today for office visit for physical . Complains of foot pain. Started about a week ago. Is on top of the feet. No swelling or redness or warmth. No injury. No numbness. Occasionally tingles. Soaking in epsom salts will help. Ice will help. Worse after being on her feet. Changing shoes did help. Moods are doing well. No side effects of meds. Headaches are doing well. Still working on tremors. Fibro is stable. MEDICATIONS: Current Outpatient Medications Medication Sig buPROPion XL (WELLBUTRIN XL) 300 mg 24 hr tablet Take 1 tablet by mouth once daily. gabapentin (NEURONTIN) 400 mg capsule Take 1 capsule by mouth every morning and 2 capsules at bedtime. albuterol HFA (VENTOLIN HFA) 90 mcg/actuation inhaler Inhale 2 Puffs as instructed every 4 hours asneeded for Wheezing/Shortness of Breath. topiramate XR (TROKENDI XR) 50 mg capsule Take 1 capsule by mouth once daily. No current facility-administered medications for this visit. ALLERGIES: ALLERGIES Allergen Reactions Lasix [Furosemide] Hives PAST MEDICAL HISTORY Diagnosis Date Arthritis back of head Depression Fibromyalgia Hemorrhage of gastrointestinal tract, unspecified Hemorrhage of rectum and anus Internal hemorrhoids without mention of complication Migraine Bavis Sleep deprivation brain won't let her sleep Unspecified essential hypertension Vulvar cellulitis 08/25/2019 PAST SURGICAL HISTORY Procedure Laterality Date APPENDECTOMY 2009 COLONOSCOPY FLX DX W/COLLJ SPEC WHEN PFRMD 12/18/10 PAST SURGICAL HISTORY OF 2010 carpal tunnel left wrist TOTAL ABDOMINAL HYSTERECT W/WO RMVL TUBE OVARY 2010 Hysterectomy, MIRACLE FAMILY HISTORY Problem Relation Age of Onset Heart Father Diabetes Mother Asthma Mother Social History Tobacco Use Smoking status: Every Day Packs/day: 0.50 Types: Cigarettes Smokeless tobacco: Never Vaping Use Vaping Use: Never used Substance Use Topics Alcohol use: No Drug use: No Reviewed current medications, allergies, past medical history, surgical history, family history andsocial history today. REVIEW OF SYSTEMS RESPIRATORY: Negative for cough, hemoptysis, wheezing, COPD, dyspnea or shortness of breath CARDIOVASCULAR: Negative for chest pain, leg swelling, CHF or palpitations GI: Negative for blood in stools or black stools, change in bowel habit : Negative All other reviewed and negative other than HPI. HEALTH MAINTENANCE: Reviewed health maintenance issues today and recommended the following in detail. HEPATITIS B(1 of 3 - 3-dose series) done, unsure of date. COVID-19 VACCINE(1) Never done PNEUMOCOCCAL(1 - PCV) - discussed HEPATITIS C SCREENING Never done HIV SCREENING Never done DTAP,TDAP,TD(1 - Tdap) Never done SHINGRIX VACCINE(1 of 2) Never done COLORECTAL CANCER SCREENING due on 12/18/2020 MAMMOGRAM due on 05/18/2021 VITALS: BP 110/72 Pulse 60 Resp 16 Ht 155.2 cm (5' 1.1) Wt 79.9 kg (176 lb 1.9 oz) SpO2 97% BMI 33.17 kg/m Last 4 Encounter Wt Readings: Date: Wt: 01/11/2022 79.9 kg (176 lb 1.9 oz) 05/22/2021 79.8 kg (176 lb) 11/24/2020 87.5 kg (193 lb) 04/26/2020 86.6 kg (191 lb) PHYSICAL EXAMINATION: General appearance: Well appearing, alert, in no acute distress, well-hydrated, well nourished. Skin: Skin color, texture, turgor normal, no suspicious rashes or lesions Head: Normocephalic, no masses, lesions, tenderness or abnormalities Eyes: Anicteric sclera. Pupils are equally round and reactive to light. Extraocular movements are intact. Ears: External ears normal, canals clear Lungs: Lungs clear to auscultation. No wheezing, rhonchi, rales Heart: RRR without murmur, gallop, or rubs. No ectopy Abdomen: Normal abdominal exam, Abdomen soft, non-tender. Bowel sounds normal. No masses, organomegaly Extremities: No deformities, edema, skin discoloration, clubbing or cyanosis. Good capillary refill. Feet:Shoes and socks removed, normal distal pulses, sensitive to 10 gm monofilament, nails notable for Crumbly, Deformed, Hypertrophic, or Yellowish, and pes planus. Also has hammer toes bilaterally ASSESSMENT/PLAN: 1. Well adult exam - ICD9: V70.0, ICD10: Z00.00 (primary diagnosis) 2. Subclinical hypothyroidism - ICD9: 244.8, ICD10: E03.8 Check labs. - LIPID PANEL BASIC - TSH BLD 3. Hyperglycemia - ICD9: 790.29, ICD10: R73.9 - HGB A1C 4. Reactive depression - ICD9: 300.4, ICD10: F32.9 - continue med.s 5. Stage 3a chronic kidney disease (HCC) - ICD9: 585.3, ICD10: N18.3 - CBC + DIFF - COMP METABOLIC PANEL 6. Fibromyalgia - ICD9: 729.1, ICD10: M79.7 - continue gabapentin. 7. Screening for HIV (human immunodeficiency virus) - ICD9: V73.89, ICD10: Z11.4 - HIV 1 2 COMBO(AG/AB),WITH REFLEX TO DIFFERENTIATION 8. Need for hepatitis C screening test - ICD9: V73.89, ICD10: Z11.59 - HEP C AB IA W/CONF SCRN 9. Need for vaccination - ICD9: V05.9, ICD10: Z23 - PNEUMOCOCCAL VACCINE (PREVNAR 20) 10. Screening for colon cancer - ICD9: V76.51, ICD10: Z12.11 - COLOGUARD 11. Screening breast examination - ICD9: V76.10, ICD10: Z12.39 - CHANG SCREENING 12. Pes planus of both feet - ICD9: 734, ICD10: M21.41, M21.42 - XR FOOT GENERAL 3V AP/LAT/OBL BILATERAL 13. Foot pain, bilateral - ICD9: 729.5, ICD10: M79.671, M79.672 - declines podiatry. Discussed shoe inserts, good foot wear - XR FOOT GENERAL 3V AP/LAT/OBL BILATERAL Rogerio Millan MD [facility] History of Present illness Narrative* [facility] - 11/30/2021 1:19 PM EDT 3rd failed attempt, mailed colonoscopy letter [facility] PSS * Osiel Coats - 11/29/2021 9:20 AM EDT 2nd failed attempt to schedule consult to general surgery, left JN 11/29 * [facility] - 11/21/2021 10:03 AM EDT .1st failed attempt to contact patient. Left message to return call. [facility] PSS * Anh Moralez RN - 11/19/2021 1:14 PM EDT Patient is overdue for screening colonoscopy. Patient is not a candidate for open access. Please schedule patient for office consult. Anh Moralez RN [facility] Miscellaneous Notes* Telephone Encounter - Anne Gibbons APRN.CNP - 09/28/2021 3:41 PM EDT Script sent. Anne Gibbons APRN.CNP * Telephone Encounter - Osiel Yin LPN - 09/28/2021 3:16 PM EDT Patient phones requesting refills as follows: Pending Prescriptions Disp Refills BUPROPION XL 300 MG 24 HR TAB 90 tablet 1 Sig: Take 1 tablet by mouth once daily. KORTNEY: No GABAPENTIN 400 MG CAPSULE 270 capsule 1 Sig: Take 1 capsule by mouth every morning and 2 capsules at bedtime. KORTNEY: No AWA 05/22/21 NOV no upcoming appt Please review and advise. Osiel Yin LPN documented [facility] History of Past illness Narrative* Problem Noted Date Diagnosed Date Resolved Date Constitutional obesity 07/25/201607/15 Hypothyroid 03/25/2014 07/25/2016 Rectal bleeding 12/13/2010 12/31/2016 documented as of this encounter (statuses as of 07/16/2023) [facility] of Past illness Narrative* Problem Noted Date Diagnosed Date Resolved Date Constitutional obesity 07/25/201607/15 Hypothyroid 03/25/2014 07/25/2016 Rectal bleeding 12/13/2010 12/31/2016 documented as of this encounter (statuses as of 07/26/2023) [facility] of Past illness Narrative* Problem Noted Date Diagnosed Date Resolved Date Constitutional obesity 07/25/201607/15 Hypothyroid 03/25/2014 07/25/2016 Rectal bleeding 12/13/2010 12/31/2016 documented as of this encounter (statuses as of 07/30/2023) [facility] of [facility] illness Narrative* Problem Noted Date Diagnosed Date Resolved Date Constitutional obesity 07/25/201607/15 Hypothyroid 03/25/2014 07/25/2016 Rectal bleeding 12/13/2010 12/31/2016 documented as of this encounter (statuses as of 08/04/2023) [facility] illness Narrative* Problem Noted Date Resolved Date Hypothyroid 03/25/2014 07/25/2016 Rectal bleeding 12/13/2010 12/31/2016 documented as of this encounter (statuses as of 09/28/2021) [facility] Narrative* Problem Noted Date Resolved Date Hypothyroid 03/25/2014 07/25/2016 Rectal bleeding 12/13/2010 12/31/2016 documented as of this encounter (statuses as of 11/30/2021) [facility] Narrative* Problem Noted Date Resolved Date Hypothyroid 03/25/2014 07/25/2016 Rectal bleeding 12/13/2010 12/31/2016 documented as of this encounter (statuses as of 01/11/2022) [facility] Narrative* Problem Noted Date Resolved Date Hypothyroid 03/25/2014 07/25/2016 Rectal bleeding 12/13/2010 12/31/2016 documented as of this encounter (statuses as of 04/04/2022) [facility] Narrative* Problem Noted Date Resolved Date Hypothyroid 03/25/2014 07/25/2016 Rectal bleeding 12/13/2010 12/31/2016 documented as of this encounter (statuses as of 07/12/2022) [facility] Narrative* Problem Noted Date Resolved Date Hypothyroid 03/25/2014 07/25/2016 Rectal bleeding 12/13/2010 12/31/2016 documented as of this encounter (statuses as of 07/19/2022) [facility] Narrative* Problem Noted Date Resolved Date Hypothyroid 03/25/2014 07/25/2016 Rectal bleeding 12/13/2010 12/31/2016 documented as of this encounter (statuses as of 08/14/2022) [facility] Narrative* Problem Noted Date Diagnosed Date Resolved Date Hypothyroid 03/25/2014 07/25/2016 Rectal bleeding 12/13/2010 12/31/2016 documented as of this encounter (statuses as of 01/11/2023) [facility] Narrative* Problem Noted Date Diagnosed Date Resolved Date Hypothyroid 03/25/2014 07/25/2016 Rectal bleeding 12/13/2010 12/31/2016 documented as of this encounter (statuses as of 01/13/2023) [facility] Narrative* Problem Noted Date Diagnosed Date Resolved Date Hypothyroid 03/25/2014 07/25/2016 Rectal bleeding 12/13/2010 12/31/2016 documented as of this encounter (statuses as of 02/23/2023) [facility] Diagnosis Depression, unspecified depression type Fibromyalgia Mylagia and myositis, unspecified documented [facility] this encounter [facility]* Diagnosis Well adult exam- Primary Routine general medical examination at a health care facility Subclinical hypothyroidism Other specified acquired hypothyroidism Hyperglycemia Other abnormal glucose Reactive depression Dysthymic disorder Stage 3a chronic kidney disease (HCC) Fibromyalgia Mylagia and myositis, unspecified Screening for HIV (human immunodeficiency virus) Special screening examination for other specified viral diseases Need for hepatitis C screening test Special screening examination for other specified viral diseases Need for vaccination Need for prophylactic vaccination and inoculation against unspecified single disease Screening for colon cancer Special screening for malignant neoplasms, colon Screening breast examination Breast screening, unspecified Pes planus of both feet Foot pain, bilateral Pain in limb documented [facility] this encounter [facility]* Diagnosis Depression, unspecified depression type documented in this encounter [facility]* Diagnosis Migraine without aura and without status migrainosus, not intractable- Primary Migraine without aura, without mention of intractable migraine without mention of status migrainosus Depression, unspecified depression type Fibromyalgia Mylagia and myositis, unspecified Hyperglycemia Other abnormal glucose Subclinical hypothyroidism Other specified acquired hypothyroidism Stage 3a chronic kidney disease (HCC) Primary hypertension Unspecified essential hypertension Mixed hyperlipidemia Foot pain, left Pain in limb Screening breast examination Breast screening, unspecified documented [facility] this encounter [facility]* Diagnosis Plantar fasciitis of left foot- Primary Plantar fascial fibromatosis Foot pain, left Pain in limb [facility] Migraine without aura and without status migrainosus, not intractable- Primary Migraine without aura, without mention of intractable migraine without mention of status migrainosus Primary hypertension Unspecified essential hypertension Stage 3a chronic kidney disease (HCC) Reactive depression Dysthymic disorder Subclinical hypothyroidism Other specified acquired hypothyroidism Hyperglycemia Other abnormal glucose Depression, unspecified depression type Fibromyalgia Mylagia and myositis, unspecified Need for influenza vaccination Need for prophylactic vaccination and inoculation against influenza [facility]* Diagnosis Renal insufficiency- Primary Unspecified disorder of kidney and ureter [facility]* Diagnosis Screening breast examination Breast screening, unspecified [facility]* Diagnosis URI, acute- Primary Acute upper respiratory infections of unspecified site Migraine without aura and without status migrainosus, not intractable Migraine without aura, without mention of intractable migraine without mention of status migrainosus Fibromyalgia Mylagia and myositis, unspecified Primary hypertension Unspecified essential hypertension Stage 3a chronic kidney disease (HCC) Hyperglycemia Other abnormal glucose Subclinical hypothyroidism Other specified acquired hypothyroidism Reactive depression Dysthymic disorder Class 2 obesity with body mass index (BMI) of 36.0 to 36.9 in adult, unspecified obesity type, unspecified whether serious comorbidity present Encounter for screening mammogram for malignant neoplasm of breast Other screening mammogram documented [facility] this encounter [facility]* Diagnosis Encounter for screening mammogram for malignant neoplasm of breast Other screening mammogram documented [facility] this encounter [facility]* Diagnosis Depression, unspecified depression type Fibromyalgia Mylagia and myositis, unspecified documented [facility] this encounter [facility]* Diagnosis Foot pain, left Pain in limb documented [facility] this encounter [facility]* Diagnosis Tremor, essential- Primary Essential and other specified forms of tremor Depression, unspecified depression type Fibromyalgia Mylagia and myositis, unspecified Primary hypertension Unspecified essential hypertension Mixed hyperlipidemia Stage 3a chronic kidney disease (HCC) Subclinical hypothyroidism Other specified acquired hypothyroidism Hyperglycemia Other abnormal glucose Class 2 obesity with body mass index (BMI) of 36.0 to 36.9 in adult, unspecified obesity type, unspecified whether serious comorbidity present documented in this encounter [facility]* Diagnosis Abnormal TSH- Primary Other abnormal clinical finding documented in this encounter [facility]* Diagnosis Well adult exam- Primary Routine general medical examination at a health care facility Tremor, essential Essential and other specified forms of tremor Migraine without aura and without status migrainosus, not intractable Migraine without aura, without mention of intractable migraine without mention of status migrainosus Primary hypertension Unspecified essential hypertension Mixed hyperlipidemia Subclinical hypothyroidism Other specified acquired hypothyroidism Reactive depression Dysthymic disorder Encounter for screening mammogram for malignant neoplasm of breast Other screening mammogram documented in this encounter [facility]* Diagnosis Fibromyalgia Mylagia and myositis, unspecified documented in this encounter [facility]* Diagnosis Depression, unspecified depression type documented in this encounter [facility]* Diagnosis Encounter for screening mammogram for breast cancer documented in this encounter [facility]* Diagnosis Encounter for screening mammogram for breast cancer Encounter for screening mammogram for breast cancer documented in this encounter [facility]* Diagnosis Primary hypertension- Primary Unspecified essential hypertension Mixed hyperlipidemia Subclinical hypothyroidism Other specified acquired hypothyroidism Reactive depression Dysthymic disorder Class 2 obesity with body mass index (BMI) of 36.0 to 36.9 in adult, unspecified obesity type, unspecified whether serious comorbidity present Migraine without aura and without status migrainosus, not intractable Migraine without aura, without mention of intractable migraine without mention of status migrainosus Tremor, essential Essential and other specified forms of tremor Screening for colon cancer Special screening for malignant neoplasms, colon documented in this encounter [facility] noteNo assessment information availableWooCleveland Clinic Foundation Work Phone: Hospital Discharge instructionsAdditional Instructions Follow-up your doctor in outpatient setting. To have your primary care physician order a stress test. Return with worsening symptoms or other concerns. Take antibiotics and steroids as prescribed. Use inhaler as prescribed.[facility] Work Phone: Reason for referral (narrative)* Diagnostic Procedure Only (Routine) - Pending Review Specialty Diagnoses / Procedures Referred By Jerad salvador Referred To Contact XR IMAGING Diagnoses Pes planus of both feet Foot pain, bilateral Procedures XR FOOT GENERAL 3V AP/LAT/OBL BILATERAL RADEX FOOT COMPLETE MINIMUM 3 VIEWS Rogerio Millan MD [address] [place] [address] Xr Imaging Referral ID Status Reason Start Date Expiration Date Visits Requested Visits Authorized [id number] Pending Review Auto-Generat ed Referral 01/11/2022 02/10/2023 1 1 * Diagnostic Procedure Only (Routine) - Pending Review Specialty Diagnoses / Procedures Referred By Jerad salvador Referred To Contact BR IMAGING Diagnoses Screening breast examination Procedures CHANG SCREENING SCREENING MAMMOGRAPHY BI 2-VIEW BREAST INC CAD Rogerio Millan MD [address] [place] [address] [facility] [address] [place] [address] Referral ID Status Reason Start Date Expiration Date Visits Requested Visits Authorized [id number] Pending Review Auto-Generat ed Referral 01/11/2022 02/10/2023 1 1 [facility] for referral (narrative)* Diagnostic Procedure Only (Routine) - Authorized Specialty Diagnoses / Procedures Referred By Contac t Referred To Contact BR IMAGING Diagnoses Screening breast examination Procedures CHANG SCREENING SCREENING MAMMOGRAPHY BI 2-VIEW BREAST INC CAD Rogerio Millan MD [address] [place] [address] [facility] [address] [place] [address] Referral ID Status Reason Start Date Expiration Date Visits Requested Visits Authorized [id number] Authorized Auto-Generat ed Referral 07/12/2022 08/11/2023 1 1 * Consult, Test, Treat (Routine) - Authorized Specialty Diagnoses / Procedures Referred By Jerad t Referred To Contact Podiatry Diagnoses Foot pain, left Procedures CONSULT TO PODIATRY OFFICE/OUTPATIENT [facility] 60-74 MINUTES Rogerio Millan MD [address] [place] [address] Referral ID Status Reason Start Date Expiration Date Visits Requested Visits Authorized [id number] Authorized PCP Requested Referral 07/12/2022 07/12/2023 1 1 * Diagnostic Procedure Only (Routine) - Closed Specialty Diagnoses / Procedures Referred By Kevinac t Referred To Contact XR IMAGING Diagnoses Foot pain, left Procedures XR FOOT GENERAL 3V AP/LAT/OBL LEFT RADEX FOOT COMPLETE MINIMUM 3 VIEWS Rogerio Millan MD [address] [place] [address] Xr Imaging Referral ID Status Reason Start Date Expiration Date V isits Requested Visits Authorized [id number] Closed Auto-Generate d Referral 07/12/2022 08/11/2023 1 1 [facility] for referral (narrative)* Diagnostic Procedure Only (Routine) - Closed Specialty Diagnoses / Procedures Referred By Contac t Referred To Contact BR IMAGING Diagnoses Screening breast examination Procedures CHANG SCREENING SCREENING MAMMOGRAPHY BI 2-VIEW BREAST INC CAD Kyler, Rogerio J, MD [address] [place] [address] [facility] [address] [place] [address] Referral ID Status Reason Start Date Expiration Date V isits Requested Visits Authorized [id number] Closed Auto-Generate d Referral 07/12/2022 08/11/2023 1 1 T [facility] for referral (narrative)* Diagnostic Procedure Only (Routine) - Authorized Specialty Diagnoses / Procedures Referred By Contac t Referred To Contact BR IMAGING Diagnoses Encounter for screening mammogram for malignant neoplasm of breast Procedures CHANG SCREENING SCREENING MAMMOGRAPHY BI 2-VIEW BREAST INC Rogerio Barlow MD [address] [place] [address] Br Imaging [facility] [place] [address] Referral ID Status Reason Start Date Expiration Date Visits Requested Visits Authorized [id number] Authorized Auto-Generat ed Referral 07/16/2023 08/14/2024 1 1 [facility] for referral (narrative)* Diagnostic Procedure Only (Routine) - Closed Specialty Diagnoses / Procedures Referred By Contac t Referred To Contact XR IMAGING Diagnoses Foot pain, left Procedures XR FOOT GENERAL 3V AP/LAT/OBL LEFT RADEX FOOT COMPLETE MINIMUM 3 VIEWS Rogerio Millan MD [address] [place] [address] Xr Imaging [facility] Referral ID Status Reason Start Date Expiration Date V isits Requested Visits Authorized [id number] Closed Auto-Generate d Referral 07/12/2022 08/11/2023 1 1 [facility] for referral (narrative)* Diagnostic Procedure Only (Routine) - New Request Specialty Diagnoses / Procedures Referred By Contac t Referred To Contact BR IMAGING Diagnoses Encounter for screening mammogram for malignant neoplasm of breast Procedures CHANG SCREENING SCREENING MAMMOGRAPHY BI 2-VIEW BREAST INC Rogerio Barlow MD [address] [place] [address] [facility] [address] [place] [address] Referral ID Status Reason Start Date Expiration Date Visits Requested Visits Authorized [id number] New Request Auto-Generat ed Referral 05/21/2024 09/16/2025 1 1 [facility] for referral (narrative)No reason for referral information availableWLancaster Municipal Hospital Work Phone: Reason for visit Narrative* Diagnostic Procedure Only (Routine) - Closed Specialty Diagnoses / Procedures Referred By Contac t Referred To Contact BR IMAGING Diagnoses Screening breast examination Procedures CHANG SCREENING SCREENING MAMMOGRAPHY BI 2-[place] [address] [place] [address] [facility] Imaging [address] [place] [place] [address] Referral ID Status Reason Start Date Expiration Date V isits Requested Visits Authorized [id number] Closed Auto-Generate d Referral 07/12/2022 08/11/2023 1 1 [facility] for visit Narrative* Diagnostic Procedure Only (Routine) - Closed Specialty Diagnoses / Procedures Referred By Contac t Referred To Contact BR IMAGING Diagnoses Encounter for screening mammogram for malignant neoplasm of breast Procedures CHANG SCREENING SCREENING MAMMOGRAPHY BI 2-VIEW BREAST INC Rogerio Barlow MD [address] [place] [address] [facility] [address] [place] [address] Referral ID Status Reason Start Date Expiration Date V isits Requested Visits Authorized [id number] Closed Auto-Generate d Referral 07/16/2023 08/14/2024 1 1 [facility] for visit Narrative* Diagnostic Procedure Only (Routine) - Closed Specialty Diagnoses / Procedures Referred By Kevinac t Referred To Contact XR IMAGING Diagnoses Foot pain, left Procedures XR FOOT GENERAL 3V AP/LAT/OBL LEFT RADEX FOOT COMPLETE MINIMUM [place] [address] [place] [address] [place] [address] Referral ID Status Reason Start Date Expiration Date V isits Requested Visits Authorized [id number] Closed Auto-Generate d Referral 07/12/2022 08/11/2023 1 1 [facility] N[facility]* Diagnostic Procedure Only (Routine) - Closed Specialty Diagnoses / Procedures Referred By Contac t Referred To Contact BR IMAGING Diagnoses Encounter for screening mammogram for breast cancer Procedures CHANG SCREENING W LISSETH SCREENING DIGITAL BREAST TOMOSYNTHESIS BI SCREENING MAMMOGRAPHY BI 2-VIEW BREAST INC CAD Rogerio Millan MD [address] [place] [address] Phone: tel: fax: [facility] IMAG[facility] [address] [place] [address] Referral ID Status Reason Start Date Expiration Date V isits Requested Visits Authorized [id number] Closed Auto-Generate d Referral 08/24/2024 09/23/2025 1 1 [facility] Summary Purpose Family History No Family History Records FoundNo Family History Records FoundNo Family History Records FoundNo Family History Records Found Advance Directives Advance Directive Response Recorded Date/ Time Do you have a Healthcare Power of Customer Engineer? No December 23, 2024 1:20pm Chief Complaint and Reason for Visit Chief Complaint Admit Date chest pain December 23, 2024 1:11pm Additional Source Comments INFORMATION SOURCE (unrecogn ized section and content) DATE CREATED AUTHOR 11/07/2019 [employer] DATE CREATED AUTHOR AUTHOR'S ORGANIZ ATION 03/09/2020 [facility] DATE CREATED AUTHOR AUTHOR'S ORGANIZ ATION 06/07/2021 [facility] DATE CREATED AUTHOR AUTHOR'S ORGANIZ ATION 11/21/[address] [facility] Source Comments (unrecognize d section and content) In the event this informatio n is protected by the Federal Confidentiality of Alcohol and Drug Abuse Patient Records regulations: The Federal rules restrict any use of the information to criminally investigate or prosecute any alcohol or drug abuse patient.[facility] the event this information is protected by the Federal Confidentiality of Alcohol and Drug Abuse Patient Records regulations: The Federal rules restrict any use of the information to criminally investigate or prosecute any alcohol or drug abuse patient.[facility] HospitalIn the event this information is protected by the Federal Confidentiality of Alcohol and Drug Abuse Patient Records regulations: The Federal rules restrict any use of the information to criminally investigate or prosecute any alcohol or drug abuse patient.[facility] Hospital[facility] the event this information is protected by the Federal Confidentiality of Alcohol and Drug Abuse Patient Records regulations: The Federal rules restrict any use of the information to criminally investigate or prosecute any alcohol or drug abuse patient.[facility] HospitalIn the event this information is protected by the Federal Confidentiality of Alcohol and Drug Abuse Patient Records regulations: The Federal rules restrict any use of the information to criminally investigate or prosecute any alcohol or drug abuse patient.[facility] HospitalIn the event this information is protected by the Federal Confidentiality of Alcohol and Drug Abuse Patient Records regulations: The Federal rules restrict any use of the information to criminally investigate or prosecute any alcohol or drug abuse patient.[facility] HospitalIn the event this information is protected by the Federal Confidentiality of Alcohol and Drug Abuse Patient Records regulations: The Federal rules restrict any use of the information to criminally investigate or prosecute any alcohol or drug abuse patient.[facility] HospitalIn the event this information is protected by the Federal Confidentiality of Alcohol and Drug Abuse Patient Records regulations: The Federal rules restrict any use of the information to criminally investigate or prosecute any alcohol or drug abuse patient.[facility] HospitalIn the event this information is protected by the Federal Confidentiality of Alcohol and Drug Abuse Patient Records regulations: The Federal rules restrict any use of the information to criminally investigate or prosecute any alcohol or drug abuse patient.[facility] HospitalIn the event this information is protected by the Federal Confidentiality of Alcohol and Drug Abuse Patient Records regulations: The Federal rules restrict any use of the information to criminally investigate or prosecute any alcohol or drug abuse patient.[facility] HospitalIn the event this information is protected by the Federal Confidentiality of Alcohol and Drug Abuse Patient Records regulations: The Federal rules restrict any use of the information to criminally investigate or prosecute any alcohol or drug abuse patient.[facility] HospitalIn the event this information is protected by the Federal Confidentiality of Alcohol and Drug Abuse Patient Records regulations: The Federal rules restrict any use of the information to criminally investigate or prosecute any alcohol or drug abuse patient.[facility] HospitalIn the event this information is protected by the Federal Confidentiality of Alcohol and Drug Abuse Patient Records regulations: The Federal rules restrict any use of the information to criminally investigate or prosecute any alcohol or drug abuse patient.[facility] HospitalIn the event this information is protected by the Federal Confidentiality of Alcohol and Drug Abuse Patient Records regulations: The Federal rules restrict any use of the information to criminally investigate or prosecute any alcohol or drug abuse patient.[facility] HospitalIn the event this information is protected by the Federal Confidentiality of Alcohol and Drug Abuse Patient Records regulations: The Federal rules restrict any use of the information to criminally investigate or prosecute any alcohol or drug abuse patient.[facility] HospitalIn the event this information is protected by the Federal Confidentiality of Alcohol and Drug Abuse Patient Records regulations: The Federal rules restrict any use of the information to criminally investigate or prosecute any alcohol or drug abuse patient.[facility] HospitalIn the event this information is protected by the Federal Confidentiality of Alcohol and Drug Abuse Patient Records regulations: The Federal rules restrict any use of the information to criminally investigate or prosecute any alcohol or drug abuse patient.[facility] HospitalIn the event this information is protected by the Federal Confidentiality of Alcohol and Drug Abuse Patient Records regulations: The Federal rules restrict any use of the information to criminally investigate or prosecute any alcohol or drug abuse patient.[facility] HospitalIn the event this information is protected by the Federal Confidentiality of Alcohol and Drug Abuse Patient Records regulations: The Federal rules restrict any use of the information to criminally investigate or prosecute any alcohol or drug abuse patient.[facility] HospitalIn the event this information is protected by the Federal Confidentiality of Alcohol and Drug Abuse Patient Records regulations: The Federal rules restrict any use of the information to criminally investigate or prosecute any alcohol or drug abuse patient.[facility] HospitalIn the event this information is protected by the Federal Confidentiality of Alcohol and Drug Abuse Patient Records regulations: The Federal rules restrict any use of the information to criminally investigate or prosecute any alcohol or drug abuse patient.[facility] HospitalIn the event this information is protected by the Federal Confidentiality of Alcohol and Drug Abuse Patient Records regulations: The Federal rules restrict any use of the information to criminally investigate or prosecute any alcohol or drug abuse patient.[facility] HospitalIn the event this information is protected by the Federal Confidentiality of Alcohol and Drug Abuse Patient Records regulations: The Federal rules restrict any use of the information to criminally investigate or prosecute any alcohol or drug abuse patient.[facility] HospitalIn the event this information is protected by the Federal Confidentiality of Alcohol and Drug Abuse Patient Records regulations: The Federal rules restrict any use of the information to criminally investigate or prosecute any alcohol or drug abuse patient.[facility] HospitalIn the event this information is protected by the Federal Confidentiality of Alcohol and Drug Abuse Patient Records regulations: The Federal rules restrict any use of the information to criminally investigate or prosecute any alcohol or drug abuse patient.[facility] HospitalIn the event this information is protected by the Federal Confidentiality of Alcohol and Drug Abuse Patient Records regulations: The Federal rules restrict any use of the information to criminally investigate or prosecute any alcohol or drug abuse patient.[facility] HospitalIn the event this information is protected by the Federal Confidentiality of Alcohol and Drug Abuse Patient Records regulations: The Federal rules restrict any use of the information to criminally investigate or prosecute any alcohol or drug abuse patient.[facility] HospitalIn the event this information is protected by the Federal Confidentiality of Alcohol and Drug Abuse Patient Records regulations: The Federal rules restrict any use of the information to criminally investigate or prosecute any alcohol or drug abuse patient.[facility] Reason for Visit (unrecogniz ed section and content) Reason Onset Date Comments Refill Request 09/28/2021 Reason Onset Date Comments Colorectal Cancer Screening 11/19/2021 Reason Comments Physical Reason Onset Date Comments Refill Request 04/04/2022 Reason Comments 6 Month Exam Reason Comments New Pain Specialty Diagnoses / Procedures Referred By Jerad salvador Referred To Contact Podiatry Diagnoses Foot pain, left Procedures CONSULT TO PODIATRY OFFICE/OUTPATIENT NEW HIGH MDM 60-74 MINUTES Rogerio Millan MD [address] [place] [address] Referral ID Status Reason Start Date Expiration Date V isits Requested Visits Authorized [id number] Closed PCP Requested Referral 07/12/2022 07/12/2023 1 1 Reason Onset Date Comments 6 Month Exam Immunizations 01/10/2023 Flu vaccination Reason Comments Results Reason Comments 6 Month Exam Reason Onset Date Comments Refill Request 08/03/2023 Reason Comments 6 Month Exam Reason Comments Yearly Exam Annual exam, also di scuss labs Reason Comments Forms Reason Onset Date Comments Refill Request 07/29/2024 Reason Onset Date Comments Refill Request 08/27/2024 Reason Onset Date Comments Refill Request 11/05/2024 Erroneous encounter-disregard 11/05/2024 Care Teams (unrecognized sec tion and content) Audit Consultant Relationship Specialty Start Date End Date Rogerio Millan MD [address] [place], [place] [id number] PCP - General Family Practice 03/25/14 Audit Consultant Relationship Specialty Start Date End Date Rogerio Millan MD [address] [place] [address] PCP - General Family Practice 03/25/14 Audit Consultant Relationship Specialty Start Date End Date Rogerio Millan MD [address] [place] [address] PCP - General Family Medicine 03/25/14 Audit Consultant Relationship Specialty Start Date End Date Rogerio Millan MD [address] [place] [address] PCP - General Family Medicine 03/25/14 Audit Consultant Relationship Specialty Start Date End Date Rogerio Millan MD [address] [place] [address] PCP - General Family Medicine 03/25/14 Audit Consultant Relationship Specialty Start Date End Date Rogerio Millan MD [address] [place] [address] PCP - General Family Medicine 03/25/14 Audit Consultant Relationship Specialty Start Date End Date Rogerio Millan MD [address] [place] [address] PCP - General Family Medicine 03/25/14 Audit Consultant Relationship Specialty Start Date End Date Rogerio Millan MD [address] [place] [address] PCP - General Family Medicine 03/25/14 Audit Consultant Relationship Specialty Start Date End Date Rogerio Millan MD [address] [place] [address] PCP - General Family Medicine 03/25/14 Audit Consultant Relationship Specialty Start Date End Date Rogerio Millan MD [address] [place] [address] PCP - General Family Medicine 03/25/14 Audit Consultant Relationship Specialty Start Date End Date Rogerio Millan MD [address] [place] [address] PCP - General Family Medicine 03/25/14 Audit Consultant Relationship Specialty Start Date End Date Rogerio Millan MD [address] [place] [address] PCP - General Family Medicine 03/25/14 Audit Consultant Relationship Specialty Start Date End Date Rogerio Millan MD [address] [place] [address] PCP - General Family Medicine 03/25/14 Audit Consultant Relationship Specialty Start Date End Date Rogerio Millan MD [address] [place] [address] PCP - General Family Medicine 03/25/14 Audit Consultant Relationship Specialty Start Date End Date Rogerio Millan MD [address] [place] [address] PCP - General Family Medicine 03/25/14 Audit Consultant Relationship Specialty Start Date End Date Rogerio Millan MD [address] [place] [address] PCP - General Family Medicine 03/25/14 Audit Consultant Relationship Specialty Start Date End Date Rogerio Millan MD [address] [place] [address] PCP - General Family Medicine 03/25/14 Anne Gibbons, CAIN.TREE WORKER [address] [place] [address] Electron Beam Photo Mask Technician Family Medicine 03/29/24 Rona Rodriguez APRN.TREE WORKER [address] [place] [address] Electron Beam Photo Mask Technician Family Medicine 03/29/24 Audit Consultant Relationship Specialty Start Date End Date Rogerio Millan MD [address] [place] [address] PCP - General Family Medicine 03/25/14 Anne Gibbons APRN.TREE WORKER [address] [place] [address] Electron Beam Photo Mask Technician Family Medicine 03/29/24 Rona Rodriguez APRN.TREE WORKER [address] [place] [address] Electron Beam Photo Mask Technician Family Medicine 03/29/24 Audit Consultant Relationship Specialty Start Date End Date Rogerio Millan MD [address] [place] [address] PCP - General Family Medicine 03/25/14 Anne Gibbons APRN.TREE WORKER [address] [place] [address] Electron Beam Photo Mask Technician Family Medicine 03/29/24 Rona Rodriguez APRN.TREE WORKER [address] [place] [address] Electron Beam Photo Mask Technician Family Medicine 03/29/24 Audit Consultant Relationship Specialty Start Date End Date Rogerio Millan MD [address] [place] [address] PCP - General Family Medicine 03/25/14 Anne Gibbons APRN.TREE WORKER [address] [place] [address] Electron Beam Photo Mask Technician Family Medicine 03/29/24 Rona Rodriguez APRN.TREE WORKER [address] [place] [address] Electron Beam [facility] 03/29/24 Audit Consultant Relationship Specialty Start Date End Date Rogerio Millan MD [address] [place] [id number] PCP - General Family Medicine 03/25/14 Anne Gibbons JAPANESE INTERPRETER.TREE WORKER [address] [facility] [place] [id number] Electron Beam Photo [facility] 03/29/24 Rona Rodriguez JAPANESE INTERPRETER.TREE WORKER [address] [facility] [place] [id number] [facility] 03/29/24 Audit Consultant Relationship Specialty Start Date End Date Rogerio Millan MD [address] [facility] [place] [id number] PCP - General Family Medicine 03/25/14 Anne Gibbons JAPANESE INTERPRETER.TREE WORKER [address] [place] [id number] Electron Beam Photo [facility] 03/29/24 Rona Rodriguez JAPANESE INTERPRETER.TREE WORKER [address] [facility] [place] [id number] [facility] 03/29/24 Audit Consultant Relationship Specialty Start Date End Date Rogerio Millan MD [address] [facility] [place] [id number] PCP - General Family Medicine 03/25/14 Anne Gibbons JAPANESE INTERPRETER.TREE WORKER [address] [facility] [place] [id number] [facility] 03/29/24 Rona Rodriguez JAPANESE INTERPRETER.TREE WORKER [address] [place] [id number] [facility] 03/29/24 Audit Consultant Relationship Specialty Start Date End Date Rogerio Millna MD [address] [place] [address] PCP - General Family Medicine 03/25/14 Anne Gibbons, JAPANESE INTERPRETER.TREE WORKER [address] [place] [id number] [facility] 03/29/24 Rona Rodriguez JAPANESE INTERPRETER.TREE WORKER [address] [place] [address] [facility] 03/29/24 Audit Consultant Relationship Specialty Start Date End Date Rogerio Millan MD [address] [place] [address] PCP - General Family Medicine 03/25/14 Anne Gibbons JAPANESE INTERPRETER.TREE WORKER [address] [place] [address] [facility] 03/29/24 Rona Rodriguez JAPANESE INTERPRETER.TREE WORKER [address] [place] [id number] [facility] 03/29/24 Team Status: Active Member Role/Relationship Status Dates Dr. Rogerio Millan MD Primary Care Provider Active Team Status: Inactive Member Role/Relationship Status Dates Dr. Rogerio Millan MD Primary Care Provider Active Start: December 23, 2024 End: December 23, 2024 Dr. Alfredo Aguirre , DO Emergency Provider Active Start: December 23, 2024 End: December 23, 2024 Goals (unrecognized section and content) Goals may be documented in a n alternate section FOR RECORDS PERTAINING TO PATIENTS WHO ARE OR HAVE BEEN ENROLLED IN A CHEMICAL DEPENDENCY/SUBSTANCEABUSE PROGRAM, SOME INFORMATION MAY BE OMITTED. This clinical summary was aggregated from multiple sources. Caution should be exercised in using it in the provision of clinical care. This summary normalizes information from multiple sources, and as a consequence, information in this document may materially change the coding, format and clinical context of patient data. In addition, data may be omitted in some cases. CLINICAL DECISIONS SHOULD BE BASED ON THE PRIMARY CLINICAL RECORDS. [facility]. provides no warranty or guarantee of the accuracy or completeness of information in this document.
== END 2024-12-23 18:20 | disposition home or self-care (01) ==
PROVIDERS: Emergency Provider Emergency Medicine; PCP Family Medicine; Visit Provider Emergency Medicine
DX: R07.89 Other chest pain (principal); J44.1 Chronic obstructive pulmonary disease with (acute) exacerbation; J06.9 Acute upper respiratory infection, unspecified; F17.210 Nicotine dependence, cigarettes, uncomplicated
CPT/HCPCS: 71046; 80048; 83880; 84484; 85025; 93005; 94640; 96374; 99285; A4216